=== PATIENT | male | born 1945 | race American Indian/Alaskan Native ===

== ENCOUNTER 2018-09-11 20:13 | Inpatient (IN) | payer MEDICARE ==
[2018-09-11 20:13] VITALS: BMI 22.8
--- NOTE | 2018-09-11 20:36 | C.PDOC ---
History Of Present Illness 73 year old male with PMHx TIA, HTN, CRI, seizure disorder presents to the ED for evaluation of SOB, weakness that started today. As per Family, patient appeared "winded" and could not walk without assistance. Patient denies history of asthma, CHF. Patient currently feels "back to normal" s/p nebulizer. Patient denies fever, chills, nausea, vomit, diarrhea, CP, palpitations, headache, dizziness, weakness, numbness, leg swelling. Patient currently taking diuretic. Patient's history limited due to clinical condition. LIMITED DUE TO CLIN COND SOB, WEAKNESS TODAY. PER FAMILY, PT APPEARED "WINDED" AND COULDNT WALK WO ASSISTANCE. PT DENIES HO ASTHMA, CHF. CURRENTLY FEELS "BACK TO NORMAL" S/P NEB. NO FEVER, CP, LEG SWELLING. ON DIURETIC. PMH TIA, HTN, CRI, SZ DO EXAM S/P DUONEB NARD APPEARS COMFORTABLE HEENT NEG LUNGS CTA B/L NO W/R/R NO RETRACTIONS, TACHYPNEA EXT NO EDEMA RRR REMAINDER NEG Time Seen by Provider: 09/11/18 20:25 Chief Complaint (Nursing): Shortness Of Breath History Per: Patient, Family History/Exam Limitations: clinical condition Onset/Duration Of Symptoms: Hrs Current Symptoms Are (Timing): Better Initiating Event: Upper Respiratory Illness Quality: "Pain" Current Respiratory Medications: See Home Med List Associated Symptoms: Other (feeling winded) Recent travel outside of the [place]: No Additional History Per: Patient Past Medical History Reviewed: Historical Data, Nursing Documentation, Vital Signs Vital Signs: Last Vital Signs Temp 97.3 F L 09/11/18 20:17 Pulse 101 H 09/11/18 20:17 Resp 40 H 09/11/18 20:17 BP 143/63 09/11/18 20:17 Pulse Ox 93 L 09/11/18 20:17 - Medical History PMH: Diabetes, HTN, Hypercholesterolemia, Hyperlipidemia, Seizures Denies: Chronic Kidney Disease Surgical History: No Surg Hx Family History: States: Unknown Family Hx - Social History Hx Tobacco Use: No Hx Alcohol Use: No Hx Substance Use: No - Immunization History Hx Tetanus Toxoid Vaccination: No Hx Influenza Vaccination: Yes Hx Pneumococcal Vaccination: Yes Review Of Systems Constitutional: Positive for: Weakness. Negative for: Fever, Chills Cardiovascular: Negative for: Chest Pain Respiratory: Positive for: Shortness of Breath. Negative for: Cough, Sputum, Wheezing Gastrointestinal: Negative for: Nausea, Vomiting, Abdominal Pain Genitourinary: Negative for: Dysuria, Hematuria Skin: Negative for: Rash Neurological: Negative for: Numbness, Headache, Dizziness Physical Exam - Physical Exam Appears: Non-toxic, Other (s/p duoneb appears comfortable) Skin: Normal Color, Warm, Dry Head: Atraumatic, Normacephalic Eye(s): bilateral: Normal Inspection Oral Mucosa: Moist Neck: Normal ROM, Supple Chest: Symmetrical Cardiovascular: Rhythm Regular Respiratory: Normal Breath Sounds, No Rales, No Rhonchi, No Wheezing, Other (no retractions, dyspnea, s/p nebulizer NARD) Gastrointestinal/Abdominal: Soft, No Tenderness, No Guarding, No Rebound Extremity: Normal ROM, No Tenderness, No Swelling Neurological/Psych: Oriented x3, Normal Speech, Normal Cognition Gait: Steady ED Course And Treatment - Laboratory Results Result Diagrams: 09/11/18 20:41 09/11/18 20:41 ECG: Interpreted By Ma ECG Rhythm: Sinus Rhythm ECG Interpretation: No Changes From Prior Rate From EC (BPM) O2 Sat by Pulse Oximetry: 93 Pulse Ox Interpretation: Abnormal Progress - Re-Evaluation Re-evaluation Note: 09/11/18 21:34 CODE SEPSIS ACTIVATED. NARD FEELS BETTER SINCE PRIOR EVAL. VSS. NEW RENAL INSUFF COMPARED TO PRIOR. ECHO 2016 REVIEWED, UNK CURRENT CARDIAC STATUS. WILL DEFER IVF SEPSIS PROTOCOL PENDING CARDIAC EVAL. 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 - Data Reviewed Data Reviewed: Lab, Diagnostic imaging, EKG, Old records Medical Decision Making Medical Decision Making: Plan: * VBG * EKG * Labs * CXR Disposition Counseled Patient/Family Regarding: Studies Performed, Diagnosis - Disposition Disposition: HOSPITALIZED Disposition Time: 22:10 Condition: STABLE - POA Present On Arrival: Poor Glycemic Control - Clinical Impression Clinical Impression: Acute on chronic renal insufficiency, Pneumonia - Scribe Statement The provider has reviewed the documentation as recorded by the Scribe Eduardo Godwin All medical record entries made by the Scribe were at my direction and personally dictated by me. I have reviewed the chart and agree that the record accurately reflects my personal performance of the history, physical exam, medical decision making, and the department course for this patient. I have also personally directed, reviewed, and agree with the discharge instructions and disposition.
[2018-09-11 20:45] LABS: BASO # 0.1 K/uL (0.0-0.2); BASO % 0.4 % (0.0-2.0); EOS % 0.1 % (0.0-4.0); HEMOGLOBIN 11.6 g/dL (12.0-18.0); LYMPH # 1.3 K/uL (1.0-4.3); LYMPH % 5.9 % (20.0-40.0); MEAN CELL VOLUME 85.4 fL (80.0-94.0); MEAN CORPUSCULAR HEMOGLOBIN 27.8 pg (27.0-31.0); MEAN CORPUSCULAR HGB CONC 32.5 g/dL (33.0-37.0); MEAN PLATELET VOLUME 8.1 fL (7.2-11.7); MONO # 1.6 K/uL (0.0-0.8); MONO % 7.2 % (0.0-10.0); NEUT # 18.8 K/uL (1.8-7.0); NEUT % 86.4 % (50.0-75.0); PLATELET COUNT 369 K/uL (130-400); RBC 4.17 Mil/uL (4.40-5.90); RED CELL DISTRIBUTION WIDTH 14.1 % (11.5-14.5)
[2018-09-11 20:47] LABS: VENOUS BLOOD GAS PCO2 38 mmHg (40-60); VENOUS BLOOD GAS PO2 43 mm/Hg (30-55); VENOUS BLOOD PH 7.32 (7.32-7.43)
[2018-09-11 20:48] LABS: WHITE BLOOD COUNT 21.7 K/uL (4.8-10.8)
[2018-09-11] MEDS ORDERED: Albuterol-Ipratrop 3 mg / 0.5 (3 ml) UD INH STA ×3 (20:54→20:56)
[2018-09-11] MEDS ORDERED: Cefepime IV 2 gm in Dextrose 2 GM/100 ML BAG IVPB STA (20:57)
[2018-09-11 21:08] LABS: ALB/GLOB RATIO 0.9 (1.0-2.1); ALBUMIN 4.1 g/dL (3.5-5.0); CALCIUM 9.4 mg/dl (8.6-10.4)
[2018-09-11 21:19] LABS: TROPONIN I 0.034 ng/mL (0.00-0.120)
[2018-09-11] MEDS ORDERED: Sodium Chloride 0.9% 250 ML IV ONE (21:36)
[2018-09-11 21:40] LABS: LYMPHOCYTE 3 % (20-40); MONOCYTE 6 % (0-10); NEUTROPHIL 91 % (50-75); PLATELET ESTIMATE NORMAL (NORMAL); TOTAL CELLS COUNTED 100
[2018-09-11 21:57] LABS: INR 1.2; PROTHROMBIN TIME 13.6 SECONDS (9.7-12.2)
[2018-09-11 22:50] LABS: URINE AMORPHOUS SEDIMENT FEW /ul (<OCC); URINE BACTERIA RARE (<OCC); URINE BILIRUBIN NEGATIVE (NEGATIVE); URINE BLOOD 2+ (NEGATIVE); URINE CLARITY Hazy (Clear); URINE GLUCOSE (UA) NORMAL (Normal); URINE LEUKOCYTE ESTERASE NEG Leu/uL (Negative); URINE PROTEIN 1+ mg/dL (NEGATIVE)
[2018-09-11 23:02] LABS: URINE COLOR YELLOW (YELLOW)
[2018-09-11] MEDS ORDERED: Azithromycin 500mg/250ML NS 500 MG/250 ML BAG IVPB STA (23:03)
[2018-09-11] MEDS ORDERED: Azithromycin 500mg/250ML NS 500 MG/250 ML BAG IVPB ONE (23:32)
[2018-09-12 00:24] LABS: VENOUS BLOOD GAS BASE EXCESS -5.7 mmol/L (0.0-2.0); VENOUS BLOOD GAS PCO2 31 mmHg (40-60); VENOUS BLOOD GAS PO2 52 mm/Hg (30-55); VENOUS BLOOD PH 7.38 (7.32-7.43)
[2018-09-12] MEDS: Dextrose 5%/0.9% NS 1,000 ML IV SCH ×2 (00:31→18:49)
[2018-09-12] MEDS: Albuterol-Ipratrop 3 mg / 0.5 (3 ml) UD INH SCH ×3 (03:24→19:12)
[2018-09-12 04:11] LABS: BASO # 0.3 K/uL (0.0-0.2); BASO % 1.2 % (0.0-2.0); EOS % 0.1 % (0.0-4.0); HEMOGLOBIN 10.5 g/dL (12.0-18.0); LYMPH % 4.6 % (20.0-40.0); MEAN CELL VOLUME 84.4 fL (80.0-94.0); MEAN CORPUSCULAR HEMOGLOBIN 27.7 pg (27.0-31.0); MEAN CORPUSCULAR HGB CONC 32.8 g/dL (33.0-37.0); MEAN PLATELET VOLUME 7.7 fL (7.2-11.7); MONO # 0.7 K/uL (0.0-0.8); MONO % 3.1 % (0.0-10.0); PLATELET COUNT 309 K/uL (130-400); RBC 3.79 Mil/uL (4.40-5.90); WHITE BLOOD COUNT 20.9 K/uL (4.8-10.8)
[2018-09-12 04:30] LABS: ALB/GLOB RATIO 0.9 (1.0-2.1); ALBUMIN 3.4 g/dL (3.5-5.0); CALCIUM 8.5 mg/dl (8.6-10.4)
[2018-09-12 05:11] LABS: BANDS 1 % (0-2); BASOPHIL 1 % (0-2); LYMPHOCYTE 3 % (20-40); MONOCYTE 4 % (0-10); NEUTROPHIL 91 % (50-75); PLATELET ESTIMATE NORMAL (NORMAL); TOTAL CELLS COUNTED 100
[2018-09-12] MEDS ORDERED: (Novolog) Insulin Aspart, Recombinant 100 u/ml 10 ml vial SC SCH (07:30)
[2018-09-12] MEDS: (Novolog) Insulin Aspart, Recombinant 100 u/ml 10 ml vial SC SCH ×4 (08:00→22:00)
--- NOTE | 2018-09-12 08:53 | RAD ---
Date of service: 09/11/2018 PROCEDURE: CHEST RADIOGRAPH, 1 VIEW HISTORY: SOB COMPARISON: 10/28/2015. FINDINGS: LUNGS: The right lung is hyperinflated. There is multifocal consolidation in the left lung, worse in the lower lobes. PLEURA: Small left pleural effusion. No pneumothorax. CARDIOVASCULAR: The heart is normal in size. No aortic atherosclerotic calcifications present. OSSEOUS STRUCTURES: Within normal limits for the patient's age. VISUALIZED UPPER ABDOMEN: Normal. OTHER FINDINGS: None. IMPRESSION: Multifocal pneumonia in the left lung, worse in the lower lobes. Small left pleural effusion.
--- NOTE | 2018-09-12 09:34 | CP.PCM.PN ---
Subjective - Date & Time of Evaluation Date of Evaluation: 09/12/18 Time of Evaluation: 09:34 - Subjective Subjective: H&P dictated #[id number] Objective - Vital Signs/Intake and Output Vital Signs (last 24 hours): Temp Pulse Resp BP Pulse Ox 98.2 F 99 H 24 152/65 H 97 09/12/18 08:30 09/12/18 08:30 09/12/18 08:30 09/12/18 08:30 09/12/18 08:30 Intake and Output: 09/12/18 09/12/18 06:59 18:59 Output Total 250 Balance -250 - Medications Medications: Current Medications Albuterol/Ipratropium (Duoneb 3 Mg/0.5 Mg (3 Ml) Ud) 3 ml INH RQ6 [facility] Last Admin: 09/12/18 03:24 Dose: Not Given Aspirin (Aspirin) 325 mg PO DAILY [facility] Carvedilol (Coreg) 12.5 mg PO Q12 [facility] Dextrose/Sodium Chloride (Dextrose 5%/0.9% Ns 1000 Ml) 1,000 mls @ 70 mls/hr IV .[id number] [facility] Last Admin: 09/12/18 00:31 Dose: 70 mls/hr Insulin Aspart (Novolog) 0 unit SC ACHS [facility]; Protocol Rosuvastatin Calcium (Crestor) 20 mg PO HS [facility] - Labs Labs: 09/12/18 04:08 09/12/18 04:08 PT 13.6 SECONDS (9.7-12.2) H 09/11/18 21:50 INR 1.2 09/11/18 21:50 APTT 33 SECONDS (21-34) 09/11/18 21:50
[2018-09-12] MEDS: Piperacill/Tazo 2.25gm in Dex 2.25 GM/50 ML BAG IVPB SCH ×3 (10:29→21:39)
[2018-09-12] MEDS ORDERED: (Novolog) Insulin Aspart, Recombinant 100 u/ml 10 ml vial ONE (12:10)
--- NOTE | 2018-09-12 13:24 | CT ---
Date of service: 09/11/2018 PROCEDURE: CT Chest without contrast HISTORY: r/o infiltrate COMPARISON: None available. TECHNIQUE: Contiguous axial images were obtained through the chest without intravenous contrast enhancement. Sagittal and coronal reconstructions were performed. Radiation dose (DLP): 325.83 mGy-cm. This CT exam was performed using one or more of the following dose reduction techniques: Automated exposure control, adjustment of the mA and/or kV according to patient size, and/or use of iterative reconstruction technique. FINDINGS: LUNGS: Extensive left lower lobe consolidation/opacity. Likely pneumonia. Patchy left apical infiltrate. Diffuse centrilobular pulmonary emphysema. No pulmonary mass. MEDIASTINUM: Unremarkable thoracic aorta. No aneurysm. Normal sized heart. Main pulmonary artery unremarkable. No vascular congestion. Solitary mildly enlarged precarinal lymph node, 10 mm in short axis. There is calcified atherosclerotic plaque in the thoracic aorta. Very small hiatal hernia. PLEURA: Trace left pleural effusion. No right pleural effusion. No pneumothorax. BONES: No fracture. No destructive lesion. UPPER ABDOMEN: Grossly unremarkable. OTHER FINDINGS: None. IMPRESSION: Left upper lobe and left lower lobe infiltrates. Trace left pleural effusion. Centrilobular pulmonary emphysema. Likely pneumonia. The preliminary findings for this examination were reported by [facility] at 12:35 a.m. on 09/12/2018. There is concurrence of this report with the preliminary findings.
--- NOTE | 2018-09-12 17:43 | CP.PCM.CON ---
History of Present Illness - History of Present Illness History of Present Illness: 73 year old male with PMH of TIA, HTN, CRI, and seizure disorder presents with 2 days of progressively worsening SOB, dyspnea on exertion, and generalized weakness. Patient was treated with nebulizer in ED to which he responded favorab ly. CT chest showed left sided infiltrate, patient initially started on azithromycin and cefepime. 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 There are no known recent sick contacts at home, although there are many children according to daughter. Denies fever, chills, chest pain. PMH: TIA, HTN, CRI, seizure disorder, TB exposure (March 2018, on isoniazid) PSH: denies All: denies FamH: noncontributary SocialH: lives with daughter; denies tobacco/alcohol/illicit drug use ROS: 10 point ROS negative except as mentioned in HPI Exam Lungs - diminished breath sounds bilaterally, no wheezes, rales, or rhonchi A&P 1. Pneumonia - 09/11/18 CXR: Multifocal pneumonia in left lung, worse in lower lobes, small left pleural effusion. - 09/11/[address]: L upper and L lower lobe infiltrates, trace left pleural effusion, centrilolobular pulmonary emphysema. - afebrile, WBC 20.9, continue to monitor - continue antibiotics, currently on Zosyn - continue Duoneb Past Patient History - Infectious Disease Hx of Infectious Diseases: None - Past Medical History & Family History Past Medical History?: Yes - Past Social History Smoking Status: Former Smoker - CARDIAC Hx Cardiac Disorders: Yes Hx Hypercholesterolemia: Yes Hx Hypertension: Yes - PULMONARY Hx Respiratory Disorders: No - NEUROLOGICAL Hx Seizures: Yes Hx Transient Ischemic Attacks (TIA): Yes ([address] [facility] [place] - HEENT Hx HEENT Problems: No - RENAL Hx Chronic Kidney Disease: No - ENDOCRINE/METABOLIC Hx Endocrine Disorders: Yes Hx Diabetes Mellitus Type 1: Yes - HEMATOLOGICAL/ONCOLOGICAL Hx Blood Disorders: No - INTEGUMENTARY Hx Dermatological Problems: No - MUSCULOSKELETAL/RHEUMATOLOGICAL Hx Musculoskeletal Disorders: Yes Hx Falls: Yes Hx Gout: Yes - GASTROINTESTINAL Hx Gastrointestinal Disorders: No - GENITOURINARY/GYNECOLOGICAL Hx Genitourinary Disorders: No - PSYCHIATRIC Hx Psychophysiologic Disorder: No Hx Substance Use: No - SURGICAL HISTORY Hx Surgeries: Yes Other/Comment: " vein surgery " for circulation - ANESTHESIA Hx Anesthesia: Yes Hx Anesthesia Reactions: No Has any member of the family had a problem w/ anesthesia?: No Meds Allergies/Adverse Reactions: Allergies Allergy/AdvReac Type Severity Reaction Status Date / Time lisinopril Allergy Verified 09/11/18 20:23 - Medications Medications: Current Medications Albuterol/Ipratropium (Duoneb 3 Mg/0.5 Mg (3 Ml) Ud) 3 ml INH RQ6 [facility] Last Admin: 09/12/18 10:23 Dose: 3 ml Aspirin (Aspirin) 325 mg PO DAILY [facility] Last Admin: 09/12/18 10:02 Dose: 325 mg Carvedilol (Coreg) 12.5 mg PO Q12 [facility] Last Admin: 09/12/18 10:02 Dose: 12.5 mg Heparin Sodium (Porcine) (Heparin) 5,000 units SC Q8 [facility] Dextrose/Sodium Chloride (Dextrose 5%/0.9% Ns 1000 Ml) 1,000 mls @ 70 mls/hr IV .[id number] [facility] Last Admin: 09/12/18 00:31 Dose: 70 mls/hr Piperacillin Sod/Tazobactam Sod (Zosyn 2.25 Gm Iv Premix) 2.25 gm in 50 mls @ 100 mls/hr IVPB Q6H [facility]; Protocol Last Admin: 09/12/18 10:29 Dose: 100 mls/hr Insulin Aspart (Novolog) 0 unit SC ACHS [facility]; Protocol Last Admin: 09/12/18 12:14 Dose: 1 unit Rosuvastatin Calcium (Crestor) 20 mg PO HS [facility] Results - Vital Signs Recent Vital Signs: Last Vital Signs Temp 98.0 F 09/12/18 15:01 Pulse 79 09/12/18 15:30 Resp 20 09/12/18 15:01 BP 147/77 09/12/18 15:01 Pulse Ox 97 09/12/18 15:01 - Labs Result Diagrams: 09/12/18 04:08 09/12/18 04:08 Labs: Laboratory Results - last 24 hr 09/11/18 09/11/18 09/11/18 20:21 20:30 20:41 WBC 21.7 H D RBC 4.17 L Hgb 11.6 L Hct 35.7 MCV 85.4 MCH 27.8 MCHC 32.5 L RDW 14.1 Plt Count 369 D MPV 8.1 Neut % (Auto) 86.4 H Lymph % (Auto) 5.9 L [place] % (Auto) 7.2 Eos % (Auto) 0.1 Baso % (Auto) 0.4 Neut # (Auto) 18.8 H Lymph # (Auto) 1.3 [place] # (Auto) 1.6 H Eos # (Auto) 0.0 Baso # (Auto) 0.1 Neutrophils % (Manual) 91 H Band Neutrophils % Lymphocytes % (Manual) 3 L Monocytes % (Manual) 6 Basophils % (Manual) Platelet Estimate Normal RBC Morphology Normal ESR PT INR APTT pO2 43 VBG pH 7.32 VBG pCO2 38 L VBG HCO3 19.6 VBG Total CO2 20.8 L VBG O2 Sat (Calc) 76.1 H VBG Base Excess -6.0 L VBG Potassium 5.5 H Sodium 133.0 Chloride 99.0 Glucose 149 H Lactate 2.2 H Potassium Carbon Dioxide Anion Gap BUN Creatinine Est GFR ( Amer) Est GFR (Non-Af Amer) POC Glucose (mg/dL) 135 H Random Glucose Hemoglobin A1c Calcium Phosphorus Magnesium Total Bilirubin AST ALT Alkaline Phosphatase Troponin I C-Reactive Protein NT-Pro-B Natriuret Pep Total Protein Albumin Globulin Albumin/Globulin Ratio Triglycerides Cholesterol LDL Cholesterol Direct HDL Cholesterol Procalcitonin TSH 3rd Generation Venous Blood Potassium 5.5 H Urine Color Urine Clarity Urine pH Ur Specific [place] Urine Protein Urine Glucose (UA) Urine Ketones Urine Blood Urine Nitrate Urine Bilirubin Urine Urobilinogen Ur Leukocyte Esterase Urine WBC (Auto) Urine RBC (Auto) Amorphous Sediment Urine Bacteria Urine Osmolality Ur Random Sodium Ur Random Potassium Influenza Typ A,B (EIA) Ur L.pneumophila Ag Mycoplasma pneumon IgM 09/11/18 09/11/18 09/11/18 20:41 20:41 21:50 WBC RBC Hgb Hct MCV MCH MCHC RDW Plt Count MPV Neut % (Auto) Lymph % (Auto) [place] % (Auto) Eos % (Auto) Baso % (Auto) Neut # (Auto) Lymph # (Auto) [place] # (Auto) Eos # (Auto) Baso # (Auto) Neutrophils % (Manual) Band Neutrophils % Lymphocytes % (Manual) Monocytes % (Manual) Basophils % (Manual) Platelet Estimate RBC Morphology ESR PT 13.6 H INR 1.2 APTT 33 pO2 VBG pH VBG pCO2 VBG HCO3 VBG Total CO2 VBG O2 Sat (Calc) VBG Base Excess VBG Potassium Sodium 133 Chloride 100 Glucose Lactate Potassium 4.3 Carbon Dioxide 18 L Anion Gap 20 BUN 72 H Creatinine 3.3 H Est GFR ( Amer) 22 Est GFR (Non-Af Amer) 18 POC Glucose (mg/dL) Random Glucose 152 H D Hemoglobin A1c Calcium 9.4 Phosphorus 5.6 H Magnesium 2.3 Total Bilirubin 1.4 H AST 134 H ALT 55 Alkaline Phosphatase 185 H Troponin I 0.0340 C-Reactive Protein NT-Pro-B Natriuret Pep 871 Total Protein 8.8 H Albumin 4.1 Globulin 4.7 H Albumin/Globulin Ratio 0.9 L Triglycerides Cholesterol LDL Cholesterol Direct HDL Cholesterol Procalcitonin TSH 3rd Generation Venous Blood Potassium Urine Color Urine Clarity Urine pH Ur Specific [place] Urine Protein Urine Glucose (UA) Urine Ketones Urine Blood Urine Nitrate Urine Bilirubin Urine Urobilinogen Ur Leukocyte Esterase Urine WBC (Auto) Urine RBC (Auto) Amorphous Sediment Urine Bacteria Urine Osmolality Ur Random Sodium Ur Random Potassium Influenza Typ A,B (EIA) Ur L.pneumophila Ag Mycoplasma pneumon IgM 09/11/18 09/11/18 09/12/18 22:31 22:42 00:20 WBC RBC Hgb Hct MCV MCH MCHC RDW Plt Count MPV Neut % (Auto) Lymph % (Auto) [place] % (Auto) Eos % (Auto) Baso % (Auto) Neut # (Auto) Lymph # (Auto) [place] # (Auto) Eos # (Auto) Baso # (Auto) Neutrophils % (Manual) Band Neutrophils % Lymphocytes % (Manual) Monocytes % (Manual) Basophils % (Manual) Platelet Estimate RBC Morphology ESR PT INR APTT pO2 52 VBG pH 7.38 VBG pCO2 31 L VBG HCO3 20.2 VBG Total CO2 19.3 L VBG O2 Sat (Calc) 90.9 H VBG Base Excess -5.7 L VBG Potassium 3.2 L Sodium 132.0 Chloride 103.0 Glucose 142 H Lactate 1.2 Potassium Carbon Dioxide Anion Gap BUN Creatinine Est GFR ( Amer) Est GFR (Non-Af Amer) POC Glucose (mg/dL) Random Glucose Hemoglobin A1c Calcium Phosphorus Magnesium Total Bilirubin AST ALT Alkaline Phosphatase Troponin I C-Reactive Protein NT-Pro-B Natriuret Pep Total Protein Albumin Globulin Albumin/Globulin Ratio Triglycerides Cholesterol LDL Cholesterol Direct HDL Cholesterol Procalcitonin TSH 3rd Generation Venous Blood Potassium 3.2 L Urine Color Yellow Urine Clarity Hazy Urine pH 5.0 Ur Specific [place] 1.012 Urine Protein 1+ H Urine Glucose (UA) Normal Urine Ketones Negative Urine Blood 2+ H Urine Nitrate Negative Urine Bilirubin Negative Urine Urobilinogen 4.0 Ur Leukocyte Esterase Neg Urine WBC (Auto) < 1 Urine RBC (Auto) 22 H Amorphous Sediment Few H Urine Bacteria Rare Urine Osmolality Ur Random Sodium Ur Random Potassium Influenza Typ A,B (EIA) Negative for flu a/b Ur L.pneumophila Ag Mycoplasma pneumon IgM 09/12/18 09/12/18 09/12/18 01:11 02:00 02:00 WBC RBC Hgb Hct MCV MCH MCHC RDW Plt Count MPV Neut % (Auto) Lymph % (Auto) [place] % (Auto) Eos % (Auto) Baso % (Auto) Neut # (Auto) Lymph # (Auto) [place] # (Auto) Eos # (Auto) Baso # (Auto) Neutrophils % (Manual) Band Neutrophils % Lymphocytes % (Manual) Monocytes % (Manual) Basophils % (Manual) Platelet Estimate RBC Morphology ESR 120 H PT INR APTT pO2 VBG pH VBG pCO2 VBG HCO3 VBG Total CO2 VBG O2 Sat (Calc) VBG Base Excess VBG Potassium Sodium Chloride Glucose Lactate Potassium Carbon Dioxide Anion Gap BUN Creatinine Est GFR ( Amer) Est GFR (Non-Af Amer) POC Glucose (mg/dL) Random Glucose Hemoglobin A1c Calcium Phosphorus Magnesium Total Bilirubin AST ALT Alkaline Phosphatase Troponin I C-Reactive Protein NT-Pro-B Natriuret Pep Total Protein Albumin Globulin Albumin/Globulin Ratio Triglycerides Cholesterol LDL Cholesterol Direct HDL Cholesterol Procalcitonin TSH 3rd Generation Venous Blood Potassium Urine Color Urine Clarity Urine pH Ur Specific [place] Urine Protein Urine Glucose (UA) Urine Ketones Urine Blood Urine Nitrate Urine Bilirubin Urine Urobilinogen Ur Leukocyte Esterase Urine WBC (Auto) Urine RBC (Auto) Amorphous Sediment Urine Bacteria Urine Osmolality Ur Random Sodium 19 Ur Random Potassium 42.3 Influenza Typ A,B (EIA) Ur L.pneumophila Ag Mycoplasma pneumon IgM Negative 09/12/18 09/12/18 09/12/18 02:00 02:00 02:00 WBC RBC Hgb Hct MCV MCH MCHC RDW Plt Count MPV Neut % (Auto) Lymph % (Auto) [place] % (Auto) Eos % (Auto) Baso % (Auto) Neut # (Auto) Lymph # (Auto) [place] # (Auto) Eos # (Auto) Baso # (Auto) Neutrophils % (Manual) Band Neutrophils % Lymphocytes % (Manual) Monocytes % (Manual) Basophils % (Manual) Platelet Estimate RBC Morphology ESR PT INR APTT pO2 VBG pH VBG pCO2 VBG HCO3 VBG Total CO2 VBG O2 Sat (Calc) VBG Base Excess VBG Potassium Sodium Chloride Glucose Lactate Potassium Carbon Dioxide Anion Gap BUN Creatinine Est GFR ( Amer) Est GFR (Non-Af Amer) POC Glucose (mg/dL) Random Glucose Hemoglobin A1c Calcium Phosphorus Magnesium Total Bilirubin AST ALT Alkaline Phosphatase Troponin I C-Reactive Protein 267.30 H NT-Pro-B Natriuret Pep Total Protein Albumin Globulin Albumin/Globulin Ratio Triglycerides Cholesterol LDL Cholesterol Direct HDL Cholesterol Procalcitonin 25.55 H TSH 3rd Generation Venous Blood Potassium Urine Color Urine Clarity Urine pH Ur Specific [place] Urine Protein Urine Glucose (UA) Urine Ketones Urine Blood Urine Nitrate Urine Bilirubin Urine Urobilinogen Ur Leukocyte Esterase Urine WBC (Auto) Urine RBC (Auto) Amorphous Sediment Urine Bacteria Urine Osmolality 383 Ur Random Sodium Ur Random Potassium Influenza Typ A,B (EIA) Ur L.pneumophila Ag Mycoplasma pneumon IgM 09/12/18 09/12/18 09/12/18 04:01 04:08 04:08 WBC 20.9 H RBC 3.79 L Hgb 10.5 L Hct 32.0 L MCV 84.4 MCH 27.7 MCHC 32.8 L RDW 14.0 Plt Count 309 MPV 7.7 Neut % (Auto) 91.0 H Lymph % (Auto) 4.6 L [place] % (Auto) 3.1 Eos % (Auto) 0.1 Baso % (Auto) 1.2 Neut # (Auto) 19.0 H Lymph # (Auto) 1.0 [place] # (Auto) 0.7 Eos # (Auto) 0.0 Baso # (Auto) 0.3 H Neutrophils % (Manual) 91 H Band Neutrophils % 1 Lymphocytes % (Manual) 3 L Monocytes % (Manual) 4 Basophils % (Manual) 1 Platelet Estimate Normal RBC Morphology ESR PT INR APTT pO2 VBG pH VBG pCO2 VBG HCO3 VBG Total CO2 VBG O2 Sat (Calc) VBG Base Excess VBG Potassium Sodium 131 L Chloride 100 Glucose Lactate Potassium 3.6 Carbon Dioxide 17 L Anion Gap 17 BUN 72 H Creatinine 2.8 H Est GFR ( Amer) 27 Est GFR (Non-Af Amer) 22 POC Glucose (mg/dL) Random Glucose 158 H Hemoglobin A1c Calcium 8.5 L Phosphorus Magnesium Total Bilirubin 1.4 H AST 118 H ALT 61 Alkaline Phosphatase 157 H Troponin I C-Reactive Protein NT-Pro-B Natriuret Pep Total Protein 7.2 Albumin 3.4 L Globulin 3.7 Albumin/Globulin Ratio 0.9 L Triglycerides 151 H D Cholesterol 105 LDL Cholesterol Direct 34 HDL Cholesterol 14 L Procalcitonin TSH 3rd Generation 1.09 Venous Blood Potassium Urine Color Urine Clarity Urine pH Ur Specific [place] Urine Protein Urine Glucose (UA) Urine Ketones Urine Blood Urine Nitrate Urine Bilirubin Urine Urobilinogen Ur Leukocyte Esterase Urine WBC (Auto) Urine RBC (Auto) Amorphous Sediment Urine Bacteria Urine Osmolality Ur Random Sodium Ur Random Potassium Influenza Typ A,B (EIA) Ur L.pneumophila Ag Negative Mycoplasma pneumon IgM 09/12/18 09/12/18 09/12/18 04:08 08:00 11:55 WBC RBC Hgb Hct MCV MCH MCHC RDW Plt Count MPV Neut % (Auto) Lymph % (Auto) [place] % (Auto) Eos % (Auto) Baso % (Auto) Neut # (Auto) Lymph # (Auto) [place] # (Auto) Eos # (Auto) Baso # (Auto) Neutrophils % (Manual) Band Neutrophils % Lymphocytes % (Manual) Monocytes % (Manual) Basophils % (Manual) Platelet Estimate RBC Morphology ESR PT INR APTT pO2 VBG pH VBG pCO2 VBG HCO3 VBG Total CO2 VBG O2 Sat (Calc) VBG Base Excess VBG Potassium Sodium Chloride Glucose Lactate Potassium Carbon Dioxide Anion Gap BUN Creatinine Est GFR ( Amer) Est GFR (Non-Af Amer) POC Glucose (mg/dL) 144 H 157 H Random Glucose Hemoglobin A1c 6.0 Calcium Phosphorus Magnesium Total Bilirubin AST ALT Alkaline Phosphatase Troponin I C-Reactive Protein NT-Pro-B Natriuret Pep Total Protein Albumin Globulin Albumin/Globulin Ratio Triglycerides Cholesterol LDL Cholesterol Direct HDL Cholesterol Procalcitonin TSH 3rd Generation Venous Blood Potassium Urine Color Urine Clarity Urine pH Ur Specific [place] Urine Protein Urine Glucose (UA) Urine Ketones Urine Blood Urine Nitrate Urine Bilirubin Urine Urobilinogen Ur Leukocyte Esterase Urine WBC (Auto) Urine RBC (Auto) Amorphous Sediment Urine Bacteria Urine Osmolality Ur Random Sodium Ur Random Potassium Influenza Typ A,B (EIA) Ur L.pneumophila Ag Mycoplasma pneumon IgM 09/12/18 16:36 WBC RBC Hgb Hct MCV MCH MCHC RDW Plt Count MPV Neut % (Auto) Lymph % (Auto) [place] % (Auto) Eos % (Auto) Baso % (Auto) Neut # (Auto) Lymph # (Auto) [place] # (Auto) Eos # (Auto) Baso # (Auto) Neutrophils % (Manual) Band Neutrophils % Lymphocytes % (Manual) Monocytes % (Manual) Basophils % (Manual) Platelet Estimate RBC Morphology ESR PT INR APTT pO2 VBG pH VBG pCO2 VBG HCO3 VBG Total CO2 VBG O2 Sat (Calc) VBG Base Excess VBG Potassium Sodium Chloride Glucose Lactate Potassium Carbon Dioxide Anion Gap BUN Creatinine Est GFR ( Amer) Est GFR (Non-Af Amer) POC Glucose (mg/dL) 166 H Random Glucose Hemoglobin A1c Calcium Phosphorus Magnesium Total Bilirubin AST ALT Alkaline Phosphatase Troponin I C-Reactive Protein NT-Pro-B Natriuret Pep Total Protein Albumin Globulin Albumin/Globulin Ratio Triglycerides Cholesterol LDL Cholesterol Direct HDL Cholesterol Procalcitonin TSH 3rd Generation Venous Blood Potassium Urine Color Urine Clarity Urine pH Ur Specific [place] Urine Protein Urine Glucose (UA) Urine Ketones Urine Blood Urine Nitrate Urine Bilirubin Urine Urobilinogen Ur Leukocyte Esterase Urine WBC (Auto) Urine RBC (Auto) Amorphous Sediment Urine Bacteria Urine Osmolality Ur Random Sodium Ur Random Potassium Influenza Typ A,B (EIA) Ur L.pneumophila Ag Mycoplasma pneumon IgM
--- NOTE | 2018-09-12 17:48 | CP.PCM.CON ---
History of Present Illness - History of Present Illness History of Present Illness: 73 year old male with PMHx TIA, HTN, CRI, seizure disorder presents with SOB and weakness As per patient's daughter, [facility] and has been on prophylactic isoniazid. PMH: TIA, HTN, CRI, seizure disorder, TB exposure (March 2018, on isoniazid) PSH: denies All: denies FamH: noncontributary SocialH: lives with daughter; denies tobacco/alcohol/illicit drug use - Medical History PMH: Diabetes, HTN, Hypercholesterolemia, Hyperlipidemia, Seizures Denies: Chronic Kidney Disease Review of Systems - Review of Systems Systems not reviewed;Unavailable: Altered Mental Status All systems: reviewed and no additional remarkable complaints except - Constitutional Constitutional: As Per HPI - EENT Eyes: absent: As Per HPI, Blind Spots, Blurred Vision, Change in Vision, Decreased Night Vision, Diplopia, Discharge, Dry Eye, Exophthalmos, Floaters, Irritation, Itchy Eyes, Loss of Peripheral Vision, Pain, Photophobia, Requires Corrective Lenses, Sees Flashes, Spots in Vision, Tunnel Vision, Other Visual Disturbances, Loss of Vision, Other Ears: absent: As Per HPI, Decreased Hearing, Ear Discharge, Ear Pain, Tinnitus, Abnormal Hearing, Disequilibrium, Dizziness, Other Nose/Mouth/Throat: absent: As Per HPI, Epistaxis, Nasal Congestion, Nasal Discharge, Nasal Obstruction, Nasal Trauma, Nose Pain, Post Nasal Drip, Sinus Pain, Sinus Pressure, Bleeding Gums, Change in Voice, Dental Pain, Dry Mouth, Dysphagia, Halitosis, Hoarsness, Lip Swelling, Mouth Lesions, Mouth Pain, Odynophagia, Sore Throat, Throat Swelling, Tongue Swelling, Facial Pain, Neck Pain, Neck Mass, Other - Cardiovascular Cardiovascular: As Per HPI - Respiratory Respiratory: As Per HPI - Gastrointestinal Gastrointestinal: absent: As Per HPI, Abdominal Pain, Belching, Bloating, Change in Bowel Habits, Change in Stool Character, Coffee Ground Emesis, Constipation, Cramping, Diarrhea, Dyspepsia, Dysphagia, Early Satiety, Excessive Flatus, Fecal Incontinence, Heartburn, Hematemesis, Hematochezia, Loose Stools, Melena, Nausea, Odynophagia, Temesmus, Vomiting, Other - Genitourinary Genitourinary: absent: As Per HPI, Change in Urinary Stream, Difficulty Urinating, Dysuria, Flank Pain, Hematuria, Pyuria, Nocturia, Urinary Incontinence, Urinary Frequency, Urinary Hesitance, Urinary Urgency, Voiding Freq/Small Amts, Freq UTI, Hx Renal/Bladder Calculi, Hx /Renal Surgery, Bladder Distension, Other - Musculoskeletal Musculoskeletal: absent: As Per HPI, Abnormal Gait, Arthralgias, Atrophy, Back Pain, Deformity, Joint Swelling, Limited Range of Motion, Loss of Height, Muscle Cramps, Muscle Weakness, Myalgias, Neck Pain, Numbness, Radiating Pain into Limb, Stiffness, Tingling, Other - Integumentary Integumentary: absent: As Per HPI, Acne, Alopecia, Bleeding Lesions, Change in Hair, Change in Nails, Change in Pigmentation, Changing Lesions, Dry Skin, Erythema, Furuncle, Hirsutism, Lesions, New Lesions, Non-Healing Lesions, Photo sensitivity, Pruritus, Rash, Skin Pain, Skin Ulcer, Sores, Striae, Swelling, Unusual Bruising, Wounds, Jaundice, Other - Neurological Neurological: As Per HPI - Psychiatric Psychiatric: absent: As Per HPI, Abnormal Sleep Pattern, Anhedonia, Anxiety, Auditory Hallucinations, Behavioral Changes, Change in Appetite, Change in Libido, Confusion, Depression, Difficulty Concentrating, Hallucinations, Homicidal Ideation, Hopelessness, Irritability, Memory Loss, Mood Swings, Panic Attacks, Paranoia, Suicidal Ideation, Visual Hallucinations, Tactile Hallucinations, Other - Endocrine Endocrine: absent: As Per HPI, Change in Body Appearance, Change in Libido, Cold Intolorance, Deepening of Voice, Excessive Sweating, Fatigue, Flushing, Heat Intolorance, Increase in Ring/Shoe/Hat Size, Palpitations, Polydipsia, Polyphagia, Polyuria, Other - Hematologic/Lymphatic Hematologic: absent: As Per HPI, Easy Bleeding, Easy Bruising, Lymphadenopathy, Other Past Patient History - Infectious Disease Hx of Infectious Diseases: None - Past Medical History & Family History Past Medical History?: Yes - Past Social History Smoking Status: Former Smoker - CARDIAC Hx Cardiac Disorders: Yes Hx Hypercholesterolemia: Yes Hx Hypertension: Yes - PULMONARY Hx Respiratory Disorders: No - NEUROLOGICAL Hx Seizures: Yes Hx Transient Ischemic Attacks (TIA): Yes (2018 dx at [facility] [place]) - HEENT Hx HEENT Problems: No - RENAL Hx Chronic Kidney Disease: No - ENDOCRINE/METABOLIC Hx Endocrine Disorders: Yes Hx Diabetes Mellitus Type 1: Yes - HEMATOLOGICAL/ONCOLOGICAL Hx Blood Disorders: No - INTEGUMENTARY Hx Dermatological Problems: No - MUSCULOSKELETAL/RHEUMATOLOGICAL Hx Musculoskeletal Disorders: Yes Hx Falls: Yes Hx Gout: Yes - GASTROINTESTINAL Hx Gastrointestinal Disorders: No - GENITOURINARY/GYNECOLOGICAL Hx Genitourinary Disorders: No - PSYCHIATRIC Hx Psychophysiologic Disorder: No Hx Substance Use: No - SURGICAL HISTORY Hx Surgeries: Yes Other/Comment: " vein surgery " for circulation - ANESTHESIA Hx Anesthesia: Yes Hx Anesthesia Reactions: No Has any member of the family had a problem w/ anesthesia?: No Meds Allergies/Adverse Reactions: Allergies Allergy/AdvReac Type Severity Reaction Status Date / Time lisinopril Allergy Verified 09/11/18 20:23 - Medications Medications: Current Medications Albuterol/Ipratropium (Duoneb 3 Mg/0.5 Mg (3 Ml) Ud) 3 ml INH RQ6 [facility] Last Admin: 09/12/18 10:23 Dose: 3 ml Aspirin (Aspirin) 325 mg PO DAILY [facility] Last Admin: 09/12/18 10:02 Dose: 325 mg Carvedilol (Coreg) 12.5 mg PO Q12 [facility] Last Admin: 09/12/18 10:02 Dose: 12.5 mg Heparin Sodium (Porcine) (Heparin) 5,000 units SC Q8 [facility] Dextrose/Sodium Chloride (Dextrose 5%/0.9% Ns 1000 Ml) 1,000 mls @ 70 mls/hr IV .[id number] [facility] Last Admin: 09/12/18 00:31 Dose: 70 mls/hr Piperacillin Sod/Tazobactam Sod (Zosyn 2.25 Gm Iv Premix) 2.25 gm in 50 mls @ 100 mls/hr IVPB Q6H [facility]; Protocol Last Admin: 09/12/18 10:29 Dose: 100 mls/hr Insulin Aspart (Novolog) 0 unit SC ACHS [facility]; Protocol Last Admin: 09/12/18 12:14 Dose: 1 unit Rosuvastatin Calcium (Crestor) 20 mg PO HS [facility] Physical Exam - Constitutional Appears: Non-toxic, Confused, Cachectic, Chronically Ill - Head Exam Head Exam: ATRAUMATIC, NORMAL INSPECTION, NORMOCEPHALIC - Eye Exam Eye Exam: PERRL. absent: Scleral icterus - ENT Exam ENT Exam: Mucous Membranes Dry - Neck Exam Neck exam: Negative for: Lymphadenopathy - Respiratory Exam Respiratory Exam: Decreased Breath Sounds, Prolonged Expiratory Phase, Rhonchi - Cardiovascular Exam Cardiovascular Exam: REGULAR RHYTHM, +S1, +S2 - GI/Abdominal Exam GI & Abdominal Exam: Diminished Bowel Sounds, Distended, Soft. absent: Tenderness - Rectal Exam Rectal Exam: Deferred - Exam Exam: NORMAL INSPECTION - Extremities Exam Extremities exam: Positive for: pedal pulses present. Negative for: calf tenderness, pedal edema, tenderness - Back Exam Back exam: absent: CVA tenderness (L), CVA tenderness (R), paraspinal tenderness - Neurological Exam Neurological exam: Alert, Altered, CN II-XII Intact - Psychiatric Exam Psychiatric exam: Depressed - Skin Skin Exam: Dry Results - Vital Signs Recent Vital Signs: Last Vital Signs Temp 98.0 F 09/12/18 15:01 Pulse 79 09/12/18 15:30 Resp 20 09/12/18 15:01 BP 147/77 09/12/18 15:01 Pulse Ox 97 09/12/18 15:01 - Labs Result Diagrams: 09/14/18 07:17 09/14/18 07:17 Labs: Laboratory Results - last 24 hr 09/11/18 09/11/18 09/11/18 20:21 20:30 20:41 WBC 21.7 H D RBC 4.17 L Hgb 11.6 L Hct 35.7 MCV 85.4 MCH 27.8 MCHC 32.5 L RDW 14.1 Plt Count 369 D MPV 8.1 Neut % (Auto) 86.4 H Lymph % (Auto) 5.9 L Smyth % (Auto) 7.2 Eos % (Auto) 0.1 Baso % (Auto) 0.4 Neut # (Auto) 18.8 H Lymph # (Auto) 1.3 Smyth # (Auto) 1.6 H Eos # (Auto) 0.0 Baso # (Auto) 0.1 Neutrophils % (Manual) 91 H Band Neutrophils % Lymphocytes % (Manual) 3 L Monocytes % (Manual) 6 Basophils % (Manual) Platelet Estimate Normal RBC Morphology Normal ESR PT INR APTT pO2 43 VBG pH 7.32 VBG pCO2 38 L VBG HCO3 19.6 VBG Total CO2 20.8 L VBG O2 Sat (Calc) 76.1 H VBG Base Excess -6.0 L VBG Potassium 5.5 H Sodium 133.0 Chloride 99.0 Glucose 149 H Lactate 2.2 H Potassium Carbon Dioxide Anion Gap BUN Creatinine Est GFR ( Amer) Est GFR (Non-Af Amer) POC Glucose (mg/dL) 135 H Random Glucose Hemoglobin A1c Calcium Phosphorus Magnesium Total Bilirubin AST ALT Alkaline Phosphatase Troponin I C-Reactive Protein NT-Pro-B Natriuret Pep Total Protein Albumin Globulin Albumin/Globulin Ratio Triglycerides Cholesterol LDL Cholesterol Direct HDL Cholesterol Procalcitonin TSH 3rd Generation Venous Blood Potassium 5.5 H Urine Color Urine Clarity Urine pH Ur Specific Kendall Urine Protein Urine Glucose (UA) Urine Ketones Urine Blood Urine Nitrate Urine Bilirubin Urine Urobilinogen Ur Leukocyte Esterase Urine WBC (Auto) Urine RBC (Auto) Amorphous Sediment Urine Bacteria Urine Osmolality Ur Random Sodium Ur Random Potassium Influenza Typ A,B (EIA) Ur L.pneumophila Ag Mycoplasma pneumon IgM 09/11/18 09/11/18 09/11/18 20:41 20:41 21:50 WBC RBC Hgb Hct MCV MCH MCHC RDW Plt Count MPV Neut % (Auto) Lymph % (Auto) Smyth % (Auto) Eos % (Auto) Baso % (Auto) Neut # (Auto) Lymph # (Auto) Smyth # (Auto) Eos # (Auto) Baso # (Auto) Neutrophils % (Manual) Band Neutrophils % Lymphocytes % (Manual) Monocytes % (Manual) Basophils % (Manual) Platelet Estimate RBC Morphology ESR PT 13.6 H INR 1.2 APTT 33 pO2 VBG pH VBG pCO2 VBG HCO3 VBG Total CO2 VBG O2 Sat (Calc) VBG Base Excess VBG Potassium Sodium 133 Chloride 100 Glucose Lactate Potassium 4.3 Carbon Dioxide 18 L Anion Gap 20 BUN 72 H Creatinine 3.3 H Est GFR ( Amer) 22 Est GFR (Non-Af Amer) 18 POC Glucose (mg/dL) Random Glucose 152 H D Hemoglobin A1c Calcium 9.4 Phosphorus 5.6 H Magnesium 2.3 Total Bilirubin 1.4 H AST 134 H ALT 55 Alkaline Phosphatase 185 H Troponin I 0.0340 C-Reactive Protein NT-Pro-B Natriuret Pep 871 Total Protein 8.8 H Albumin 4.1 Globulin 4.7 H Albumin/Globulin Ratio 0.9 L Triglycerides Cholesterol LDL Cholesterol Direct HDL Cholesterol Procalcitonin TSH 3rd Generation Venous Blood Potassium Urine Color Urine Clarity Urine pH Ur Specific Kendall Urine Protein Urine Glucose (UA) Urine Ketones Urine Blood Urine Nitrate Urine Bilirubin Urine Urobilinogen Ur Leukocyte Esterase Urine WBC (Auto) Urine RBC (Auto) Amorphous Sediment Urine Bacteria Urine Osmolality Ur Random Sodium Ur Random Potassium Influenza Typ A,B (EIA) Ur L.pneumophila Ag Mycoplasma pneumon IgM 09/11/18 09/11/18 09/12/18 22:31 22:42 00:20 WBC RBC Hgb Hct MCV MCH MCHC RDW Plt Count MPV Neut % (Auto) Lymph % (Auto) Smyth % (Auto) Eos % (Auto) Baso % (Auto) Neut # (Auto) Lymph # (Auto) Smyth # (Auto) Eos # (Auto) Baso # (Auto) Neutrophils % (Manual) Band Neutrophils % Lymphocytes % (Manual) Monocytes % (Manual) Basophils % (Manual) Platelet Estimate RBC Morphology ESR PT INR APTT pO2 52 VBG pH 7.38 VBG pCO2 31 L VBG HCO3 20.2 VBG Total CO2 19.3 L VBG O2 Sat (Calc) 90.9 H VBG Base Excess -5.7 L VBG Potassium 3.2 L Sodium 132.0 Chloride 103.0 Glucose 142 H Lactate 1.2 Potassium Carbon Dioxide Anion Gap BUN Creatinine Est GFR ( Amer) Est GFR (Non-Af Amer) POC Glucose (mg/dL) Random Glucose Hemoglobin A1c Calcium Phosphorus Magnesium Total Bilirubin AST ALT Alkaline Phosphatase Troponin I C-Reactive Protein NT-Pro-B Natriuret Pep Total Protein Albumin Globulin Albumin/Globulin Ratio Triglycerides Cholesterol LDL Cholesterol Direct HDL Cholesterol Procalcitonin TSH 3rd Generation Venous Blood Potassium 3.2 L Urine Color Yellow Urine Clarity Hazy Urine pH 5.0 Ur Specific Kendall 1.012 Urine Protein 1+ H Urine Glucose (UA) Normal Urine Ketones Negative Urine Blood 2+ H Urine Nitrate Negative Urine Bilirubin Negative Urine Urobilinogen 4.0 Ur Leukocyte Esterase Neg Urine WBC (Auto) < 1 Urine RBC (Auto) 22 H Amorphous Sediment Few H Urine Bacteria Rare Urine Osmolality Ur Random Sodium Ur Random Potassium Influenza Typ A,B (EIA) Negative for flu a/b Ur L.pneumophila Ag Mycoplasma pneumon IgM 09/12/18 09/12/18 09/12/18 01:11 02:00 02:00 WBC RBC Hgb Hct MCV MCH MCHC RDW Plt Count MPV Neut % (Auto) Lymph % (Auto) Smyth % (Auto) Eos % (Auto) Baso % (Auto) Neut # (Auto) Lymph # (Auto) Smyth # (Auto) Eos # (Auto) Baso # (Auto) Neutrophils % (Manual) Band Neutrophils % Lymphocytes % (Manual) Monocytes % (Manual) Basophils % (Manual) Platelet Estimate RBC Morphology ESR 120 H PT INR APTT pO2 VBG pH VBG pCO2 VBG HCO3 VBG Total CO2 VBG O2 Sat (Calc) VBG Base Excess VBG Potassium Sodium Chloride Glucose Lactate Potassium Carbon Dioxide Anion Gap BUN Creatinine Est GFR ( Amer) Est GFR (Non-Af Amer) POC Glucose (mg/dL) Random Glucose Hemoglobin A1c Calcium Phosphorus Magnesium Total Bilirubin AST ALT Alkaline Phosphatase Troponin I C-Reactive Protein NT-Pro-B Natriuret Pep Total Protein Albumin Globulin Albumin/Globulin Ratio Triglycerides Cholesterol LDL Cholesterol Direct HDL Cholesterol Procalcitonin TSH 3rd Generation Venous Blood Potassium Urine Color Urine Clarity Urine pH Ur Specific Kendall Urine Protein Urine Glucose (UA) Urine Ketones Urine Blood Urine Nitrate Urine Bilirubin Urine Urobilinogen Ur Leukocyte Esterase Urine WBC (Auto) Urine RBC (Auto) Amorphous Sediment Urine Bacteria Urine Osmolality Ur Random Sodium 19 Ur Random Potassium 42.3 Influenza Typ A,B (EIA) Ur L.pneumophila Ag Mycoplasma pneumon IgM Negative 09/12/18 09/12/18 09/12/18 02:00 02:00 02:00 WBC RBC Hgb Hct MCV MCH MCHC RDW Plt Count MPV Neut % (Auto) Lymph % (Auto) Smyth % (Auto) Eos % (Auto) Baso % (Auto) Neut # (Auto) Lymph # (Auto) Smyth # (Auto) Eos # (Auto) Baso # (Auto) Neutrophils % (Manual) Band Neutrophils % Lymphocytes % (Manual) Monocytes % (Manual) Basophils % (Manual) Platelet Estimate RBC Morphology ESR PT INR APTT pO2 VBG pH VBG pCO2 VBG HCO3 VBG Total CO2 VBG O2 Sat (Calc) VBG Base Excess VBG Potassium Sodium Chloride Glucose Lactate Potassium Carbon Dioxide Anion Gap BUN Creatinine Est GFR ( Amer) Est GFR (Non-Af Amer) POC Glucose (mg/dL) Random Glucose Hemoglobin A1c Calcium Phosphorus Magnesium Total Bilirubin AST ALT Alkaline Phosphatase Troponin I C-Reactive Protein 267.30 H NT-Pro-B Natriuret Pep Total Protein Albumin Globulin Albumin/Globulin Ratio Triglycerides Cholesterol LDL Cholesterol Direct HDL Cholesterol Procalcitonin 25.55 H TSH 3rd Generation Venous Blood Potassium Urine Color Urine Clarity Urine pH Ur Specific Kendall Urine Protein Urine Glucose (UA) Urine Ketones Urine Blood Urine Nitrate Urine Bilirubin Urine Urobilinogen Ur Leukocyte Esterase Urine WBC (Auto) Urine RBC (Auto) Amorphous Sediment Urine Bacteria Urine Osmolality 383 Ur Random Sodium Ur Random Potassium Influenza Typ A,B (EIA) Ur L.pneumophila Ag Mycoplasma pneumon IgM 09/12/18 09/12/18 09/12/18 04:01 04:08 04:08 WBC 20.9 H RBC 3.79 L Hgb 10.5 L Hct 32.0 L MCV 84.4 MCH 27.7 MCHC 32.8 L RDW 14.0 Plt Count 309 MPV 7.7 Neut % (Auto) 91.0 H Lymph % (Auto) 4.6 L Smyth % (Auto) 3.1 Eos % (Auto) 0.1 Baso % (Auto) 1.2 Neut # (Auto) 19.0 H Lymph # (Auto) 1.0 Smyth # (Auto) 0.7 Eos # (Auto) 0.0 Baso # (Auto) 0.3 H Neutrophils % (Manual) 91 H Band Neutrophils % 1 Lymphocytes % (Manual) 3 L Monocytes % (Manual) 4 Basophils % (Manual) 1 Platelet Estimate Normal RBC Morphology ESR PT INR APTT pO2 VBG pH VBG pCO2 VBG HCO3 VBG Total CO2 VBG O2 Sat (Calc) VBG Base Excess VBG Potassium Sodium 131 L Chloride 100 Glucose Lactate Potassium 3.6 Carbon Dioxide 17 L Anion Gap 17 BUN 72 H Creatinine 2.8 H Est GFR ( Amer) 27 Est GFR (Non-Af Amer) 22 POC Glucose (mg/dL) Random Glucose 158 H Hemoglobin A1c Calcium 8.5 L Phosphorus Magnesium Total Bilirubin 1.4 H AST 118 H ALT 61 Alkaline Phosphatase 157 H Troponin I C-Reactive Protein NT-Pro-B Natriuret Pep Total Protein 7.2 Albumin 3.4 L Globulin 3.7 Albumin/Globulin Ratio 0.9 L Triglycerides 151 H D Cholesterol 105 LDL Cholesterol Direct 34 HDL Cholesterol 14 L Procalcitonin TSH 3rd Generation 1.09 Venous Blood Potassium Urine Color Urine Clarity Urine pH Ur Specific Kendall Urine Protein Urine Glucose (UA) Urine Ketones Urine Blood Urine Nitrate Urine Bilirubin Urine Urobilinogen Ur Leukocyte Esterase Urine WBC (Auto) Urine RBC (Auto) Amorphous Sediment Urine Bacteria Urine Osmolality Ur Random Sodium Ur Random Potassium Influenza Typ A,B (EIA) Ur L.pneumophila Ag Negative Mycoplasma pneumon IgM 09/12/18 09/12/18 09/12/18 04:08 08:00 11:55 WBC RBC Hgb Hct MCV MCH MCHC RDW Plt Count MPV Neut % (Auto) Lymph % (Auto) Smyth % (Auto) Eos % (Auto) Baso % (Auto) Neut # (Auto) Lymph # (Auto) Smyth # (Auto) Eos # (Auto) Baso # (Auto) Neutrophils % (Manual) Band Neutrophils % Lymphocytes % (Manual) Monocytes % (Manual) Basophils % (Manual) Platelet Estimate RBC Morphology ESR PT INR APTT pO2 VBG pH VBG pCO2 VBG HCO3 VBG Total CO2 VBG O2 Sat (Calc) VBG Base Excess VBG Potassium Sodium Chloride Glucose Lactate Potassium Carbon Dioxide Anion Gap BUN Creatinine Est GFR ( Amer) Est GFR (Non-Af Amer) POC Glucose (mg/dL) 144 H 157 H Random Glucose Hemoglobin A1c 6.0 Calcium Phosphorus Magnesium Total Bilirubin AST ALT Alkaline Phosphatase Troponin I C-Reactive Protein NT-Pro-B Natriuret Pep Total Protein Albumin Globulin Albumin/Globulin Ratio Triglycerides Cholesterol LDL Cholesterol Direct HDL Cholesterol Procalcitonin TSH 3rd Generation Venous Blood Potassium Urine Color Urine Clarity Urine pH Ur Specific Kendall Urine Protein Urine Glucose (UA) Urine Ketones Urine Blood Urine Nitrate Urine Bilirubin Urine Urobilinogen Ur Leukocyte Esterase Urine WBC (Auto) Urine RBC (Auto) Amorphous Sediment Urine Bacteria Urine Osmolality Ur Random Sodium Ur Random Potassium Influenza Typ A,B (EIA) Ur L.pneumophila Ag Mycoplasma pneumon IgM 09/12/18 16:36 WBC RBC Hgb Hct MCV MCH MCHC RDW Plt Count MPV Neut % (Auto) Lymph % (Auto) Smyth % (Auto) Eos % (Auto) Baso % (Auto) Neut # (Auto) Lymph # (Auto) Smyth # (Auto) Eos # (Auto) Baso # (Auto) Neutrophils % (Manual) Band Neutrophils % Lymphocytes % (Manual) Monocytes % (Manual) Basophils % (Manual) Platelet Estimate RBC Morphology ESR PT INR APTT pO2 VBG pH VBG pCO2 VBG HCO3 VBG Total CO2 VBG O2 Sat (Calc) VBG Base Excess VBG Potassium Sodium Chloride Glucose Lactate Potassium Carbon Dioxide Anion Gap BUN Creatinine Est GFR ( Amer) Est GFR (Non-Af Amer) POC Glucose (mg/dL) 166 H Random Glucose Hemoglobin A1c Calcium Phosphorus Magnesium Total Bilirubin AST ALT Alkaline Phosphatase Troponin I C-Reactive Protein NT-Pro-B Natriuret Pep Total Protein Albumin Globulin Albumin/Globulin Ratio Triglycerides Cholesterol LDL Cholesterol Direct HDL Cholesterol Procalcitonin TSH 3rd Generation Venous Blood Potassium Urine Color Urine Clarity Urine pH Ur Specific Kendall Urine Protein Urine Glucose (UA) Urine Ketones Urine Blood Urine Nitrate Urine Bilirubin Urine Urobilinogen Ur Leukocyte Esterase Urine WBC (Auto) Urine RBC (Auto) Amorphous Sediment Urine Bacteria Urine Osmolality Ur Random Sodium Ur Random Potassium Influenza Typ A,B (EIA) Ur L.pneumophila Ag Mycoplasma pneumon IgM - Impressions Impression: CXR: Multifocal pneumonia in left lung, worse in lower lobes, small left pleural effusion. CT chest - L upper and L lower lobe infiltrates, trace left pleural effusion, centrilolobular pulmonary emphysema. Assessment & Plan (1) Acute on chronic renal insufficiency Status: Acute (2) Pneumonia Status: Acute (3) CKD (chronic kidney disease) stage 4, GFR 15-29 ml/min Status: Chronic (4) Diabetes mellitus Status: Chronic (5) Hyperlipidemia Status: Chronic (6) Hypertension Status: Chronic - Assessment and Plan (Free Text) Assessment: 73 yo male with complex hx is admitted with severe pneumonia, sepsis, ORALIA r/o aspiration pneumonia hx of TB exposure on INH as per Hx await cultures pulm eval IV antibiotics
[2018-09-12] MEDS ORDERED: Vancomycin 1 gm/NS 200 ml 1 GM/200 ML BAG IVPB STA (17:58)
[2018-09-12] MEDS: Azithromycin 500mg/250ML NS 500 MG/250 ML BAG IVPB SCH (18:43)
--- NOTE | 2018-09-12 19:08 | CP.PCM.CON ---
History of Present Illness - History of Present Illness History of Present Illness: pt is seen and examined, full consult is dictated # [id number] 1. Ekaterina on ckd , most likley sec to atn sec to sepsis/pneumonia, can't r/o dehydration 2. left lung pneumonia 3. Emphysema 4. seizers 5. htn 6. TIA c/w iv abx, c/w iv f, check urine lytes, osm, renal function is improving slowly Past Patient History - Infectious Disease Hx of Infectious Diseases: None - Past Medical History & Family History Past Medical History?: Yes - Past Social History Smoking Status: Former Smoker - CARDIAC Hx Cardiac Disorders: Yes Hx Hypercholesterolemia: Yes Hx Hypertension: Yes - PULMONARY Hx Respiratory Disorders: No - NEUROLOGICAL Hx Seizures: Yes Hx Transient Ischemic Attacks (TIA): Yes [place] [facility] [place] - HEENT Hx HEENT Problems: No - RENAL Hx Chronic Kidney Disease: No - ENDOCRINE/METABOLIC Hx Endocrine Disorders: Yes Hx Diabetes Mellitus Type 1: Yes - HEMATOLOGICAL/ONCOLOGICAL Hx Blood Disorders: No - INTEGUMENTARY Hx Dermatological Problems: No - MUSCULOSKELETAL/RHEUMATOLOGICAL Hx Musculoskeletal Disorders: Yes Hx Falls: Yes Hx Gout: Yes - GASTROINTESTINAL Hx Gastrointestinal Disorders: No - GENITOURINARY/GYNECOLOGICAL Hx Genitourinary Disorders: No - PSYCHIATRIC Hx Psychophysiologic Disorder: No Hx Substance Use: No - SURGICAL HISTORY Hx Surgeries: Yes Other/Comment: " vein surgery " for circulation - ANESTHESIA Hx Anesthesia: Yes Hx Anesthesia Reactions: No Has any member of the family had a problem w/ anesthesia?: No Meds Allergies/Adverse Reactions: Allergies Allergy/AdvReac Type Severity Reaction Status Date / Time lisinopril Allergy Verified 09/11/18 20:23 - Medications Medications: Current Medications Albuterol/Ipratropium (Duoneb 3 Mg/0.5 Mg (3 Ml) Ud) 3 ml INH RQ6 COUNTS INCLUDE 234 BEDS AT THE [facility] Last Admin: 09/12/18 10:23 Dose: 3 ml Aspirin (Aspirin) 325 mg PO DAILY COUNTS INCLUDE 234 BEDS AT THE [facility] Last Admin: 09/12/18 10:02 Dose: 325 mg Carvedilol (Coreg) 12.5 mg PO Q12 COUNTS INCLUDE 234 BEDS AT THE [facility] Last Admin: 09/12/18 10:02 Dose: 12.5 mg Heparin Sodium (Porcine) (Heparin) 5,000 units SC Q8 COUNTS INCLUDE 234 BEDS AT THE [facility] Dextrose/Sodium Chloride (Dextrose 5%/0.9% Ns 1000 Ml) 1,000 mls @ 70 mls/hr IV .[id number] AMMY Last Admin: 09/12/18 18:49 Dose: Not Given Piperacillin Sod/Tazobactam Sod (Zosyn 2.25 Gm Iv Premix) 2.25 gm in 50 mls @ 100 mls/hr IVPB Q6H AMMY; Protocol Last Admin: 09/12/18 17:40 Dose: 100 mls/hr Azithromycin (Zithromax 500mg In Ns Addvantage) 500 mg in 250 mls @ 167 mls/hr IVPB Q24H AMMY; Protocol Last Admin: 09/12/18 18:43 Dose: 167 mls/hr Vancomycin/Sodium Chloride (Vancomycin 1 Gm/Ns 200 Ml) 1 gm in 200 mls @ 133 mls/hr IVPB STAT STA; Protocol Stop: 09/12/18 19:28 Last Admin: 09/12/18 18:39 Dose: 133 mls/hr Insulin Aspart (Novolog) 0 unit SC ACHS AMMY; Protocol Last Admin: 09/12/18 17:30 Dose: Not Given Rosuvastatin Calcium (Crestor) 20 mg PO HS AMMY Results - Vital Signs Recent Vital Signs: Last Vital Signs Temp 98.1 F 09/12/18 16:00 Pulse 67 09/12/18 16:00 Resp 20 09/12/18 16:00 BP 144/71 09/12/18 16:00 Pulse Ox 96 09/12/18 16:00 - Labs Result Diagrams: 09/12/18 04:08 09/12/18 04:08 Labs: Laboratory Results - last 24 hr 09/11/18 09/11/18 09/11/18 20:21 20:30 20:41 WBC 21.7 H D RBC 4.17 L Hgb 11.6 L Hct 35.7 MCV 85.4 MCH 27.8 MCHC 32.5 L RDW 14.1 Plt Count 369 D MPV 8.1 Neut % (Auto) 86.4 H Lymph % (Auto) 5.9 L [place] % (Auto) 7.2 Eos % (Auto) 0.1 Baso % (Auto) 0.4 Neut # (Auto) 18.8 H Lymph # (Auto) 1.3 [place] # (Auto) 1.6 H Eos # (Auto) 0.0 Baso # (Auto) 0.1 Neutrophils % (Manual) 91 H Band Neutrophils % Lymphocytes % (Manual) 3 L Monocytes % (Manual) 6 Basophils % (Manual) Platelet Estimate Normal RBC Morphology Normal ESR PT INR APTT pO2 43 VBG pH 7.32 VBG pCO2 38 L VBG HCO3 19.6 VBG Total CO2 20.8 L VBG O2 Sat (Calc) 76.1 H VBG Base Excess -6.0 L VBG Potassium 5.5 H Sodium 133.0 Chloride 99.0 Glucose 149 H Lactate 2.2 H Potassium Carbon Dioxide Anion Gap BUN Creatinine Est GFR ( Amer) Est GFR (Non-Af Amer) POC Glucose (mg/dL) 135 H Random Glucose Hemoglobin A1c Calcium Phosphorus Magnesium Total Bilirubin AST ALT Alkaline Phosphatase Troponin I C-Reactive Protein NT-Pro-B Natriuret Pep Total Protein Albumin Globulin Albumin/Globulin Ratio Triglycerides Cholesterol LDL Cholesterol Direct HDL Cholesterol Procalcitonin TSH 3rd Generation Venous Blood Potassium 5.5 H Urine Color Urine Clarity Urine pH Ur Specific [place] Urine Protein Urine Glucose (UA) Urine Ketones Urine Blood Urine Nitrate Urine Bilirubin Urine Urobilinogen Ur Leukocyte Esterase Urine WBC (Auto) Urine RBC (Auto) Amorphous Sediment Urine Bacteria Urine Osmolality Ur Random Sodium Ur Random Potassium Influenza Typ A,B (EIA) Ur L.pneumophila Ag Mycoplasma pneumon IgM 09/11/18 09/11/18 09/11/18 20:41 20:41 21:50 WBC RBC Hgb Hct MCV MCH MCHC RDW Plt Count MPV Neut % (Auto) Lymph % (Auto) [place] % (Auto) Eos % (Auto) Baso % (Auto) Neut # (Auto) Lymph # (Auto) [place] # (Auto) Eos # (Auto) Baso # (Auto) Neutrophils % (Manual) Band Neutrophils % Lymphocytes % (Manual) Monocytes % (Manual) Basophils % (Manual) Platelet Estimate RBC Morphology ESR PT 13.6 H INR 1.2 APTT 33 pO2 VBG pH VBG pCO2 VBG HCO3 VBG Total CO2 VBG O2 Sat (Calc) VBG Base Excess VBG Potassium Sodium 133 Chloride 100 Glucose Lactate Potassium 4.3 Carbon Dioxide 18 L Anion Gap 20 BUN 72 H Creatinine 3.3 H Est GFR ( Amer) 22 Est GFR (Non-Af Amer) 18 POC Glucose (mg/dL) Random Glucose 152 H D Hemoglobin A1c Calcium 9.4 Phosphorus 5.6 H Magnesium 2.3 Total Bilirubin 1.4 H AST 134 H ALT 55 Alkaline Phosphatase 185 H Troponin I 0.0340 C-Reactive Protein NT-Pro-B Natriuret Pep 871 Total Protein 8.8 H Albumin 4.1 Globulin 4.7 H Albumin/Globulin Ratio 0.9 L Triglycerides Cholesterol LDL Cholesterol Direct HDL Cholesterol Procalcitonin TSH 3rd Generation Venous Blood Potassium Urine Color Urine Clarity Urine pH Ur Specific [place] Urine Protein Urine Glucose (UA) Urine Ketones Urine Blood Urine Nitrate Urine Bilirubin Urine Urobilinogen Ur Leukocyte Esterase Urine WBC (Auto) Urine RBC (Auto) Amorphous Sediment Urine Bacteria Urine Osmolality Ur Random Sodium Ur Random Potassium Influenza Typ A,B (EIA) Ur L.pneumophila Ag Mycoplasma pneumon IgM 09/11/18 09/11/18 09/12/18 22:31 22:42 00:20 WBC RBC Hgb Hct MCV MCH MCHC RDW Plt Count MPV Neut % (Auto) Lymph % (Auto) [place] % (Auto) Eos % (Auto) Baso % (Auto) Neut # (Auto) Lymph # (Auto) [place] # (Auto) Eos # (Auto) Baso # (Auto) Neutrophils % (Manual) Band Neutrophils % Lymphocytes % (Manual) Monocytes % (Manual) Basophils % (Manual) Platelet Estimate RBC Morphology ESR PT INR APTT pO2 52 VBG pH 7.38 VBG pCO2 31 L VBG HCO3 20.2 VBG Total CO2 19.3 L VBG O2 Sat (Calc) 90.9 H VBG Base Excess -5.7 L VBG Potassium 3.2 L Sodium 132.0 Chloride 103.0 Glucose 142 H Lactate 1.2 Potassium Carbon Dioxide Anion Gap BUN Creatinine Est GFR ( Amer) Est GFR (Non-Af Amer) POC Glucose (mg/dL) Random Glucose Hemoglobin A1c Calcium Phosphorus Magnesium Total Bilirubin AST ALT Alkaline Phosphatase Troponin I C-Reactive Protein NT-Pro-B Natriuret Pep Total Protein Albumin Globulin Albumin/Globulin Ratio Triglycerides Cholesterol LDL Cholesterol Direct HDL Cholesterol Procalcitonin TSH 3rd Generation Venous Blood Potassium 3.2 L Urine Color Yellow Urine Clarity Hazy Urine pH 5.0 Ur Specific [place] 1.012 Urine Protein 1+ H Urine Glucose (UA) Normal Urine Ketones Negative Urine Blood 2+ H Urine Nitrate Negative Urine Bilirubin Negative Urine Urobilinogen 4.0 Ur Leukocyte Esterase Neg Urine WBC (Auto) < 1 Urine RBC (Auto) 22 H Amorphous Sediment Few H Urine Bacteria Rare Urine Osmolality Ur Random Sodium Ur Random Potassium Influenza Typ A,B (EIA) Negative for flu a/b Ur L.pneumophila Ag Mycoplasma pneumon IgM 09/12/18 09/12/18 09/12/18 01:11 02:00 02:00 WBC RBC Hgb Hct MCV MCH MCHC RDW Plt Count MPV Neut % (Auto) Lymph % (Auto) [place] % (Auto) Eos % (Auto) Baso % (Auto) Neut # (Auto) Lymph # (Auto) [place] # (Auto) Eos # (Auto) Baso # (Auto) Neutrophils % (Manual) Band Neutrophils % Lymphocytes % (Manual) Monocytes % (Manual) Basophils % (Manual) Platelet Estimate RBC Morphology ESR 120 H PT INR APTT pO2 VBG pH VBG pCO2 VBG HCO3 VBG Total CO2 VBG O2 Sat (Calc) VBG Base Excess VBG Potassium Sodium Chloride Glucose Lactate Potassium Carbon Dioxide Anion Gap BUN Creatinine Est GFR ( Amer) Est GFR (Non-Af Amer) POC Glucose (mg/dL) Random Glucose Hemoglobin A1c Calcium Phosphorus Magnesium Total Bilirubin AST ALT Alkaline Phosphatase Troponin I C-Reactive Protein NT-Pro-B Natriuret Pep Total Protein Albumin Globulin Albumin/Globulin Ratio Triglycerides Cholesterol LDL Cholesterol Direct HDL Cholesterol Procalcitonin TSH 3rd Generation Venous Blood Potassium Urine Color Urine Clarity Urine pH Ur Specific [place] Urine Protein Urine Glucose (UA) Urine Ketones Urine Blood Urine Nitrate Urine Bilirubin Urine Urobilinogen Ur Leukocyte Esterase Urine WBC (Auto) Urine RBC (Auto) Amorphous Sediment Urine Bacteria Urine Osmolality Ur Random Sodium 19 Ur Random Potassium 42.3 Influenza Typ A,B (EIA) Ur L.pneumophila Ag Mycoplasma pneumon IgM Negative 09/12/18 09/12/18 09/12/18 02:00 02:00 02:00 WBC RBC Hgb Hct MCV MCH MCHC RDW Plt Count MPV Neut % (Auto) Lymph % (Auto) [place] % (Auto) Eos % (Auto) Baso % (Auto) Neut # (Auto) Lymph # (Auto) [place] # (Auto) Eos # (Auto) Baso # (Auto) Neutrophils % (Manual) Band Neutrophils % Lymphocytes % (Manual) Monocytes % (Manual) Basophils % (Manual) Platelet Estimate RBC Morphology ESR PT INR APTT pO2 VBG pH VBG pCO2 VBG HCO3 VBG Total CO2 VBG O2 Sat (Calc) VBG Base Excess VBG Potassium Sodium Chloride Glucose Lactate Potassium Carbon Dioxide Anion Gap BUN Creatinine Est GFR ( Amer) Est GFR (Non-Af Amer) POC Glucose (mg/dL) Random Glucose Hemoglobin A1c Calcium Phosphorus Magnesium Total Bilirubin AST ALT Alkaline Phosphatase Troponin I C-Reactive Protein 267.30 H NT-Pro-B Natriuret Pep Total Protein Albumin Globulin Albumin/Globulin Ratio Triglycerides Cholesterol LDL Cholesterol Direct HDL Cholesterol Procalcitonin 25.55 H TSH 3rd Generation Venous Blood Potassium Urine Color Urine Clarity Urine pH Ur Specific [place] Urine Protein Urine Glucose (UA) Urine Ketones Urine Blood Urine Nitrate Urine Bilirubin Urine Urobilinogen Ur Leukocyte Esterase Urine WBC (Auto) Urine RBC (Auto) Amorphous Sediment Urine Bacteria Urine Osmolality 383 Ur Random Sodium Ur Random Potassium Influenza Typ A,B (EIA) Ur L.pneumophila Ag Mycoplasma pneumon IgM 09/12/18 09/12/18 09/12/18 04:01 04:08 04:08 WBC 20.9 H RBC 3.79 L Hgb 10.5 L Hct 32.0 L MCV 84.4 MCH 27.7 MCHC 32.8 L RDW 14.0 Plt Count 309 MPV 7.7 Neut % (Auto) 91.0 H Lymph % (Auto) 4.6 L [place] % (Auto) 3.1 Eos % (Auto) 0.1 Baso % (Auto) 1.2 Neut # (Auto) 19.0 H Lymph # (Auto) 1.0 [place] # (Auto) 0.7 Eos # (Auto) 0.0 Baso # (Auto) 0.3 H Neutrophils % (Manual) 91 H Band Neutrophils % 1 Lymphocytes % (Manual) 3 L Monocytes % (Manual) 4 Basophils % (Manual) 1 Platelet Estimate Normal RBC Morphology ESR PT INR APTT pO2 VBG pH VBG pCO2 VBG HCO3 VBG Total CO2 VBG O2 Sat (Calc) VBG Base Excess VBG Potassium Sodium 131 L Chloride 100 Glucose Lactate Potassium 3.6 Carbon Dioxide 17 L Anion Gap 17 BUN 72 H Creatinine 2.8 H Est GFR ( Amer) 27 Est GFR (Non-Af Amer) 22 POC Glucose (mg/dL) Random Glucose 158 H Hemoglobin A1c Calcium 8.5 L Phosphorus Magnesium Total Bilirubin 1.4 H AST 118 H ALT 61 Alkaline Phosphatase 157 H Troponin I C-Reactive Protein NT-Pro-B Natriuret Pep Total Protein 7.2 Albumin 3.4 L Globulin 3.7 Albumin/Globulin Ratio 0.9 L Triglycerides 151 H D Cholesterol 105 LDL Cholesterol Direct 34 HDL Cholesterol 14 L Procalcitonin TSH 3rd Generation 1.09 Venous Blood Potassium Urine Color Urine Clarity Urine pH Ur Specific [place] Urine Protein Urine Glucose (UA) Urine Ketones Urine Blood Urine Nitrate Urine Bilirubin Urine Urobilinogen Ur Leukocyte Esterase Urine WBC (Auto) Urine RBC (Auto) Amorphous Sediment Urine Bacteria Urine Osmolality Ur Random Sodium Ur Random Potassium Influenza Typ A,B (EIA) Ur L.pneumophila Ag Negative Mycoplasma pneumon IgM 09/12/18 09/12/18 09/12/18 04:08 08:00 11:55 WBC RBC Hgb Hct MCV MCH MCHC RDW Plt Count MPV Neut % (Auto) Lymph % (Auto) [place] % (Auto) Eos % (Auto) Baso % (Auto) Neut # (Auto) Lymph # (Auto) [place] # (Auto) Eos # (Auto) Baso # (Auto) Neutrophils % (Manual) Band Neutrophils % Lymphocytes % (Manual) Monocytes % (Manual) Basophils % (Manual) Platelet Estimate RBC Morphology ESR PT INR APTT pO2 VBG pH VBG pCO2 VBG HCO3 VBG Total CO2 VBG O2 Sat (Calc) VBG Base Excess VBG Potassium Sodium Chloride Glucose Lactate Potassium Carbon Dioxide Anion Gap BUN Creatinine Est GFR ( Amer) Est GFR (Non-Af Amer) POC Glucose (mg/dL) 144 H 157 H Random Glucose Hemoglobin A1c 6.0 Calcium Phosphorus Magnesium Total Bilirubin AST ALT Alkaline Phosphatase Troponin I C-Reactive Protein NT-Pro-B Natriuret Pep Total Protein Albumin Globulin Albumin/Globulin Ratio Triglycerides Cholesterol LDL Cholesterol Direct HDL Cholesterol Procalcitonin TSH 3rd Generation Venous Blood Potassium Urine Color Urine Clarity Urine pH Ur Specific [place] Urine Protein Urine Glucose (UA) Urine Ketones Urine Blood Urine Nitrate Urine Bilirubin Urine Urobilinogen Ur Leukocyte Esterase Urine WBC (Auto) Urine RBC (Auto) Amorphous Sediment Urine Bacteria Urine Osmolality Ur Random Sodium Ur Random Potassium Influenza Typ A,B (EIA) Ur L.pneumophila Ag Mycoplasma pneumon IgM 09/12/18 16:36 WBC RBC Hgb Hct MCV MCH MCHC RDW Plt Count MPV Neut % (Auto) Lymph % (Auto) [place] % (Auto) Eos % (Auto) Baso % (Auto) Neut # (Auto) Lymph # (Auto) [place] # (Auto) Eos # (Auto) Baso # (Auto) Neutrophils % (Manual) Band Neutrophils % Lymphocytes % (Manual) Monocytes % (Manual) Basophils % (Manual) Platelet Estimate RBC Morphology ESR PT INR APTT pO2 VBG pH VBG pCO2 VBG HCO3 VBG Total CO2 VBG O2 Sat (Calc) VBG Base Excess VBG Potassium Sodium Chloride Glucose Lactate Potassium Carbon Dioxide Anion Gap BUN Creatinine Est GFR ( Amer) Est GFR (Non-Af Amer) POC Glucose (mg/dL) 166 H Random Glucose Hemoglobin A1c Calcium Phosphorus Magnesium Total Bilirubin AST ALT Alkaline Phosphatase Troponin I C-Reactive Protein NT-Pro-B Natriuret Pep Total Protein Albumin Globulin Albumin/Globulin Ratio Triglycerides Cholesterol LDL Cholesterol Direct HDL Cholesterol Procalcitonin TSH 3rd Generation Venous Blood Potassium Urine Color Urine Clarity Urine pH Ur Specific [place] Urine Protein Urine Glucose (UA) Urine Ketones Urine Blood Urine Nitrate Urine Bilirubin Urine Urobilinogen Ur Leukocyte Esterase Urine WBC (Auto) Urine RBC (Auto) Amorphous Sediment Urine Bacteria Urine Osmolality Ur Random Sodium Ur Random Potassium Influenza Typ A,B (EIA) Ur L.pneumophila Ag Mycoplasma pneumon IgM
[2018-09-13] MEDS: Albuterol-Ipratrop 3 mg / 0.5 (3 ml) UD INH SCH ×4 (02:15→19:10)
[2018-09-13] MEDS: Piperacill/Tazo 2.25gm in Dex 2.25 GM/50 ML BAG IVPB SCH ×4 (03:27→21:52)
[2018-09-13] MEDS: Dextrose 5%/0.9% NS 1,000 ML IV SCH ×2 (05:24→17:30)
[2018-09-13 06:36] LABS: BASO % 0.1 % (0.0-2.0); EOS # 0.1 K/uL (0.0-0.7); EOS % 0.9 % (0.0-4.0); HEMOGLOBIN 9.5 g/dL (12.0-18.0); LYMPH # 1.3 K/uL (1.0-4.3); LYMPH % 8.7 % (20.0-40.0); MEAN CELL VOLUME 85.5 fL (80.0-94.0); MEAN CORPUSCULAR HEMOGLOBIN 27.6 pg (27.0-31.0); MEAN CORPUSCULAR HGB CONC 32.3 g/dL (33.0-37.0); MEAN PLATELET VOLUME 8.1 fL (7.2-11.7); MONO # 1.3 K/uL (0.0-0.8); NEUT # 11.8 K/uL (1.8-7.0); NEUT % 81.3 % (50.0-75.0); PLATELET COUNT 357 K/uL (130-400); RBC 3.44 Mil/uL (4.40-5.90); RED CELL DISTRIBUTION WIDTH 14.4 % (11.5-14.5); WHITE BLOOD COUNT 14.6 K/uL (4.8-10.8)
--- NOTE | 2018-09-13 06:48 | CON ---
DATE: 09/12/2018 LOCATION: The patient is located in room 651, bed A. REQUESTED BY: Judie Ramirez MD REASON FOR CONSULTATION: Acute renal failure, chronic kidney disease, for further evaluation. HISTORY OF PRESENT ILLNESS: Mr. Wells is a 73-year-old elderly -Burkin[place] male with a past medical history significant for hypertension, chronic kidney disease, TIA, seizures, hyperlipidemia, status post surgery to the right leg, who was admitted with chief complaints of shortness of breath, weakness and breathing heavy as per the patient's family, and the patient was brought to the hospital for further evaluation. The patient is a poor historian. Chart reviewed and history obtained from the review of the chart. The patient also denies any fever, chills, nausea, vomiting, diarrhea, chest pain, palpitation, headache, dizziness, any dysuria or frequency, any swelling of the legs. PAST MEDICAL HISTORY: Significant for hypertension, hyperlipidemia, chronic kidney disease, seizures, and TIA. PAST SURGICAL HISTORY: Status post right leg surgery, questionable bypass. ALLERGIES: ALLERGIC TO LISINOPRIL. SOCIAL HISTORY: The patient is ex-smoker, quit long time ago. Social alcohol use. No drug abuse. PERSONAL HISTORY: He is and , and he has four children. Both parents . FAMILY HISTORY: Not significant. CURRENT MEDICATIONS: Include aspirin 325 mg p.o. daily, Coreg 12.5 mg every 12 hours, Crestor 20 mg at bedtime, IV fluids D5 normal saline at 70 mL/hour, DuoNeb inhaler, subcu heparin 5000 every 8 hours, NovoLog insulin, Zithromax 500 mg daily, and Zosyn 2.25 g IV every 6 hours. His home medications include hydralazine, rivastigmine, phenytoin, Crestor, nifedipine, clonidine, vitamin D3, atorvastatin, aspirin, allopurinol, isoniazid, chlorthalidone, clonidine, B-complex tablet, and Coreg. PHYSICAL EXAMINATION: VITAL SIGNS: As follows: Blood pressure 144/71, pulse 67, respirations 20, temperature 98.1, saturation 96%. Height 5 feet 10 inches, weight is 180 pounds. GENERAL: Mr. Wells is a 73-year-old elderly male, moderately built, moderately nourished, not in distress. HEENT: Pupils normal, reactive to light and accommodation. Conjunctiva pink. Sclerae anicteric. Tongue is moist. Trachea is midline. LUNGS: Symmetric on both sides. Bilateral breath sounds present. No crackles. CARDIOVASCULAR SYSTEM: [place] at the fifth intercostal space, midclavicular line. S1 and S2 audible. No murmur or gallop. ABDOMEN: Normal in appearance. Soft, tympanitic. No guarding. No rigidity. No hepatosplenomegaly. CENTRAL NERVOUS SYSTEM: The patient is alert, awake, oriented x2. Cranial nerves II-XII grossly intact. Sensory and motor system is within normal limits. EXTREMITIES: No cyanosis, no clubbing, no edema. The patient has a scar from the groin up to the middle of the leg. LABORATORY DATA: Include as follows: CT scan of the chest, left upper lobe and left lower lobe infiltrates, trace left pleural effusion, centrilobular pulmonary emphysema, likely pneumonia. The preliminary findings of this examination were reported by [facility] at 12:35 a.m. Chest x-ray as of 09/11/2018, multifocal pneumonia in the left lung worse in the lower lobes, small left pleural effusion. Other reports as of 09/12/2018, WBC 20.9, hemoglobin 10.5, hematocrit is 32, platelets 309. ABG: pH of 7.38, pO2 of 52, and pCO2 of 31, bicarb 20, and saturation 90.9. Sodium 131, potassium 3.6, chloride 100, CO2 of 17, BUN 72, creatinine 2.8, glucose 158, hemoglobin A1c 6, calcium 8.5. Total bilirubin 1.4, AST 118, ALT 61, alkaline phosphatase 157. C-reactive protein 267, total protein 7.2, albumin 3.4, cholesterol 105, triglycerides 151, LDL is 34, HDL is 14, procalcitonin is 25.5, and TSH is 1.09. Urine for Legionella antigen is negative. Mycoplasma antibody is negative. As of 09/11/2018, BMP: Sodium 133, potassium 4.3, chloride 100, CO2 of 18, BUN 72, creatinine 3.3, glucose 152, calcium 9.4, phosphorus 5.6. WBC 21.7, hemoglobin 11.6, hematocrit 35.7, platelets 369, ESR is 120. ASSESSMENT: In summary, Mr. Wells is a 73-year-old elderly -[place]kin[place] male with a history of hypertension, transient ischemic attack, chronic kidney disease, seizures, ex-smoker, emphysema, who was admitted with shortness of breath, weakness and found to have extensive pneumonia in the left lung with WBC elevated and increased BUN and creatinine. 1. Acute renal failure on chronic kidney disease most likely secondary to acute tubular necrosis secondary to sepsis and pneumonia, cannot rule out intravascular depletion secondary to decreased p.o. intake. 2. Pneumonia. 3. Seizures. PLAN: Continue antibiotics. Urinalysis consistent with 1+ protein, 2+ blood, wbc less than 1, rbc 22. We will also check hepatitis B and C serology if not done recently and [place], C3, C4, PTH intact level, and ultrasound of the kidneys if not done. We will follow with you. Thank you for allowing me to participate in your patient's care. Wai Ramirez MD [facility]
[2018-09-13 06:57] LABS: COMPLEMENT C4 23.8 mg/dL (14.0-44.0)
[2018-09-13 07:21] LABS: HEPATITIS B SURFACE AG Negative (NEGATIVE)
[2018-09-13 07:26] LABS: HEPATITIS A IGM NEGATIVE (NEGATIVE); HEPATITIS B CORE AB NEGATIVE (NEGATIVE)
[2018-09-13 07:38] LABS: HEPATITIS C ANTIBODY NEGATIVE (NEGATIVE)
[2018-09-13 07:44] LABS: ALB/GLOB RATIO 0.9 (1.0-2.1); ALBUMIN 3.1 g/dL (3.5-5.0); CALCIUM 8.5 mg/dl (8.6-10.4)
[2018-09-13] MEDS: (Novolog) Insulin Aspart, Recombinant 100 u/ml 10 ml vial SC SCH ×4 (08:41→22:22)
[2018-09-13 08:49] LABS: ANISOCYTOSIS SLIGHT; BANDS 1 % (0-2); BURR CELLS SLIGHT; LYMPHOCYTE 7 % (20-40); MONOCYTE 8 % (0-10); NEUTROPHIL 83 % (50-75); PLATELET CLUMPS PRESENT; PLATELET ESTIMATE NORMAL (NORMAL); POIKILOCYTOSIS SLIGHT; REACTIVE LYMPHOCYTES 1 % (0-0); TOTAL CELLS COUNTED 100
[2018-09-13 08:50] LABS: HYPOCHROMIC SLIGHT; LARGE PLATELETS PRESENT; POLYCHROMIC SLIGHT; TOXIC GRANULATION PRESENT
--- NOTE | 2018-09-13 11:04 | CP.PCM.PN ---
Subjective - Date & Time of Evaluation Date of Evaluation: 09/13/18 Time of Evaluation: 11:04 - Subjective Subjective: Progress note dictated #[id number] Objective - Vital Signs/Intake and Output Vital Signs (last 24 hours): Temp Pulse Resp BP Pulse Ox 97.7 F 76 18 154/74 H 98 09/13/18 07:00 09/13/18 07:00 09/13/18 07:00 09/13/18 07:00 09/13/18 07:00 Intake and Output: 09/13/18 09/13/18 06:59 18:59 Intake Total 710 Output Total 400 Balance 310 - Medications Medications: Current Medications Albuterol/Ipratropium (Duoneb 3 Mg/0.5 Mg (3 Ml) Ud) 3 ml INH RQ6 AMMY Last Admin: 09/13/18 07:45 Dose: 3 ml Aspirin (Aspirin) 325 mg PO DAILY AMMY Last Admin: 09/12/18 10:02 Dose: 325 mg Carvedilol (Coreg) 12.5 mg PO Q12 AMMY Last Admin: 09/12/18 21:19 Dose: 12.5 mg Heparin Sodium (Porcine) (Heparin) 5,000 units SC Q8 AMMY Last Admin: 09/13/18 05:24 Dose: 5,000 units Dextrose/Sodium Chloride (Dextrose 5%/0.9% Ns 1000 Ml) 1,000 mls @ 70 mls/hr IV .[id number] AMMY Last Admin: 09/13/18 05:24 Dose: 70 mls/hr Piperacillin Sod/Tazobactam Sod (Zosyn 2.25 Gm Iv Premix) 2.25 gm in 50 mls @ 100 mls/hr IVPB Q6H AMMY; Protocol Last Admin: 09/13/18 03:27 Dose: 100 mls/hr Azithromycin (Zithromax 500mg In Ns Addvantage) 500 mg in 250 mls @ 167 mls/hr IVPB Q24H AMMY; Protocol Last Admin: 09/12/18 18:43 Dose: 167 mls/hr Insulin Aspart (Novolog) 0 unit SC ACHS AMMY; Protocol Last Admin: 09/13/18 08:41 Dose: Not Given Rosuvastatin Calcium (Crestor) 20 mg PO HS AMMY Last Admin: 09/12/18 21:19 Dose: 20 mg - Labs Labs: 09/13/18 06:29 09/13/18 06:29 PT 13.6 SECONDS (9.7-12.2) H 09/11/18 21:50 INR 1.2 09/11/18 21:50 APTT 33 SECONDS (21-34) 09/11/18 21:50
[2018-09-13] MEDS: Potassium Chloride 20 mEq ER Tab PO SCH ×2 (11:29→16:00)
--- NOTE | 2018-09-13 13:27 | US ---
Date of service: 09/13/2018 PROCEDURE: Ultrasound of the Kidneys HISTORY: ckd, for kidney size COMPARISON: None available. TECHNIQUE: Sonogram of the kidneys. FINDINGS: RIGHT KIDNEY: Measures: 10.2 x 4.2 x 5.2 cm. Trace perinephric fluid. Echogenic renal parenchyma. Prominent central echogenicity may reflect prominent sinus fat. Mid to upper pole renal cyst measures 1.6 x 1.5 x 1.3 cm. Mid to lower pole cyst measures 1.1 x 0.8 x 0.8 cm. No obstructing calculus or hydronephrosis identified. LEFT KIDNEY: Measures: 10.3 x 4.8 x 4.5 cm. Echogenic renal parenchyma. Prominent central echogenicity may reflect prominent sinus fat. No obstructing calculus or hydronephrosis identified. OTHER FINDINGS: None. IMPRESSION: Right renal cysts. Trace right perinephric fluid. Echogenic renal parenchyma may be seen in setting of medical renal disease. Prominent central echogenicity within both kidneys possibly related to prominent sinus fat. Correlate clinically. Follow-up may be considered.
--- NOTE | 2018-09-13 14:01 | CP.PCM.PN ---
Subjective - Date & Time of Evaluation Date of Evaluation: 09/13/18 Time of Evaluation: 14:01 - Subjective Subjective: pt is seen and examined, follow up consult is dictated #[id number] add vit b6 Objective - Vital Signs/Intake and Output Vital Signs (last 24 hours): Temp Pulse Resp BP Pulse Ox 97.7 F 76 18 165/72 H 98 09/13/18 07:00 09/13/18 07:00 09/13/18 07:00 09/13/18 11:25 09/13/18 07:00 Intake and Output: 09/13/18 09/13/18 06:59 18:59 Intake Total 710 Output Total 400 Balance 310 - Medications Medications: Current Medications Albuterol/Ipratropium (Duoneb 3 Mg/0.5 Mg (3 Ml) Ud) 3 ml INH RQ6 [facility] Last Admin: 09/13/18 13:50 Dose: 3 ml Aspirin (Aspirin) 325 mg PO DAILY [facility] Last Admin: 09/13/18 11:24 Dose: 325 mg Carvedilol (Coreg) 12.5 mg PO Q12 [facility] Last Admin: 09/13/18 11:25 Dose: 12.5 mg Heparin Sodium (Porcine) (Heparin) 5,000 units SC Q8 [facility] Last Admin: 09/13/18 05:24 Dose: 5,000 units Dextrose/Sodium Chloride (Dextrose 5%/0.9% Ns 1000 Ml) 1,000 mls @ 70 mls/hr IV .[id number] [facility] Last Admin: 09/13/18 05:24 Dose: 70 mls/hr Piperacillin Sod/Tazobactam Sod (Zosyn 2.25 Gm Iv Premix) 2.25 gm in 50 mls @ 100 mls/hr IVPB Q6H [facility]; Protocol Last Admin: 09/13/18 11:25 Dose: 100 mls/hr Azithromycin (Zithromax 500mg In Ns Addvantage) 500 mg in 250 mls @ 167 mls/hr IVPB Q24H [facility]; Protocol Last Admin: 09/12/18 18:43 Dose: 167 mls/hr Insulin Aspart (Novolog) 0 unit SC ACHS [facility]; Protocol Last Admin: 09/13/18 13:24 Dose: Not Given Potassium Chloride (K-Dur 20 Meq Er Tab) 40 meq PO Q4H [facility] Stop: 09/13/18 15:16 Last Admin: 09/13/18 11:29 Dose: 40 meq Rosuvastatin Calcium (Crestor) 20 mg PO HS [facility] Last Admin: 09/12/18 21:19 Dose: 20 mg - Labs Labs: 09/13/18 06:29 09/13/18 06:29 PT 13.6 SECONDS (9.7-12.2) H 09/11/18 21:50 INR 1.2 09/11/18 21:50 APTT 33 SECONDS (21-34) 09/11/18 21:50
--- NOTE | 2018-09-13 15:22 | CARD ---
APPROVED REPORT Date of service: 09/12/2018 EXAM: Two-dimensional and M-mode echocardiogram with Doppler and color Doppler. Other Information Quality : GoodRhythm : INDICATION LV Function: 2D DIMENSIONS IVSd1.1 (0.7-1.1cm)LVDd4.6 (3.9-5.9cm) PWd1.1 (0.7-1.1cm)LA Nyqngz35 (18-58mL) LVDs3.1 (2.5-4.0cm)FS (%) 33.2 % LVEF (%)61.9 (>50%)LVEF (Allison's)55.47 % M-Mode DIMENSIONS Left Atrium (MM)3.20 (2.5-4.0cm)IVSd0.75 (0.7-1.1cm) Aortic Root3.10 (2.2-3.7cm)LVDd4.99 (4.0-5.6cm) Aortic Cusp Exc.2.09 (1.5-2.0cm)PWd0.84 (0.7-1.1cm) FS (%) 26 %LVDs3.71 (2.0-3.8cm) LVEF (%)50 (>50%) Mitral Valve MV E Gwehvpzr36.8cm/sMV A Ypfjsjxq60.7cm/sE/A ratio0.9 TDI Lateral E' Peak V8.22cm/sMedial E' Peak V6.61cm/sE/Lateral E'8.1 E/Medial E'10.1 LEFT VENTRICLE The left ventricle is normal size. There is normal left ventricular wall thickness. The left ventricular function is normal. The left ventricular ejection fraction is within the normal range. No regional wall motion abnormalities noted. The left ventricular diastolic function is normal. No left ventricle thrombus noted on this study. There is no ventricular septal defect visualized. There is no left ventricular aneurysm. There is no mass noted in the left ventricle. RIGHT VENTRICLE The right ventricle is normal size. There is normal right ventricular wall thickness. The right ventricular systolic function is normal. ATRIA The left atrium size is normal. The right atrium size is normal. The interatrial septum is intact with no evidence for an atrial septal defect. AORTIC VALVE The aortic valve is normal in structure and function. No aortic regurgitation is present. There is no aortic valvular stenosis. There is no aortic valvular vegetation. MITRAL VALVE The mitral valve is normal in structure and function. There is no evidence of mitral valve prolapse. There is no mitral valve stenosis. Mitral regurgitation is mild. TRICUSPID VALVE The tricuspid valve is normal in structure and function. There is no tricuspid valve regurgitation noted. There is no tricuspid valve prolapse or vegetation. There is no tricuspid valve stenosis. PULMONIC VALVE The pulmonary valve is normal in structure and function. There is no pulmonic valvular regurgitation. There is no pulmonic valvular stenosis. GREAT VESSELS The aortic root is normal in size. The ascending aorta is normal in size. The pulmonary artery is normal. The IVC is normal in size and collapses >50% with inspiration. PERICARDIAL EFFUSION The pericardium appears normal. There is no pleural effusion. <Conclusion> The left ventricular function is normal. The left ventricular ejection fraction is within the normal range. No regional wall motion abnormalities noted. Mitral regurgitation is mild.
--- NOTE | 2018-09-13 16:46 | CP.PCM.PN ---
Subjective - Date & Time of Evaluation Date of Evaluation: 09/13/18 Time of Evaluation: 15:20 - Subjective Subjective: Patient seen and examined Less cough and shortness of breath Patient is afebrile Being treated for pneumonia Follow-up chest x-ray Spoke with family at length Objective - Vital Signs/Intake and Output Vital Signs (last 24 hours): Temp Pulse Resp BP Pulse Ox 97.7 F 76 18 165/72 H 98 09/13/18 07:00 09/13/18 07:00 09/13/18 07:00 09/13/18 11:25 09/13/18 07:00 Intake and Output: 09/13/18 09/13/18 06:59 18:59 Intake Total 710 Output Total 400 Balance 310 - Medications Medications: Current Medications Albuterol/Ipratropium (Duoneb 3 Mg/0.5 Mg (3 Ml) Ud) 3 ml INH RQ6 [facility] Last Admin: 09/13/18 13:50 Dose: 3 ml Aspirin (Aspirin) 325 mg PO DAILY [facility] Last Admin: 09/13/18 11:24 Dose: 325 mg Carvedilol (Coreg) 12.5 mg PO Q12 [facility] Last Admin: 09/13/18 11:25 Dose: 12.5 mg Heparin Sodium (Porcine) (Heparin) 5,000 units SC Q8 [facility] Last Admin: 09/13/18 05:24 Dose: 5,000 units Dextrose/Sodium Chloride (Dextrose 5%/0.9% Ns 1000 Ml) 1,000 mls @ 70 mls/hr IV .[id number] [facility] Last Admin: 09/13/18 05:24 Dose: 70 mls/hr Piperacillin Sod/Tazobactam Sod (Zosyn 2.25 Gm Iv Premix) 2.25 gm in 50 mls @ 100 mls/hr IVPB Q6H [facility]; Protocol Last Admin: 09/13/18 11:25 Dose: 100 mls/hr Azithromycin (Zithromax 500mg In Ns Addvantage) 500 mg in 250 mls @ 167 mls/hr IVPB Q24H [facility]; Protocol Last Admin: 09/12/18 18:43 Dose: 167 mls/hr Insulin Aspart (Novolog) 0 unit SC ACHS [facility]; Protocol Last Admin: 09/13/18 13:24 Dose: Not Given Rosuvastatin Calcium (Crestor) 20 mg PO HS [facility] Last Admin: 09/12/18 21:19 Dose: 20 mg - Labs Labs: 09/13/18 06:29 09/13/18 06:29 PT 13.6 SECONDS (9.7-12.2) H 09/11/18 21:50 INR 1.2 09/11/18 21:50 APTT 33 SECONDS (21-34) 09/11/18 21:50 - Head Exam Head Exam: ATRAUMATIC, NORMOCEPHALIC - Eye Exam Eye Exam: Normal appearance - ENT Exam ENT Exam: Mucous Membranes Moist - Neck Exam Neck Exam: Normal Inspection - Respiratory Exam Respiratory Exam: Rales - Cardiovascular Exam Cardiovascular Exam: REGULAR RHYTHM - GI/Abdominal Exam GI & Abdominal Exam: Soft, Normal Bowel Sounds Assessment and Plan (1) Pneumonia Assessment & Plan: Continue antibiotics Culture negative so far Follow-up chest x-ray Renal workup Status: Acute (2) Acute on chronic renal insufficiency Status: Acute
[2018-09-13] MEDS ORDERED: Potassium Chloride 20 mEq ER Tab PO ONE (18:23)
[2018-09-13] MEDS: Azithromycin 500mg/250ML NS 500 MG/250 ML BAG IVPB SCH (18:39)
--- NOTE | 2018-09-13 20:59 | CP.PCM.CON ---
History of Present Illness - History of Present Illness History of Present Illness: Reason For Cosnultation: HTN 73 year old male with PMHx TIA, HTN, CRI, seizure disorder presents to the ED for evaluation of SOB, weakness that started today. As per Family, patient appeared "winded" and could not walk without assistance. Patient denies history of asthma, CHF. Patient currently feels "back to normal" s/p nebulizer. Patient denies fever, chills, nausea, vomit, diarrhea, CP, palpitations, headache, dizziness, weakness, numbness, leg swelling. Patient currently taking diuretic. Patient's history limited due to clinical condition. LIMITED DUE TO CLIN COND SOB, WEAKNESS TODAY. PER FAMILY, PT APPEARED "WINDED" AND COULDNT WALK WO ASSISTANCE. PT DENIES HO ASTHMA, CHF. CURRENTLY FEELS "BACK TO NORMAL" S/P NEB. NO FEVER, CP, LEG SWELLING. ON DIURETIC. PMH TIA, HTN, CRI, SZ DO EXAM S/P DUONEB NARD APPEARS COMFORTABLE HEENT NEG LUNGS CTA B/L NO W/R/R NO RETRACTIONS, TACHYPNEA EXT NO EDEMA RRR REMAINDER NEG Chief Complaint (Nursing): Shortness Of Breath History Per: Patient, Family History/Exam Limitations: clinical condition Onset/Duration Of Symptoms: Hrs Current Symptoms Are (Timing): Better Initiating Event: Upper Respiratory Illness Quality: "Pain" Current Respiratory Medications: See Home Med List Associated Symptoms: Other (feeling winded) Recent travel outside of the [place]: No Additional History Per: Patient Past Medical History Reviewed: Historical Data, Nursing Documentation, Vital Signs Vital Signs: Last Vital Signs Temp 97.3 F L 09/11/18 20:17 Pulse 101 H 09/11/18 20:17 Resp 40 H 09/11/18 20:17 BP 143/63 09/11/18 20:17 Pulse Ox 93 L 09/11/18 20:17 - Medical History PMH: Diabetes, HTN, Hypercholesterolemia, Hyperlipidemia, Seizures Denies: Chronic Kidney Disease Surgical History: No Surg Hx Family History: States: Unknown Family Hx - Social History Hx Tobacco Use: No Hx Alcohol Use: No Hx Substance Use: No - Immunization History Hx Tetanus Toxoid Vaccination: No Hx Influenza Vaccination: Yes Hx Pneumococcal Vaccination: Yes Review Of Systems Constitutional: Positive for: Weakness. Negative for: Fever, Chills Cardiovascular: Negative for: Chest Pain Respiratory: Positive for: Shortness of Breath. Negative for: Cough, Sputum, Wheezing Gastrointestinal: Negative for: Nausea, Vomiting, Abdominal Pain Genitourinary: Negative for: Dysuria, Hematuria Skin: Negative for: Rash Neurological: Negative for: Numbness, Headache, Dizziness Physical Exam - Physical Exam Appears: Non-toxic, Other (s/p duoneb appears comfortable) Skin: Normal Color, Warm, Dry Head: Atraumatic, Normacephalic Eye(s): bilateral: Normal Inspection Oral Mucosa: Moist Neck: Normal ROM, Supple Chest: Symmetrical Cardiovascular: Rhythm Regular Respiratory: Normal Breath Sounds, No Rales, No Rhonchi, No Wheezing, Other (no retractions, dyspnea, s/p nebulizer NARD) Gastrointestinal/Abdominal: Soft, No Tenderness, No Guarding, No Rebound Extremity: Normal ROM, No Tenderness, No Swelling Neurological/Psych: Oriented x3, Normal Speech, Normal Cognition Gait: Steady Past Patient History - Infectious Disease Hx of Infectious Diseases: None - Past Medical History & Family History Past Medical History?: Yes - Past Social History Smoking Status: Former Smoker - CARDIAC Hx Cardiac Disorders: Yes Hx Hypercholesterolemia: Yes Hx Hypertension: Yes - PULMONARY Hx Respiratory Disorders: No - NEUROLOGICAL Hx Seizures: Yes Hx Transient Ischemic Attacks (TIA): Yes (2018 dx at [facility] [place]) - HEENT Hx HEENT Problems: No - RENAL Hx Chronic Kidney Disease: No - ENDOCRINE/METABOLIC Hx Endocrine Disorders: Yes Hx Diabetes Mellitus Type 1: Yes - HEMATOLOGICAL/ONCOLOGICAL Hx Blood Disorders: No - INTEGUMENTARY Hx Dermatological Problems: No - MUSCULOSKELETAL/RHEUMATOLOGICAL Hx Musculoskeletal Disorders: Yes Hx Falls: Yes Hx Gout: Yes - GASTROINTESTINAL Hx Gastrointestinal Disorders: No - GENITOURINARY/GYNECOLOGICAL Hx Genitourinary Disorders: No - PSYCHIATRIC Hx Psychophysiologic Disorder: No Hx Substance Use: No - SURGICAL HISTORY Hx Surgeries: Yes Other/Comment: " vein surgery " for circulation - ANESTHESIA Hx Anesthesia: Yes Hx Anesthesia Reactions: No Has any member of the family had a problem w/ anesthesia?: No Meds Allergies/Adverse Reactions: Allergies Allergy/AdvReac Type Severity Reaction Status Date / Time lisinopril Allergy Verified 09/11/18 20:23 - Medications Medications: Current Medications Albuterol/Ipratropium (Duoneb 3 Mg/0.5 Mg (3 Ml) Ud) 3 ml INH RQ6 [facility] Last Admin: 09/13/18 19:10 Dose: 3 ml Allopurinol (Zyloprim) 100 mg PO DAILY [facility] Aspirin (Aspirin) 325 mg PO DAILY [facility] Last Admin: 09/13/18 11:24 Dose: 325 mg Carvedilol (Coreg) 12.5 mg PO Q12 [facility] Last Admin: 09/13/18 11:25 Dose: 12.5 mg Heparin Sodium (Porcine) (Heparin) 5,000 units SC Q8 [facility] Last Admin: 09/13/18 05:24 Dose: 5,000 units Dextrose/Sodium Chloride (Dextrose 5%/0.9% Ns 1000 Ml) 1,000 mls @ 70 mls/hr IV .[id number] [facility] Last Admin: 09/13/18 05:24 Dose: 70 mls/hr Piperacillin Sod/Tazobactam Sod (Zosyn 2.25 Gm Iv Premix) 2.25 gm in 50 mls @ 100 mls/hr IVPB Q6H [facility]; Protocol Last Admin: 09/13/18 17:00 Dose: 100 mls/hr Azithromycin (Zithromax 500mg In Ns Addvantage) 500 mg in 250 mls @ 167 mls/hr IVPB Q24H [facility]; Protocol Last Admin: 09/13/18 18:39 Dose: 167 mls/hr Insulin Aspart (Novolog) 0 unit SC ACHS [facility]; Protocol Last Admin: 09/13/18 17:45 Dose: Not Given Isoniazid (Niazid) 300 mg PO DAILY [facility]; Protocol Phenytoin Sodium (Dilantin) 100 mg PO TID [facility] Rosuvastatin Calcium (Crestor) 20 mg PO HS [facility] Last Admin: 09/12/18 21:19 Dose: 20 mg Results - Vital Signs Recent Vital Signs: Last Vital Signs Temp 97.8 F 09/13/18 15:00 Pulse 68 09/13/18 18:00 Resp 18 09/13/18 15:00 BP 130/80 09/13/18 15:00 Pulse Ox 96 09/13/18 15:00 - Labs Result Diagrams: 09/13/18 06:29 09/13/18 06:29 Labs: Laboratory Results - last 24 hr 09/12/18 09/13/18 09/13/18 22:17 06:07 06:29 WBC RBC Hgb Hct MCV MCH MCHC RDW Plt Count MPV Neut % (Auto) Lymph % (Auto) [place] % (Auto) Eos % (Auto) Baso % (Auto) Neut # (Auto) Lymph # (Auto) [place] # (Auto) Eos # (Auto) Baso # (Auto) Neutrophils % (Manual) Band Neutrophils % Lymphocytes % (Manual) Reactive Lymphs % Monocytes % (Manual) Toxic Granulation Platelet Estimate Plt Clumps, EDTA Large Platelets Polychromasia Hypochromasia (manual) Poikilocytosis (manual Anisocytosis (manual) [place] Cells Sodium Potassium Chloride Carbon Dioxide Anion Gap BUN Creatinine Est GFR ( Amer) Est GFR (Non-Af Amer) POC Glucose (mg/dL) 134 H 123 H Random Glucose Calcium Phosphorus Total Bilirubin AST ALT Alkaline Phosphatase Total Protein Albumin Globulin Albumin/Globulin Ratio Complement C3 Complement C4 Hepatitis A IgM Ab Negative Hep Bs Antigen Negative Hep B Core IgM Ab Negative Hepatitis C Antibody Negative HIV 1&2 Antibody Screen 09/13/18 09/13/18 09/13/18 06:29 06:29 06:29 WBC 14.6 H RBC 3.44 L Hgb 9.5 L Hct 29.4 L MCV 85.5 MCH 27.6 MCHC 32.3 L RDW 14.4 Plt Count 357 MPV 8.1 Neut % (Auto) 81.3 H Lymph % (Auto) 8.7 L [place] % (Auto) 9.0 Eos % (Auto) 0.9 Baso % (Auto) 0.1 Neut # (Auto) 11.8 H Lymph # (Auto) 1.3 [place] # (Auto) 1.3 H Eos # (Auto) 0.1 Baso # (Auto) 0.0 Neutrophils % (Manual) 83 H Band Neutrophils % 1 Lymphocytes % (Manual) 7 L Reactive Lymphs % 1 H Monocytes % (Manual) 8 Toxic Granulation Present Platelet Estimate Normal Plt Clumps, EDTA Present Large Platelets Present Polychromasia Slight Hypochromasia (manual) Slight Poikilocytosis (manual Slight Anisocytosis (manual) Slight [place] Cells Slight Sodium 136 Potassium 3.3 L Chloride 104 Carbon Dioxide 22 Anion Gap 13 BUN 67 H Creatinine 3.1 H Est GFR ( Amer) 24 Est GFR (Non-Af Amer) 20 POC Glucose (mg/dL) Random Glucose 126 H D Calcium 8.5 L Phosphorus 3.8 Total Bilirubin 1.0 AST 125 H ALT 69 Alkaline Phosphatase 190 H D Total Protein 6.6 Albumin 3.1 L Globulin 3.5 Albumin/Globulin Ratio 0.9 L Complement C3 Complement C4 Hepatitis A IgM Ab Hep Bs Antigen Hep B Core IgM Ab Hepatitis C Antibody HIV 1&2 Antibody Screen Negative 09/13/18 09/13/18 09/13/18 06:29 12:55 17:33 WBC RBC Hgb Hct MCV MCH MCHC RDW Plt Count MPV Neut % (Auto) Lymph % (Auto) [place] % (Auto) Eos % (Auto) Baso % (Auto) Neut # (Auto) Lymph # (Auto) [place] # (Auto) Eos # (Auto) Baso # (Auto) Neutrophils % (Manual) Band Neutrophils % Lymphocytes % (Manual) Reactive Lymphs % Monocytes % (Manual) Toxic Granulation Platelet Estimate Plt Clumps, EDTA Large Platelets Polychromasia Hypochromasia (manual) Poikilocytosis (manual Anisocytosis (manual) [place] Cells Sodium Potassium Chloride Carbon Dioxide Anion Gap BUN Creatinine Est GFR ( Amer) Est GFR (Non-Af Amer) POC Glucose (mg/dL) 198 H 147 H Random Glucose Calcium Phosphorus Total Bilirubin AST ALT Alkaline Phosphatase Total Protein Albumin Globulin Albumin/Globulin Ratio Complement C3 114.0 Complement C4 23.8 Hepatitis A IgM Ab Hep Bs Antigen Hep B Core IgM Ab Hepatitis C Antibody HIV 1&2 Antibody Screen Assessment & Plan - Assessment and Plan (Free Text) Assessment: HTN Controlled Acute on Chronic CKD Altered mental status
--- NOTE | 2018-09-14 00:18 | PN ---
DATE: 09/13/2018 SUBJECTIVE: The patient was seen and examined at bedside. The patient offers no new complaints. PHYSICAL EXAMINATION: GENERAL: Elderly male, lying in bed, in no acute distress. VITAL SIGNS: Blood pressure 130/80, pulse 77, respirations 18, temperature 97.8 degrees Fahrenheit, O2 sat is 96% on 2 L nasal cannula. HEENT: Pupils equal, round, and reacting to light and accommodation. Extraocular muscles intact. No icterus. No pallor. No oral thrush. No pharyngeal congestion. NECK: Supple. No JVD. LUNGS: Bilateral vesicular breath sounds. Bilateral basal rhonchi heard. CARDIOVASCULAR SYSTEM: S1 and S2 present, regular. ABDOMEN: Soft and nontender. Bowel sounds present. No guarding. No rigidity. No rebound tenderness noted. CENTRAL NERVOUS SYSTEM: Alert, awake, and oriented x3. No focal deficits noted. EXTREMITIES: No edema. MEDICATIONS: Include DuoNeb 3 mL every 6 hours, aspirin 325 mg daily, azithromycin 500 mg daily, Coreg 12.5 mg every 12 hours, D5 normal saline 70 mL an hour, subcu heparin 5000 units every 8 hours, Zosyn 2.25 g IV every 6 hours, Crestor 20 mg p.o. at bedtime. LABORATORY DATA: Labs drawn this morning: WBC 14.6, hemoglobin 9.5, hematocrit 29.4, platelets 357. Sodium 136, potassium 3.3, chloride 104, bicarb 22, BUN 67, creatinine 3.1, glucose 123, calcium 8.5. Alkaline phosphatase 190, AST 125, ALT 69, total protein 6.6, albumin 3.1. C3 and C4 within normal limits. HIV negative. Hepatitis serology negative. Urine culture negative. Blood culture so far negative. Renal ultrasound, right renal cyst, trace right perinephric fluid. ASSESSMENT AND PLAN: Elderly male with history of hypertension, hyperlipidemia, seizure disorder, chronic kidney disease, history of transient ischemic attack, history of tuberculosis exposure in 03/2018, on isoniazid prophylaxis. Admitted for pneumonia, emphysema, elevated white blood cell count with possible sepsis, acute on chronic kidney disease. His white count is improving. Renal function remains the same. We will continue with gentle hydration. We will continue with his home medications. We will continue with current antibiotics. Infectious Disease, Renal and Pulmonary consults appreciated. Judie Ramirez MD [facility] # [id number]
[2018-09-14] MEDS: Albuterol-Ipratrop 3 mg / 0.5 (3 ml) UD INH SCH ×3 (01:19→13:20)
--- NOTE | 2018-09-14 03:29 | PN ---
DATE: 09/13/2018 FOLLOWUP RENAL CONSULTATION LOCATION: The patient is located in room 651, bed A. REQUESTED BY: Judie Ramirez MD SUBJECTIVE: Mr. Wells is a 73-year-old elderly male with a past medical history significant for diabetes, hypertension, hypercholesteremia, seizures, smoker, emphysema who was admitted with chief complaints of feeling weak, tired and cough and with labored breathing. The patient's family brought to the hospital for further evaluation. The patient was found to have pneumonia and also worsening renal function and increased WBC count. The patient was admitted for left lung pneumonia. The patient is feeling slightly better today, not in acute distress. No chest pain. No palpitation. No fever. No cough. PHYSICAL EXAMINATION: VITAL SIGNS: As follows: Blood pressure 130/80, pulse 77, respirations about 18, temperature 97.8, saturation 96%. Height 5 feet 10 inches. Weight is 180 pounds. GENERAL: Mr. Wells is a 73-year-old elderly male, moderately built, moderately nourished, not in acute distress. HEENT: Pupils are normal and reactive to light and accommodation. Conjunctivae pink. Sclerae anicteric. Tongue is moist. Trachea is midline. LUNGS: Decreased breath sounds on the left base. Right side has normal breath sounds. CARDIOVASCULAR SYSTEM: S1 and S2 audible. No murmur or gallop. ABDOMEN: Normal in appearance, soft, tympanitic. No guarding. No rigidity. No hepatosplenomegaly. CENTRAL NERVOUS SYSTEM: The patient is alert, awake, oriented x2. Sensory and motor system is within normal limits. EXTREMITIES: No cyanosis, no clubbing, no edema. MEDICATIONS: His current medications include as follows: Aspirin 325 mg p.o. daily, Coreg 12.5 mg every 12 hours, Crestor 20 mg p.o. at bedtime, D5 normal saline at 70 mL per hour, Dilantin 100 mg p.o. t.i.d., DuoNeb inhaler, subcu heparin 5000 units every 8 hours, INH 300 mg p.o. daily, NovoLog insulin, also Zithromax 500 mg p.o. every 24 hours, Zosyn 2.25 g every 8 hours, and allopurinol 100 mg p.o. daily. LABORATORY DATA: Include as follows as of 09/13/2018: WBC 14.6, hemoglobin 9.5, hematocrit is 29.4, platelets 357, neutrophils 83, bands 1, lymphs 7, reactive lymph is 1, and mono is 8. Sodium 136, potassium 3.3, chloride 104, CO2 of 22, BUN 67, creatinine 3.1, glucose 126, calcium 8.5, phosphorus 3.8, magnesium is not available. Total bili 1, AST 125, ALT 69, alkaline phosphatase 190, total protein 6.6, albumin is 3.1. C3 is 114 and C4 is 23.8. Hepatitis A antibody IgM is negative. Hepatitis B surface antigen is negative. Hepatitis B core antibody is negative. Hepatitis C antibody is negative. HIV-1 and 2 antibody screening is negative. Blood culture reports as of 09/11/2018, no growth after day-two x2. Urine culture is also negative. ASSESSMENT: In summary, Mr. Wells is a 73-year-old elderly male with a history of hypertension, hyperlipidemia, seizures, diabetes, ex-smoker, emphysema. He was admitted with cough, shortness of breath, weakness, increased blood urea nitrogen and creatinine, and increased white blood cell count. 1. Acute renal failure on chronic kidney disease stage 3, most likely secondary to intravascular depletion, cannot rule out acute tubular necrosis secondary to pneumonia and sepsis. 2. Hypertension. 3. Pneumonia, left lung. 4. Seizure disorder. PLAN: Continue IV antibiotics as per Dr. Rene Ramirez and continue to monitor BMP. Continue IV fluids. Ultrasound of the kidneys report is reviewed. Right kidney 10.2 cm and left kidney 10.3 cm. Right renal cysts, trace right perinephric fluid. Echogenic renal parenchyma may be seen in the setting of medical renal disease. Supplement potassium as needed and also may check magnesium level in a.m. Also, we will add pyridoxine 50 mg p.o. daily with INH. We will follow with you. Thank you for allowing me to participate in your patient's care. Wai Ramirez MD
[2018-09-14] MEDS: Piperacill/Tazo 2.25gm in Dex 2.25 GM/50 ML BAG IVPB SCH ×4 (04:52→22:24)
[2018-09-14 07:25] LABS: BASO % 0.3 % (0.0-2.0); EOS # 0.2 K/uL (0.0-0.7); EOS % 1.7 % (0.0-4.0); HEMOGLOBIN 9.4 g/dL (12.0-18.0); LYMPH # 1.5 K/uL (1.0-4.3); LYMPH % 10.9 % (20.0-40.0); MEAN CELL VOLUME 85.2 fL (80.0-94.0); MEAN CORPUSCULAR HEMOGLOBIN 27.4 pg (27.0-31.0); MEAN CORPUSCULAR HGB CONC 32.2 g/dL (33.0-37.0); MEAN PLATELET VOLUME 7.7 fL (7.2-11.7); MONO # 1.1 K/uL (0.0-0.8); MONO % 7.9 % (0.0-10.0); NEUT # 11.3 K/uL (1.8-7.0); NEUT % 79.2 % (50.0-75.0); RBC 3.43 Mil/uL (4.40-5.90); RED CELL DISTRIBUTION WIDTH 14.6 % (11.5-14.5); WHITE BLOOD COUNT 14.2 K/uL (4.8-10.8)
[2018-09-14 07:34] LABS: ALB/GLOB RATIO 0.8 (1.0-2.1); ALBUMIN 2.9 g/dL (3.5-5.0); CALCIUM 8.2 mg/dl (8.6-10.4)
[2018-09-14] MEDS: (Novolog) Insulin Aspart, Recombinant 100 u/ml 10 ml vial SC SCH ×4 (08:43→22:52)
[2018-09-14] MEDS: Dextrose 5%/0.9% NS 1,000 ML IV SCH ×2 (08:44→22:22)
[2018-09-14] MEDS ORDERED: Potassium Chloride 20 mEq ER Tab PO SCH (10:00)
--- NOTE | 2018-09-14 11:44 | CP.PCM.PN ---
Subjective - Date & Time of Evaluation Date of Evaluation: 09/14/18 Time of Evaluation: 11:44 - Subjective Subjective: Progress note dictated #[id number] Objective - Vital Signs/Intake and Output Vital Signs (last 24 hours): Temp Pulse Resp BP Pulse Ox 98.0 F 70 18 175/75 H 97 09/14/18 07:00 09/14/18 10:00 09/14/18 07:00 09/14/18 09:44 09/14/18 07:00 Intake and Output: 09/14/18 09/14/18 06:59 18:59 Intake Total 610 Output Total 50 Balance 560 - Medications Medications: Current Medications Albuterol/Ipratropium (Duoneb 3 Mg/0.5 Mg (3 Ml) Ud) 3 ml INH RQ6 [facility] Last Admin: 09/14/18 07:35 Dose: 3 ml Allopurinol (Zyloprim) 100 mg PO DAILY [facility] Last Admin: 09/14/18 09:44 Dose: 100 mg Aspirin (Aspirin) 325 mg PO DAILY [facility] Last Admin: 09/14/18 09:44 Dose: 325 mg Carvedilol (Coreg) 12.5 mg PO Q12 [facility] Last Admin: 09/14/18 09:44 Dose: 12.5 mg Heparin Sodium (Porcine) (Heparin) 5,000 units SC Q8 [facility] Last Admin: 09/14/18 05:48 Dose: 5,000 units Dextrose/Sodium Chloride (Dextrose 5%/0.9% Ns 1000 Ml) 1,000 mls @ 70 mls/hr IV .[id number] [facility] Last Admin: 09/14/18 08:44 Dose: Not Given Piperacillin Sod/Tazobactam Sod (Zosyn 2.25 Gm Iv Premix) 2.25 gm in 50 mls @ 100 mls/hr IVPB Q6H [facility]; Protocol Last Admin: 09/14/18 09:43 Dose: 100 mls/hr Azithromycin (Zithromax 500mg In Ns Addvantage) 500 mg in 250 mls @ 167 mls/hr IVPB Q24H [facility]; Protocol Last Admin: 09/13/18 18:39 Dose: 167 mls/hr Insulin Aspart (Novolog) 0 unit SC ACHS [facility]; Protocol Last Admin: 09/14/18 08:43 Dose: Not Given Isoniazid (Niazid) 300 mg PO DAILY [facility]; Protocol Last Admin: 09/14/18 09:44 Dose: 300 mg Phenytoin Sodium (Dilantin) 100 mg PO TID [facility] Last Admin: 09/14/18 09:44 Dose: 100 mg Rosuvastatin Calcium (Crestor) 20 mg PO HS [facility] Last Admin: 09/13/18 21:50 Dose: 20 mg - Labs Labs: 09/14/18 07:17 09/14/18 07:17 PT 13.6 SECONDS (9.7-12.2) H 09/11/18 21:50 INR 1.2 09/11/18 21:50 APTT 33 SECONDS (21-34) 09/11/18 21:50
--- NOTE | 2018-09-14 13:05 | CARD ---
APPROVED REPORT Date of service: 09/11/2018 EKG Measurement Heart [id number] <Conclusion> Normal sinus rhythm Possible Left atrial enlargement Prolonged QT Abnormal ECG
--- NOTE | 2018-09-14 15:09 | CP.PCM.PN ---
Subjective - Date & Time of Evaluation Date of Evaluation: 09/14/18 Time of Evaluation: 09:00 - Subjective Subjective: less cough less SOB cardio and pulm on board all cultures negative WBC less Objective - Vital Signs/Intake and Output Vital Signs (last 24 hours): Temp Pulse Resp BP Pulse Ox 98.0 F 70 18 175/75 H 97 09/14/18 07:00 09/14/18 10:00 09/14/18 07:00 09/14/18 09:44 09/14/18 07:00 Intake and Output: 09/14/18 09/14/18 06:59 18:59 Intake Total 610 1060 Output Total 50 Balance 560 1060 - Medications Medications: Current Medications Albuterol/Ipratropium (Duoneb 3 Mg/0.5 Mg (3 Ml) Ud) 3 ml INH RQ6 [facility] Last Admin: 09/14/18 13:20 Dose: 3 ml Allopurinol (Zyloprim) 100 mg PO DAILY [facility] Last Admin: 09/14/18 09:44 Dose: 100 mg Aspirin (Aspirin) 325 mg PO DAILY [facility] Last Admin: 09/14/18 09:44 Dose: 325 mg Carvedilol (Coreg) 12.5 mg PO Q12 [facility] Last Admin: 09/14/18 09:44 Dose: 12.5 mg Heparin Sodium (Porcine) (Heparin) 5,000 units SC Q8 [facility] Last Admin: 09/14/18 13:26 Dose: 5,000 units Dextrose/Sodium Chloride (Dextrose 5%/0.9% Ns 1000 Ml) 1,000 mls @ 70 mls/hr IV .[id number] [facility] Last Admin: 09/14/18 08:44 Dose: Not Given Piperacillin Sod/Tazobactam Sod (Zosyn 2.25 Gm Iv Premix) 2.25 gm in 50 mls @ 100 mls/hr IVPB Q6H [facility]; Protocol Last Admin: 09/14/18 09:43 Dose: 100 mls/hr Azithromycin (Zithromax 500mg In Ns Addvantage) 500 mg in 250 mls @ 167 mls/hr IVPB Q24H [facility]; Protocol Last Admin: 09/13/18 18:39 Dose: 167 mls/hr Insulin Aspart (Novolog) 0 unit SC ACHS [facility]; Protocol Last Admin: 09/14/18 12:16 Dose: Not Given Isoniazid (Niazid) 300 mg PO DAILY [facility]; Protocol Last Admin: 09/14/18 09:44 Dose: 300 mg Phenytoin Sodium (Dilantin) 100 mg PO TID [facility] Last Admin: 09/14/18 13:26 Dose: 100 mg Rosuvastatin Calcium (Crestor) 20 mg PO HS [facility] Last Admin: 09/13/18 21:50 Dose: 20 mg - Labs Labs: 09/14/18 07:17 09/14/18 07:17 PT 13.6 SECONDS (9.7-12.2) H 09/11/18 21:50 INR 1.2 09/11/18 21:50 APTT 33 SECONDS (21-34) 09/11/18 21:50 - Constitutional Appears: Non-toxic, Chronically Ill - Head Exam Head Exam: NORMOCEPHALIC - Eye Exam Eye Exam: absent: Scleral icterus - ENT Exam ENT Exam: Mucous Membranes Dry, Normal External Ear Exam - Neck Exam Neck Exam: absent: Lymphadenopathy - Respiratory Exam Respiratory Exam: Decreased Breath Sounds, Rales, Rhonchi - Cardiovascular Exam Cardiovascular Exam: REGULAR RHYTHM - GI/Abdominal Exam GI & Abdominal Exam: Distended, Soft - Rectal Exam Rectal Exam: Deferred - Exam Exam: NORMAL INSPECTION - Extremities Exam Extremities Exam: Pedal Edema - Back Exam Back Exam: absent: CVA tenderness (L), CVA tenderness (R) - Neurological Exam Neurological Exam: Alert, Awake, CN II-XII Intact, Oriented x3 - Psychiatric Exam Psychiatric exam: Depressed - Skin Skin Exam: Dry Assessment and Plan (1) Acute on chronic renal insufficiency Status: Acute (2) Pneumonia Status: Acute (3) CKD (chronic kidney disease) stage 4, GFR 15-29 ml/min Status: Chronic (4) Diabetes mellitus Status: Chronic (5) Hyperlipidemia Status: Chronic (6) Hypertension Status: Chronic - Assessment and Plan (Free Text) Assessment: cont rx pneumonia/ sepsis await cultures and serologies PT/OT cardio and pulm follow up
--- NOTE | 2018-09-14 15:53 | CP.PCM.PN ---
Subjective - Date & Time of Evaluation Date of Evaluation: 09/14/18 - Subjective Subjective: Patient seen and examined Wants to go home Denies cough, denies fever chills, denies chest pain Patient is awake and responsive No chest pain Repeat chest x-ray in a.m. Continue antibiotics Clinically improving Nephrology workup Objective - Vital Signs/Intake and Output Vital Signs (last 24 hours): Temp Pulse Resp BP Pulse Ox 98.0 F 70 18 175/75 H 97 09/14/18 07:00 09/14/18 10:00 09/14/18 07:00 09/14/18 09:44 09/14/18 07:00 Intake and Output: 09/14/18 09/14/18 06:59 18:59 Intake Total 610 1060 Output Total 50 Balance 560 1060 - Medications Medications: Current Medications Albuterol/Ipratropium (Duoneb 3 Mg/0.5 Mg (3 Ml) Ud) 3 ml INH RQ6 [facility] Last Admin: 09/14/18 13:20 Dose: 3 ml Allopurinol (Zyloprim) 100 mg PO DAILY [facility] Last Admin: 09/14/18 09:44 Dose: 100 mg Aspirin (Aspirin) 325 mg PO DAILY [facility] Last Admin: 09/14/18 09:44 Dose: 325 mg Carvedilol (Coreg) 12.5 mg PO Q12 [facility] Last Admin: 09/14/18 09:44 Dose: 12.5 mg Heparin Sodium (Porcine) (Heparin) 5,000 units SC Q8 [facility] Last Admin: 09/14/18 13:26 Dose: 5,000 units Dextrose/Sodium Chloride (Dextrose 5%/0.9% Ns 1000 Ml) 1,000 mls @ 70 mls/hr IV .[id number] [facility] Last Admin: 09/14/18 08:44 Dose: Not Given Piperacillin Sod/Tazobactam Sod (Zosyn 2.25 Gm Iv Premix) 2.25 gm in 50 mls @ 100 mls/hr IVPB Q6H [facility]; Protocol Last Admin: 09/14/18 09:43 Dose: 100 mls/hr Azithromycin (Zithromax 500mg In Ns Addvantage) 500 mg in 250 mls @ 167 mls/hr IVPB Q24H [facility]; Protocol Last Admin: 09/13/18 18:39 Dose: 167 mls/hr Insulin Aspart (Novolog) 0 unit SC ACHS [facility]; Protocol Last Admin: 09/14/18 12:16 Dose: Not Given Isoniazid (Niazid) 300 mg PO DAILY [facility]; Protocol Last Admin: 09/14/18 09:44 Dose: 300 mg Phenytoin Sodium (Dilantin) 100 mg PO TID [facility] Last Admin: 09/14/18 13:26 Dose: 100 mg Rosuvastatin Calcium (Crestor) 20 mg PO HS [facility] Last Admin: 09/13/18 21:50 Dose: 20 mg - Labs Labs: 09/14/18 07:17 09/14/18 07:17 PT 13.6 SECONDS (9.7-12.2) H 09/11/18 21:50 INR 1.2 09/11/18 21:50 APTT 33 SECONDS (21-34) 09/11/18 21:50 Assessment and Plan (1) Pneumonia Status: Acute (2) Acute on chronic renal insufficiency Status: Acute
--- NOTE | 2018-09-14 16:27 | CP.PCM.PN ---
Subjective - Date & Time of Evaluation Date of Evaluation: 09/14/18 Time of Evaluation: 16:27 - Subjective Subjective: pt is seen and examined, follow up consult is dictated#[id number] Objective - Vital Signs/Intake and Output Vital Signs (last 24 hours): Temp Pulse Resp BP Pulse Ox 98.0 F 70 18 175/75 H 97 09/14/18 07:00 09/14/18 10:00 09/14/18 07:00 09/14/18 09:44 09/14/18 07:00 Intake and Output: 09/14/18 09/14/18 06:59 18:59 Intake Total 610 1060 Output Total 50 Balance 560 1060 - Medications Medications: Current Medications Albuterol/Ipratropium (Duoneb 3 Mg/0.5 Mg (3 Ml) Ud) 3 ml INH RQ6 [facility] Last Admin: 09/14/18 13:20 Dose: 3 ml Allopurinol (Zyloprim) 100 mg PO DAILY [facility] Last Admin: 09/14/18 09:44 Dose: 100 mg Aspirin (Aspirin) 325 mg PO DAILY [facility] Last Admin: 09/14/18 09:44 Dose: 325 mg Carvedilol (Coreg) 12.5 mg PO Q12 [facility] Last Admin: 09/14/18 09:44 Dose: 12.5 mg Heparin Sodium (Porcine) (Heparin) 5,000 units SC Q8 [facility] Last Admin: 09/14/18 13:26 Dose: 5,000 units Dextrose/Sodium Chloride (Dextrose 5%/0.9% Ns 1000 Ml) 1,000 mls @ 70 mls/hr IV .[id number] [facility] Last Admin: 09/14/18 08:44 Dose: Not Given Piperacillin Sod/Tazobactam Sod (Zosyn 2.25 Gm Iv Premix) 2.25 gm in 50 mls @ 100 mls/hr IVPB Q6H [facility]; Protocol Last Admin: 09/14/18 09:43 Dose: 100 mls/hr Azithromycin (Zithromax 500mg In Ns Addvantage) 500 mg in 250 mls @ 167 mls/hr IVPB Q24H [facility]; Protocol Last Admin: 09/13/18 18:39 Dose: 167 mls/hr Insulin Aspart (Novolog) 0 unit SC ACHS [facility]; Protocol Last Admin: 09/14/18 12:16 Dose: Not Given Isoniazid (Niazid) 300 mg PO DAILY [facility]; Protocol Last Admin: 09/14/18 09:44 Dose: 300 mg Phenytoin Sodium (Dilantin) 100 mg PO TID [facility] Last Admin: 09/14/18 13:26 Dose: 100 mg Rosuvastatin Calcium (Crestor) 20 mg PO HS [facility] Last Admin: 09/13/18 21:50 Dose: 20 mg - Labs Labs: 09/14/18 07:17 09/14/18 07:17 PT 13.6 SECONDS (9.7-12.2) H 09/11/18 21:50 INR 1.2 09/11/18 21:50 APTT 33 SECONDS (21-34) 09/11/18 21:50
[2018-09-14] MEDS: Azithromycin 500mg/250ML NS 500 MG/250 ML BAG IVPB SCH (18:00)
--- NOTE | 2018-09-14 19:55 | CP.PCM.PN ---
Subjective - Date & Time of Evaluation Date of Evaluation: 09/14/18 Time of Evaluation: 19:53 - Subjective Subjective: Patient seen and evaluated Denies chest pain and dyspnea BP elevated Review Of Systems Constitutional: Positive for: Weakness. Negative for: Fever, Chills Cardiovascular: Negative for: Chest Pain Respiratory: Positive for: Shortness of Breath. Negative for: Cough, Sputum, Wheezing Gastrointestinal: Negative for: Nausea, Vomiting, Abdominal Pain Genitourinary: Negative for: Dysuria, Hematuria Skin: Negative for: Rash Neurological: Negative for: Numbness, Headache, Dizziness Physical Exam - Physical Exam Appears: Non-toxic, Other (s/p duoneb appears comfortable) Skin: Normal Color, Warm, Dry Head: Atraumatic, Normacephalic Eye(s): bilateral: Normal Inspection Oral Mucosa: Moist Neck: Normal ROM, Supple Chest: Symmetrical Cardiovascular: Rhythm Regular Respiratory: Normal Breath Sounds, No Rales, No Rhonchi, No Wheezing, Other (no retractions, dyspnea, s/p nebulizer NARD) Gastrointestinal/Abdominal: Soft, No Tenderness, No Guarding, No Rebound Extremity: Normal ROM, No Tenderness, No Swelling Neurological/Psych: Oriented x3, Normal Speech, Normal Cognition Gait: Steady Assessment & Plan - Assessment and Plan (Free Text) Assessment: HTN Un Controlled will add Norvasc 5mg po daily Acute on Chronic CKD Altered mental status Objective - Vital Signs/Intake and Output Vital Signs (last 24 hours): Temp Pulse Resp BP Pulse Ox 98.1 F 78 20 184/69 H 96 09/14/18 15:00 09/14/18 16:30 09/14/18 15:00 09/14/18 15:00 09/14/18 15:00 Intake and Output: 09/14/18 09/15/18 18:59 06:59 Intake Total 1060 Balance 1060 - Medications Medications: Current Medications Albuterol/Ipratropium (Duoneb 3 Mg/0.5 Mg (3 Ml) Ud) 3 ml INH RQ6 [facility] Last Admin: 09/14/18 13:20 Dose: 3 ml Allopurinol (Zyloprim) 100 mg PO DAILY [facility] Last Admin: 09/14/18 09:44 Dose: 100 mg Aspirin (Aspirin) 325 mg PO DAILY [facility] Last Admin: 09/14/18 09:44 Dose: 325 mg Carvedilol (Coreg) 12.5 mg PO Q12 [facility] Last Admin: 09/14/18 09:44 Dose: 12.5 mg Clonidine HCl (Catapres) 0.2 mg PO Q8H [facility] Heparin Sodium (Porcine) (Heparin) 5,000 units SC Q8 [facility] Last Admin: 09/14/18 13:26 Dose: 5,000 units Dextrose/Sodium Chloride (Dextrose 5%/0.9% Ns 1000 Ml) 1,000 mls @ 70 mls/hr IV .[id number] [facility] Last Admin: 09/14/18 08:44 Dose: Not Given Piperacillin Sod/Tazobactam Sod (Zosyn 2.25 Gm Iv Premix) 2.25 gm in 50 mls @ 100 mls/hr IVPB Q6H [facility]; Protocol Last Admin: 09/14/18 18:00 Dose: 100 mls/hr Azithromycin (Zithromax 500mg In Ns Addvantage) 500 mg in 250 mls @ 167 mls/hr IVPB Q24H [facility]; Protocol Last Admin: 09/14/18 18:00 Dose: 167 mls/hr Insulin Aspart (Novolog) 0 unit SC ACHS [facility]; Protocol Last Admin: 09/14/18 16:50 Dose: Not Given Isoniazid (Niazid) 300 mg PO DAILY [facility]; Protocol Last Admin: 09/14/18 09:44 Dose: 300 mg Phenytoin Sodium (Dilantin) 100 mg PO TID [facility] Last Admin: 09/14/18 18:00 Dose: 100 mg Rosuvastatin Calcium (Crestor) 20 mg PO HS [facility] Last Admin: 09/13/18 21:50 Dose: 20 mg - Labs Labs: 09/14/18 07:17 09/14/18 07:17 PT 13.6 SECONDS (9.7-12.2) H 09/11/18 21:50 INR 1.2 09/11/18 21:50 APTT 33 SECONDS (21-34) 09/11/18 21:50
--- NOTE | 2018-09-14 21:12 | PN ---
DATE: 09/14/2018 SUBJECTIVE: The patient was seen and examined at bedside. The patient offers no new complaints. Wants to be discharged. Denies any headache, dizziness. Denies any chest pain or shortness of breath. PHYSICAL EXAMINATION: GENERAL: Elderly male, lying in bed, in no acute distress. VITAL SIGNS: Blood pressure 184/69, pulse 76, respirations 20, temperature 98.1 degrees Fahrenheit, O2 saturations 96% on room air. HEENT: Pupils are equal, round, and reacting to light and accommodation. Extraocular muscles intact. No icterus. No pallor. No oral thrush. No pharyngeal congestion. NECK: Supple. No JVD. LUNGS: Bilateral vesicular breath sounds. No wheezing. No rhonchi. CVS: S1 and S2 present, regular. ABDOMEN: Soft, nontender. Bowel sounds present. No guarding. No rigidity. No rebound tenderness noted. RISK OFFICER: Alert, awake, oriented x2 to 3. No focal deficits noted. EXTREMITIES: No edema. Palpable peripheral pulses. MEDICATIONS: Include: DuoNeb, allopurinol 100 mg daily, Norvasc 10 mg daily, aspirin 325 mg daily, azithromycin 500 mg IV daily, Coreg 12.5 mg p.o. every 12 hours, D5 normal saline at 70 mL an hour, subcu heparin, INH 300 mg p.o. daily, Dilantin 100 mg p.o. t.i.d., Zosyn 2.25 g daily every 6 hours, Crestor 20 mg p.o. at bedtime. LABORATORY DATA: Labs from today: WBC 14.2, hemoglobin 9.4, hematocrit 29.2, platelets 423. Sodium 140, potassium 3.6, chloride 111, bicarb 20, BUN 55, creatinine 3.1, glucose 142, calcium 8.2. AST 98, AST 65, alkaline phosphatase 206, total protein 6.5, albumin 2.9. Blood cultures and urine cultures so far negative. ASSESSMENT AND PLAN: Elderly male with history of hypertension, hyperlipidemia, history of latent tuberculosis, seizure disorder, chronic kidney disease, transient ischemic attack, admitted for pneumonia, possible sepsis, and acute kidney injury on chronic kidney disease. I will continue with current antibiotics and the nebulizer treatment. The patient's blood pressure is slightly high. We will restart his clonidine. We will monitor his blood pressure closely. We will adjust his medication as needed. The patient is on multiple blood pressure medications. We will adjust the medication as needed. We will continue with gentle hydration. We will add further recommendations. Repeat labs in a.m. Follow up with chest x-ray. Judie Ramirez MD
--- NOTE | 2018-09-15 01:04 | PN ---
DATE: 09/14/2018 LOCATION: Room 651, bed A. REQUESTING PHYSICIAN: Judie Ramirez MD REASON FOR FOLLOWUP: Acute renal failure, chronic kidney disease and pneumonia. SUBJECTIVE: Mr. Wells is a 73-year-old elderly male with a past medical history significant for hypertension, chronic kidney disease, seizure disorder, TIA, questionable diabetes, and emphysema, smoker who was admitted with chief complaints of feeling weak, tired, cough, labored breathing and found to have a large left lung pneumonia, on IV antibiotic. The patient is resting comfortably without oxygen. The patient is eager to go home, not in distress. OBJECTIVE: VITAL SIGNS: As follows, blood pressure 184/69, pulse 76, respiration 20, temperature 98.1, saturation 96%. Height 5 feet 10 inches, weight is 182 pounds. GENERAL: Mr. Wells is 73-year-old elderly male, moderately built, moderate nourished, not in distress. HEENT: Pupils normal, reactive to light and accommodation. Conjunctivae pink. Sclerae anicteric. Tongue is moist and trachea is midline. LUNGS: Symmetric on both sides. Decreased breath sounds on the left side. Normal breath sounds on the right side. CVS: S1 and S2 audible. No murmur or gallop. ABDOMEN: Normal in appearance, soft, tympanitic. No guarding or rigidity. No hepatosplenomegaly. SKIP OPERATOR: The patient is alert, awake and oriented x2. Sensory and motor system is within normal limits. Cranial nerves II-XII grossly intact. EXTREMITIES: No cyanosis, no clubbing, no edema. CURRENT MEDICATIONS: Include as follows, aspirin 325 mg p.o. daily and Catapres 0.2 mg p.o. every 8 hours, Coreg 12.5 mg p.o. every 12 hours, Crestor 20 mg p.o. at bedtime, Dilantin 100 mg p.o. t.i.d., DuoNeb inhaler, Zithromax 500 mg IV piggyback every 24 hours, Zosyn 2.25 g every 6 hours, and allopurinol 100 mg p.o. daily. LABORATORY DATA: Include as follows as of 09/14/2018, WBC 14.2, hemoglobin 9.4, hematocrit is 29.2, platelets 423. Sodium 140, potassium 3.6, chloride 111, CO2 of 20, BUN 55, creatinine 3.1, glucose 135, calcium 8.2, phosphorus is not done and total bili 0.5. AST 98, ALT 65, alkaline phosphatase 206, total protein 6.5, albumin is 2.9. Blood culture x2 negative day 2 as of 09/11/2018 and urine culture is negative from 09/11/2018. ASSESSMENT AND PLAN: In summary, Mr. Wells is a 73-year-old elderly male with hypertension, hyperlipidemia, seizure disorder, transient ischemic attack, smoker and emphysema was admitted with cough, weakness and labored breathing and found to have pneumonia on the left side, on intravenous antibiotics. 1. Renal failure, acute on chronic kidney disease versus chronic kidney disease. Continue gentle intravenous hydration. 2. Hypertension. I agree to restart his medication clonidine 0.2 mg p.o. every 8 hours and may need to continue Norvasc or Procardia XL. Continue Coreg 12.5 mg p.o. every 12 hours. 3. Pneumonia. Continue antibiotics and Zosyn and azithromycin. Repeat BMP in a.m. We will follow with you. Thank you for allowing me to participate in your patient's care. Wai Ramirez MD
[2018-09-15] MEDS: Albuterol-Ipratrop 3 mg / 0.5 (3 ml) UD INH SCH ×4 (03:06→20:59)
[2018-09-15] MEDS: Piperacill/Tazo 2.25gm in Dex 2.25 GM/50 ML BAG IVPB SCH ×4 (04:53→21:53)
[2018-09-15 06:34] LABS: BASO % 0.3 % (0.0-2.0); EOS # 0.3 K/uL (0.0-0.7); HEMOGLOBIN 9.4 g/dL (12.0-18.0); LYMPH % 14.1 % (20.0-40.0); MEAN CELL VOLUME 85.6 fL (80.0-94.0); MEAN CORPUSCULAR HEMOGLOBIN 27.7 pg (27.0-31.0); MEAN CORPUSCULAR HGB CONC 32.3 g/dL (33.0-37.0); MEAN PLATELET VOLUME 7.9 fL (7.2-11.7); MONO # 1.3 K/uL (0.0-0.8); NEUT # 10.5 K/uL (1.8-7.0); NEUT % 74.6 % (50.0-75.0); RBC 3.4 Mil/uL (4.40-5.90); RED CELL DISTRIBUTION WIDTH 14.6 % (11.5-14.5); WHITE BLOOD COUNT 14.1 K/uL (4.8-10.8)
[2018-09-15 06:53] LABS: ALB/GLOB RATIO 0.8 (1.0-2.1); CALCIUM 8.4 mg/dl (8.6-10.4)
[2018-09-15] MEDS: (Novolog) Insulin Aspart, Recombinant 100 u/ml 10 ml vial SC SCH ×4 (08:12→21:29)
--- NOTE | 2018-09-15 10:52 | CP.PCM.PN ---
Subjective - Date & Time of Evaluation Date of Evaluation: 09/15/18 Time of Evaluation: 10:52 - Subjective Subjective: pt is seen and examined, follow up consult is dictated #[id number] Objective - Vital Signs/Intake and Output Vital Signs (last 24 hours): Temp Pulse Resp BP Pulse Ox 97.9 F 78 20 184/80 H 98 09/15/18 07:00 09/15/18 09:15 09/15/18 07:00 09/15/18 07:00 09/15/18 07:00 Intake and Output: 09/15/18 09/15/18 06:59 18:59 Intake Total 610 Output Total 1999 Balance -1390 - Medications Medications: Current Medications Albuterol/Ipratropium (Duoneb 3 Mg/0.5 Mg (3 Ml) Ud) 3 ml INH RQ6 [facility] Last Admin: 09/15/18 07:05 Dose: 3 ml Allopurinol (Zyloprim) 100 mg PO DAILY [facility] Last Admin: 09/15/18 10:10 Dose: 100 mg Aspirin (Aspirin) 325 mg PO DAILY [facility] Last Admin: 09/15/18 10:10 Dose: 325 mg Carvedilol (Coreg) 12.5 mg PO Q12 [facility] Last Admin: 09/15/18 10:08 Dose: Not Given Clonidine HCl (Catapres) 0.2 mg PO Q8H [facility] Last Admin: 09/15/18 10:08 Dose: Not Given Heparin Sodium (Porcine) (Heparin) 5,000 units SC Q8 [facility] Last Admin: 09/15/18 05:00 Dose: 5,000 units Piperacillin Sod/Tazobactam Sod (Zosyn 2.25 Gm Iv Premix) 2.25 gm in 50 mls @ 100 mls/hr IVPB Q6H [facility]; Protocol Last Admin: 09/15/18 10:09 Dose: 100 mls/hr Azithromycin (Zithromax 500mg In Ns Addvantage) 500 mg in 250 mls @ 167 mls/hr IVPB Q24H [facility]; Protocol Last Admin: 09/14/18 18:00 Dose: 167 mls/hr Insulin Aspart (Novolog) 0 unit SC ACHS [facility]; Protocol Last Admin: 09/15/18 08:12 Dose: Not Given Phenytoin Sodium (Dilantin) 100 mg PO TID [facility] Last Admin: 09/15/18 10:10 Dose: 100 mg Rosuvastatin Calcium (Crestor) 20 mg PO HS [facility] Last Admin: 09/14/18 22:24 Dose: 20 mg - Labs Labs: 09/15/18 06:23 09/15/18 06:23 PT 13.6 SECONDS (9.7-12.2) H 09/11/18 21:50 INR 1.2 09/11/18 21:50 APTT 33 SECONDS (21-34) 09/11/18 21:50
--- NOTE | 2018-09-15 11:22 | CP.PCM.PN ---
Subjective - Date & Time of Evaluation Date of Evaluation: 09/15/18 Time of Evaluation: 11:22 - Subjective Subjective: Progress note dictated #[id number] Objective - Vital Signs/Intake and Output Vital Signs (last 24 hours): Temp Pulse Resp BP Pulse Ox 97.9 F 78 20 186/74 H 98 09/15/18 07:00 09/15/18 09:15 09/15/18 07:00 09/15/18 11:00 09/15/18 07:00 Intake and Output: 09/15/18 09/15/18 06:59 18:59 Intake Total 610 Output Total 1999 Balance -1390 - Medications Medications: Current Medications Albuterol/Ipratropium (Duoneb 3 Mg/0.5 Mg (3 Ml) Ud) 3 ml INH RQ6 [facility] Last Admin: 09/15/18 07:05 Dose: 3 ml Allopurinol (Zyloprim) 100 mg PO DAILY [facility] Last Admin: 09/15/18 10:10 Dose: 100 mg Aspirin (Aspirin) 325 mg PO DAILY [facility] Last Admin: 09/15/18 10:10 Dose: 325 mg Carvedilol (Coreg) 12.5 mg PO Q12 [facility] Last Admin: 09/15/18 11:00 Dose: 12.5 mg Clonidine HCl (Catapres) 0.2 mg PO Q8H [facility] Last Admin: 09/15/18 11:01 Dose: 0.2 mg Heparin Sodium (Porcine) (Heparin) 5,000 units SC Q8 [facility] Last Admin: 09/15/18 05:00 Dose: 5,000 units Piperacillin Sod/Tazobactam Sod (Zosyn 2.25 Gm Iv Premix) 2.25 gm in 50 mls @ 100 mls/hr IVPB Q6H [facility]; Protocol Last Admin: 09/15/18 10:09 Dose: 100 mls/hr Azithromycin (Zithromax 500mg In Ns Addvantage) 500 mg in 250 mls @ 167 mls/hr IVPB Q24H [facility]; Protocol Last Admin: 09/14/18 18:00 Dose: 167 mls/hr Insulin Aspart (Novolog) 0 unit SC ACHS [facility]; Protocol Last Admin: 09/15/18 08:12 Dose: Not Given Phenytoin Sodium (Dilantin) 100 mg PO TID [facility] Last Admin: 09/15/18 10:10 Dose: 100 mg Rosuvastatin Calcium (Crestor) 20 mg PO HS [facility] Last Admin: 09/14/18 22:24 Dose: 20 mg - Labs Labs: 09/15/18 06:23 09/15/18 06:23 PT 13.6 SECONDS (9.7-12.2) H 09/11/18 21:50 INR 1.2 09/11/18 21:50 APTT 33 SECONDS (21-34) 09/11/18 21:50
--- NOTE | 2018-09-15 11:30 | HP ---
CHIEF COMPLAINT: Progressive worsening of cough with sputum and shortness of breath over the past two to three days. HISTORY OF PRESENT ILLNESS: Mr. Wells is a 73-year-old male with past medical history of hypertension, hyperlipidemia, seizure disorder, history of brain aneurysm, prior CVA, CKD, diabetes mellitus, peripheral arterial disease, status post right leg stenting, gout, who has been following up with doctors from [facility], came into the emergency room, brought by the patient's family for a 2-day history of progressive worsening of shortness of breath associated with cough and sputum production. He was not even able to walk at home yesterday without getting short of breath. Denied any headache or dizziness. Denied any chest pain. Denied any nausea or vomiting. Denied any abdominal pain, diarrhea, or constipation. Denied any urinary complaints. Denied any leg pains or leg cramps. The patient underwent right leg bypass surgery in 2010, during which time, he received hemodialysis, and the patient was again admitted to the hospital in 2018, and he claims that he may have received four to five dialysis treatments, and after that, he was never on dialysis since then. PAST MEDICAL HISTORY: Hypertension, diabetes mellitus, CAD, peripheral arterial disease with right leg bypass surgery, hyperlipidemia, gout, seizure, and chronic kidney disease. PAST SURGICAL HISTORY: Underwent bypass surgery to the right leg. FAMILY HISTORY: Diabetes mellitus, hypertension, and coronary artery disease in both parents and his brothers. PERSONAL HISTORY: He lives with daughter, having four children. He is a . SOCIAL HISTORY: He quit smoking about eight years ago, smoked one pack per day. Denies any alcohol or any other drug abuse. ALLERGIES: HE IS ALLERGIC TO LISINOPRIL. HOME MEDICATIONS: Include hydralazine 60 mg p.o. twice a day, Exelon patch, phenytoin 100 mg p.o. t.i.d., Crestor 20 mg p.o. at bedtime, nifedipine ER 60 mg p.o. twice a day, clonidine 0.2 mg p.o. every 8 hours, vitamin D3, atorvastatin 40 mg p.o. at bedtime, aspirin 325 mg daily, allopurinol 100 mg daily, INH 300 mg p.o. daily, Hygroton 25 mg p.o. daily, clonidine 0.1 mg p.o. every 7 days, multivitamin, and Coreg 12.5 mg p.o. every 12 hours. REVIEW OF SYSTEMS: As described in history of present illness. All other systems were reviewed and were found to be negative. PHYSICAL EXAMINATION: GENERAL: An elderly male, lying in bed, in no acute distress. VITAL SIGNS: Blood pressure 147/77, pulse 80, respirations 20, temperature 98 degrees Fahrenheit, and O2 sat is 97% on 2 L nasal cannula. HEENT: Pupils are equal, round, reacting to light and accommodation. Extraocular muscles intact. No icterus. No pallor. No oral thrush. No pharyngeal congestion. NECK: Supple. No JVD. LUNGS: Bilateral vesicular breath sounds. Bilateral basal rhonchi heard. Occasional wheezing heard. CARDIOVASCULAR SYSTEM: S1, S2 present and regular. ABDOMEN: Soft, nontender. Bowel sounds present. No guarding, no rigidity, and no rebound tenderness noted. GUEST EXPERIENCE MANAGER: Alert, awake, and oriented x3. No focal deficits noted. EXTREMITIES: No edema. Palpable peripheral pulses. LABORATORY DATA: Labs done from the ED: WBC 21.7, hemoglobin 11.6, hematocrit 35.7, platelets 369, PT 13.6, INR 1.2, PTT 33. Sodium 133, potassium 4.3, chloride 100, bicarb 18, BUN 72, creatinine 3.3, glucose 135, hemoglobin A1C is 6, calcium 9, phosphorus 5.6, magnesium 23, total bilirubin 1.4, AST 134, ALT 55, alkaline phosphatase 185, C-reactive protein 267, proBNP at 71, protein 8.8, albumin 4.1, triglycerides 151, cholesterol 105, LDL 34, HDL 14, procalcitonin 25.5. UA: Specific gravity 1.02, pH 5, protein 1+, blood 2+, rbc 22. Influenza negative. Legionella negative. Mycoplasma negative. IMAGING DATA: Chest x-ray done from ED consistent with multifocal pneumonia in the left lung, worse in the lower lobes, small left pleural effusion. EKG consistent with normal sinus rhythm at 98 beats per minute. Chest CT shows left upper lobe and left lower lobe infiltrates, trace left pleural effusion, centrilobular pulmonary emphysema, likely pneumonia. ASSESSMENT: An elderly male with history of hypertension, coronary artery disease, peripheral arterial disease with right leg bypass, gout, hyperlipidemia, and seizure disorder, who has been following up with doctors from [facility], admitted for progressive worsening of cough with sputum production and progressive worsening of shortness of breath. In the emergency department, the patient was found to be having abnormal chest x-ray with elevated laboratory data, and the patient is being admitted for further evaluation and management. 1. Right lobe pneumonia. 2. Possible sepsis from pneumonia with elevated white blood cell count and lactate and procalcitonin and C-reactive protein levels. 3. Acute kidney injury on chronic kidney disease. His baseline from this hospital in 2016 was 2.2 to 1.8. Abnormal liver function tests, questionable etiology. 4. History of peripheral arterial disease. 5. History of hypertension. 6. History of hyperlipidemia. 7. History of seizure disorder. 8. History of gout. PLAN: The patient is being admitted to telemetry. We will start the patient on Zosyn. The patient received cefepime in the ED and Zithromax in the ED. We will give nebulizer treatments. We will obtain pulmonary evaluation and ID evaluation. His renal function is slightly better this morning after hydration. We will continue with gentle hydration. We will obtain Renal consult. For uncontrolled hypertension, we will restart his home medications. The patient is on multiple medications. We will restart Dilantin. Unclear why the patient is on INH. The patient was unable to explain. We will try to contact [facility] for further information. We will give DVT and GI prophylaxes. We will add further recommendation as his clinical course progresses. Judie Ramirez MD
--- NOTE | 2018-09-15 11:46 | RAD ---
Date of service: 09/15/2018 HISTORY: pneumonia COMPARISON: Comparison chest 09/11/2018 FINDINGS: LUNGS: Patchy opacities seen throughout the left mid to lower lung field consistent with patient's history of pneumonia. Questionable small assess sided effusion. Mild right basilar atelectasis. PLEURA: As above. No pneumothorax apparent. CARDIOVASCULAR: No aortic atherosclerotic calcification present. Heart size borderline/mildly enlarged.. No pulmonary vascular congestion. OSSEOUS STRUCTURES: No significant abnormalities. VISUALIZED UPPER ABDOMEN: Normal. OTHER FINDINGS: None. IMPRESSION: Patchy opacities seen throughout the left mid to lower lung field consistent with patient's history of pneumonia. Questionable small assess sided effusion. Mild right basilar atelectasis.
--- NOTE | 2018-09-15 13:03 | CP.PCM.PN ---
Subjective - Date & Time of Evaluation Date of Evaluation: 09/15/18 Time of Evaluation: 09:00 - Subjective Subjective: more comfortable afebrile Objective - Vital Signs/Intake and Output Vital Signs (last 24 hours): Temp Pulse Resp BP Pulse Ox 97.9 F 78 20 186/74 H 98 09/15/18 07:00 09/15/18 09:15 09/15/18 07:00 09/15/18 11:00 09/15/18 07:00 Intake and Output: 09/15/18 09/15/18 06:59 18:59 Intake Total 610 Output Total 1999 Balance -1390 - Medications Medications: Current Medications Albuterol/Ipratropium (Duoneb 3 Mg/0.5 Mg (3 Ml) Ud) 3 ml INH RQ6 [facility] Last Admin: 09/15/18 07:05 Dose: 3 ml Allopurinol (Zyloprim) 100 mg PO DAILY [facility] Last Admin: 09/15/18 10:10 Dose: 100 mg Aspirin (Aspirin) 325 mg PO DAILY [facility] Last Admin: 09/15/18 10:10 Dose: 325 mg Carvedilol (Coreg) 12.5 mg PO Q12 [facility] Last Admin: 09/15/18 11:00 Dose: 12.5 mg Clonidine HCl (Catapres) 0.2 mg PO Q8H [facility] Last Admin: 09/15/18 11:01 Dose: 0.2 mg Clonidine HCl (Catapres Tts1 0.1 Mg/24 Hr) 1 patch TD Q7D@1000 [facility] Heparin Sodium (Porcine) (Heparin) 5,000 units SC Q8 [facility] Last Admin: 09/15/18 05:00 Dose: 5,000 units Hydralazine HCl (Apresoline) 50 mg PO BID [facility] Piperacillin Sod/Tazobactam Sod (Zosyn 2.25 Gm Iv Premix) 2.25 gm in 50 mls @ 100 mls/hr IVPB Q6H [facility]; Protocol Last Admin: 09/15/18 10:09 Dose: 100 mls/hr Azithromycin (Zithromax 500mg In Ns Addvantage) 500 mg in 250 mls @ 167 mls/hr IVPB Q24H [facility]; Protocol Last Admin: 09/14/18 18:00 Dose: 167 mls/hr Insulin Aspart (Novolog) 0 unit SC ACHS [facility]; Protocol Last Admin: 09/15/18 08:12 Dose: Not Given Phenytoin Sodium (Dilantin) 100 mg PO TID [facility] Last Admin: 09/15/18 10:10 Dose: 100 mg Rosuvastatin Calcium (Crestor) 10 mg PO HS [facility] - Labs Labs: 09/15/18 06:23 09/15/18 06:23 PT 13.6 SECONDS (9.7-12.2) H 09/11/18 21:50 INR 1.2 09/11/18 21:50 APTT 33 SECONDS (21-34) 09/11/18 21:50 - Constitutional Appears: Non-toxic, Cachectic, Chronically Ill - Head Exam Head Exam: NORMOCEPHALIC - Eye Exam Eye Exam: absent: Scleral icterus - ENT Exam ENT Exam: Mucous Membranes Dry, Normal External Ear Exam - Neck Exam Neck Exam: absent: Thyromegaly - Respiratory Exam Respiratory Exam: Decreased Breath Sounds, Prolonged Expiratory Phase, Rhonchi - Cardiovascular Exam Cardiovascular Exam: REGULAR RHYTHM, +S1, +S2 - GI/Abdominal Exam GI & Abdominal Exam: Distended, Soft. absent: Tenderness - Rectal Exam Rectal Exam: Deferred - Exam Exam: NORMAL INSPECTION - Extremities Exam Extremities Exam: Pedal Edema - Back Exam Back Exam: absent: CVA tenderness (L), CVA tenderness (R) - Neurological Exam Neurological Exam: Awake - Psychiatric Exam Psychiatric exam: Depressed - Skin Skin Exam: Dry Assessment and Plan (1) Acute on chronic renal insufficiency Status: Acute (2) Pneumonia Status: Acute (3) CKD (chronic kidney disease) stage 4, GFR 15-29 ml/min Status: Chronic (4) Diabetes mellitus Status: Chronic (5) Hyperlipidemia Status: Chronic (6) Hypertension Status: Chronic - Assessment and Plan (Free Text) Assessment: resolving sepsis / pneumonia improving slowly cultures negative thus far
--- NOTE | 2018-09-15 15:37 | CP.PCM.PN ---
<Brian Mendosa - Last Filed: 09/15/18 15:32> Subjective - Date & Time of Evaluation Date of Evaluation: 09/15/18 Time of Evaluation: 11:45 - Subjective Subjective: Pulmonology note for Dr. Almazan Patient seen and examined this morning at bedside. No acute events overnight. Afebrile. Patient is breathing much better and is hopeful to go home soon. Saturating at 98% on room air. Denies fevers, chills, chest pain or shortness of breath. Exam General: no acute distress Cardio: regular rate and rhythm, normal S1/S2 Respiratory: CTA b/l, no wheezing/rales/rhonchi Extremities: no edema b/l Psych: AAOx3, normal speech Objective - Vital Signs/Intake and Output Vital Signs (last 24 hours): Temp Pulse Resp BP Pulse Ox 97.9 F 78 20 186/74 H 98 09/15/18 07:00 09/15/18 09:15 09/15/18 07:00 09/15/18 11:00 09/15/18 07:00 Intake and Output: 09/15/18 09/15/18 06:59 18:59 Intake Total 610 Output Total 2000 Balance -1390 - Medications Medications: Current Medications Albuterol/Ipratropium (Duoneb 3 Mg/0.5 Mg (3 Ml) Ud) 3 ml INH RQ6 [facility] Last Admin: 09/15/18 13:59 Dose: Not Given Allopurinol (Zyloprim) 100 mg PO DAILY [facility] Last Admin: 09/15/18 10:10 Dose: 100 mg Aspirin (Aspirin) 325 mg PO DAILY [facility] Last Admin: 09/15/18 10:10 Dose: 325 mg Carvedilol (Coreg) 12.5 mg PO Q12 [facility] Last Admin: 09/15/18 11:00 Dose: 12.5 mg Clonidine HCl (Catapres) 0.2 mg PO Q8H [facility] Last Admin: 09/15/18 11:01 Dose: 0.2 mg Clonidine HCl (Catapres Tts1 0.1 Mg/24 Hr) 1 patch TD Q7D@1000 [facility] Last Admin: 09/15/18 15:05 Dose: 1 patch Heparin Sodium (Porcine) (Heparin) 5,000 units SC Q8 [facility] Last Admin: 09/15/18 13:27 Dose: Not Given Hydralazine HCl (Apresoline) 50 mg PO BID [facility] Last Admin: 09/15/18 13:39 Dose: 50 mg Piperacillin Sod/Tazobactam Sod (Zosyn 2.25 Gm Iv Premix) 2.25 gm in 50 mls @ 100 mls/hr IVPB Q6H [facility]; Protocol Last Admin: 09/15/18 10:09 Dose: 100 mls/hr Azithromycin (Zithromax 500mg In Ns Addvantage) 500 mg in 250 mls @ 167 mls/hr IVPB Q24H [facility]; Protocol Last Admin: 09/14/18 18:00 Dose: 167 mls/hr Insulin Aspart (Novolog) 0 unit SC ACHS [facility]; Protocol Last Admin: 09/15/18 11:40 Dose: Not Given Phenytoin Sodium (Dilantin) 100 mg PO TID [facility] Last Admin: 09/15/18 13:39 Dose: 100 mg Rosuvastatin Calcium (Crestor) 10 mg PO HS [facility] - Labs Labs: 09/15/18 06:23 09/15/18 06:23 PT 13.6 SECONDS (9.7-12.2) H 09/11/18 21:50 INR 1.2 09/11/18 21:50 APTT 33 SECONDS (21-34) 09/11/18 21:50 Assessment and Plan (1) Pneumonia Assessment & Plan: Repeat CXR shows improvement of infiltrate Stable for discharge home Discharge home on PO Augmentin Status: Acute (2) Acute on chronic renal insufficiency Status: Acute <John Almazan - Last Filed: 09/15/18 18:14> Objective - Vital Signs/Intake and Output Vital Signs (last 24 hours): Temp Pulse Resp BP Pulse Ox 97.8 F 60 20 184/80 H 96 09/15/18 15:10 09/15/18 15:10 09/15/18 15:10 09/15/18 15:10 09/15/18 15:10 Intake and Output: 09/15/18 09/15/18 06:59 18:59 Intake Total 610 Output Total 1999 Balance -1390 - Medications Medications: Current Medications Albuterol/Ipratropium (Duoneb 3 Mg/0.5 Mg (3 Ml) Ud) 3 ml INH RQ6 [facility] Last Admin: 09/15/18 13:59 Dose: Not Given Allopurinol (Zyloprim) 100 mg PO DAILY [facility] Last Admin: 09/15/18 10:10 Dose: 100 mg Aspirin (Aspirin) 325 mg PO DAILY [facility] Last Admin: 09/15/18 10:10 Dose: 325 mg Carvedilol (Coreg) 12.5 mg PO Q12 [facility] Last Admin: 09/15/18 11:00 Dose: 12.5 mg Clonidine HCl (Catapres) 0.2 mg PO Q8H [facility] Last Admin: 09/15/18 18:03 Dose: 0.2 mg Clonidine HCl (Catapres Tts1 0.1 Mg/24 Hr) 1 patch TD Q7D@1000 [facility] Last Admin: 09/15/18 15:05 Dose: 1 patch Heparin Sodium (Porcine) (Heparin) 5,000 units SC Q8 [facility] Last Admin: 09/15/18 13:27 Dose: Not Given Hydralazine HCl (Apresoline) 50 mg PO BID [facility] Last Admin: 09/15/18 18:03 Dose: 50 mg Piperacillin Sod/Tazobactam Sod (Zosyn 2.25 Gm Iv Premix) 2.25 gm in 50 mls @ 100 mls/hr IVPB Q6H [facility]; Protocol Last Admin: 09/15/18 17:00 Dose: 100 mls/hr Azithromycin (Zithromax 500mg In Ns Addvantage) 500 mg in 250 mls @ 167 mls/hr IVPB Q24H [facility]; Protocol Last Admin: 09/15/18 18:07 Dose: 167 mls/hr Insulin Aspart (Novolog) 0 unit SC ACHS [facility]; Protocol Last Admin: 09/15/18 17:13 Dose: Not Given Phenytoin Sodium (Dilantin) 100 mg PO TID [facility] Last Admin: 09/15/18 18:03 Dose: 100 mg Rosuvastatin Calcium (Crestor) 10 mg PO HS [facility] - Labs Labs: 09/15/18 06:23 09/15/18 06:23 PT 13.6 SECONDS (9.7-12.2) H 09/11/18 21:50 INR 1.2 09/11/18 21:50 APTT 33 SECONDS (21-34) 09/11/18 21:50 Assessment and Plan (1) Pneumonia Status: Acute (2) Acute on chronic renal insufficiency Status: Acute Attending/Attestation - Attestation I have personally seen and examined this patient.: Yes I have fully participated in the care of the patient.: Yes I have reviewed all pertinent clinical information, including history, physical exam and plan: Yes Notes (Text): 09/15/18 18:14 Patient seen and examined Denies cough, denies fever chills Clinically much improved Chest x-ray reviewed
[2018-09-15] MEDS: Azithromycin 500mg/250ML NS 500 MG/250 ML BAG IVPB SCH (18:07)
[2018-09-15] MEDS: NIFEdipine 60 mg ER Tab PO SCH (21:46)
--- NOTE | 2018-09-15 23:48 | CP.PCM.PN ---
Subjective - Date & Time of Evaluation Date of Evaluation: 09/15/18 Time of Evaluation: 19:25 - Subjective Subjective: Patient seen and evaluated BP with better control Denies chest pain and dyspnea Objective - Vital Signs/Intake and Output Vital Signs (last 24 hours): Temp Pulse Resp BP Pulse Ox 98 F 75 20 186/76 H 96 09/15/18 21:00 09/15/18 21:00 09/15/18 21:00 09/15/18 21:45 09/15/18 21:00 - Medications Medications: Current Medications Albuterol/Ipratropium (Duoneb 3 Mg/0.5 Mg (3 Ml) Ud) 3 ml INH RQ6 [facility] Last Admin: 09/15/18 20:59 Dose: 3 ml Allopurinol (Zyloprim) 100 mg PO DAILY [facility] Last Admin: 09/15/18 10:10 Dose: 100 mg Aspirin (Aspirin) 325 mg PO DAILY [facility] Last Admin: 09/15/18 10:10 Dose: 325 mg Carvedilol (Coreg) 12.5 mg PO Q12 [facility] Last Admin: 09/15/18 21:45 Dose: 12.5 mg Clonidine HCl (Catapres) 0.2 mg PO Q8H [facility] Last Admin: 09/15/18 18:03 Dose: 0.2 mg Clonidine HCl (Catapres Tts1 0.1 Mg/24 Hr) 1 patch TD Q7D@1000 [facility] Last Admin: 09/15/18 15:05 Dose: 1 patch Heparin Sodium (Porcine) (Heparin) 5,000 units SC Q8 [facility] Last Admin: 09/15/18 22:59 Dose: Not Given Hydralazine HCl (Apresoline) 50 mg PO BID [facility] Last Admin: 09/15/18 18:03 Dose: 50 mg Piperacillin Sod/Tazobactam Sod (Zosyn 2.25 Gm Iv Premix) 2.25 gm in 50 mls @ 100 mls/hr IVPB Q6H [facility]; Protocol Last Admin: 09/15/18 21:53 Dose: 100 mls/hr Azithromycin (Zithromax 500mg In Ns Addvantage) 500 mg in 250 mls @ 167 mls/hr IVPB Q24H [facility]; Protocol Last Admin: 09/15/18 18:07 Dose: 167 mls/hr Insulin Aspart (Novolog) 0 unit SC ACHS [facility]; Protocol Last Admin: 09/15/18 21:29 Dose: Not Given Nifedipine (Procardia Xl) 60 mg PO Q12H [facility] Last Admin: 09/15/18 21:46 Dose: 60 mg Phenytoin Sodium (Dilantin) 100 mg PO TID [facility] Last Admin: 09/15/18 18:03 Dose: 100 mg Rosuvastatin Calcium (Crestor) 10 mg PO HS [facility] Last Admin: 09/15/18 21:45 Dose: 10 mg - Labs Labs: 09/15/18 06:23 09/15/18 06:23 PT 13.6 SECONDS (9.7-12.2) H 09/11/18 21:50 INR 1.2 09/11/18 21:50 APTT 33 SECONDS (21-34) 09/11/18 21:50
--- NOTE | 2018-09-15 23:51 | PN ---
DATE: 09/15/2018 SUBJECTIVE: The patient was seen and examined at bedside. The patient is very anxious to be discharged. This afternoon, the patient was agitated. Discussed with the patient's daughter at length who was at bedside. The patient offers no new complaints. PHYSICAL EXAMINATION: GENERAL: Elderly male, lying in bed, in no acute distress. VITAL SIGNS: Blood pressure 184/80, pulse 60, respirations 20, temperature 97.8 degrees Fahrenheit, O2 saturations 96% on room air. HEENT: Pupils are equal, round, and reacting to light and accommodation. Extraocular muscles intact. No icterus. No pallor. No oral thrush. No pharyngeal congestion. NECK: Supple. No JVD. LUNGS: Bilateral vesicular breath sounds. Bilateral basal rhonchi heard. CARDIOVASCULAR SYSTEM: S1 and S2 present, regular. ABDOMEN: Soft, nontender. Bowel sounds present. No guarding. No rigidity. No rebound tenderness noted. CENTRAL NERVOUS SYSTEM: Alert, awake, oriented times 2 to 3. No focal deficits noted. EXTREMITIES: No edema. Palpable peripheral pulses. MEDICATIONS: His medications include DuoNeb as needed, allopurinol 100 mg daily, aspirin 325 mg daily, azithromycin 500 mg IV daily, Coreg 12.5 mg p.o. every 12 hours, Catapres 0.2 mg p.o. every 8 hours, clonidine patch every week, heparin 5000 units subcu every 8 hours, hydralazine 50 mg p.o. b.i.d., phenytoin 100 mg p.o. t.i.d., Zosyn 2.25 g IV every 6 hours, Crestor 10 mg p.o. at bedtime. LABORATORY DATA: Labs from today: WBC 14.1, hemoglobin 9.4, hematocrit 29.1, platelets 451. Sodium 142, potassium 3.8, chloride 114, bicarb 20, BUN 46, creatinine 2.9, glucose 138, calcium 8.4, AST 72, ALT 59, alkaline phosphatase 201, total protein 6.9, albumin 3. Chest x-ray from this morning showed patchy opacities seen throughout the left mid and lower lung hernandez consistent with the patient's history of pneumonia, questionable small left-sided effusion, mild right basilar atelectasis. ASSESSMENT AND PLAN: Elderly male with history of hypertension, hyperlipidemia, history of latent tuberculosis, on isoniazid prophylaxis, seizure disorder, chronic kidney disease, transient ischemic attack, admitted for pneumonia, acute kidney injury, on chronic kidney disease, on intravenous antibiotics, nebulizer treatments. The patient's blood pressure is very high despite restarting all his medications. The patient was supposed to put the clonidine patch at home which was not done at home, clonidine patch reordered, hydralazine is reordered. We will restart all his home medications. We will monitor his blood pressure closely if his blood pressure is controlled, and otherwise, stable. We will plan discharging the patient home in a.m. on p.o. antibiotics. Judie Ramirez MD
[2018-09-16] MEDS: Albuterol-Ipratrop 3 mg / 0.5 (3 ml) UD INH SCH ×4 (02:00→19:30)
--- NOTE | 2018-09-16 02:23 | PN ---
DATE: 09/15/2018 FOLLOWUP RENAL CONSULTATION LOCATION: The patient is located in room 651, bed A. REQUESTED BY: Dr. Judie Ramirez MD REASON FOR FOLLOWUP: Acute renal failure, chronic kidney disease. SUBJECTIVE: Mr. Wells is a 73-year-old elderly -[place] male with a past medical history significant for hypertension; smoker; hyperlipidemia; chronic kidney disease; history of exposure with TB in the past, on INH; who was admitted with chief complaints of shortness of breath and cough and found to have lowered breathing and also left lung pneumonia. The patient is on IV antibiotics. The patient is feeling much better, not in acute distress. The patient is eager to go home. No chest pain or palpitation. PHYSICAL EXAMINATION VITAL SIGNS: This morning, blood pressure 184/80, pulse 78, respirations about 20, temperature 97.9, saturation 98%. Height 5 feet 10 inches, weight is 180 pounds. GENERAL: Mr. Wells is a 73-year-old elderly male, moderately built, moderately nourished, not in distress, not on any oxygen. HEENT: Pupils are normal, reacting to light and accommodation. Conjunctivae pink. Sclerae anicteric. Tongue is moist. NECK: Trachea is midline. LUNGS: Symmetric on both sides. Bilateral breath sounds present. Occasional left basal crackles present. CARDIOVASCULAR SYSTEM: [place] at the fifth intercostal space, midclavicular line. S1 and S2 audible. No murmur, no gallop. ABDOMEN: Normal in appearance, soft, tympanitic. No guarding. No rigidity. No hepatosplenomegaly. CENTRAL NERVOUS SYSTEM: The patient is alert, awake, oriented x2 to x3. Sensory and motor system is within normal limits. EXTREMITIES: No cyanosis, no clubbing, no edema. MEDICATIONS: His current medications include as follows: Hydralazine 50 mg p.o. b.i.d., aspirin 325 mg daily, clonidine 0.2 mg p.o. every 8 hours, clonidine patch TTS-1 every 7 days, Coreg 12.5 mg every 12 hours, Crestor 10 mg, Dilantin 100 mg p.o. t.i.d., DuoNeb inhaler, subcu heparin, nifedipine 60 mg p.o. every 12 hours, Zosyn 2.25 g every 6 hours, allopurinol 100 mg p.o. daily, azithromycin 500 mg IV piggyback daily. LABORATORY DATA: Include as follows: As of 09/15/2018, WBC 14.1, hemoglobin 9.4, hematocrit 29.1, platelets of 451. Sodium 142, potassium 3.8, chloride 114, CO2 of 20, BUN 46, creatinine 2.9, glucose 131, calcium 8.4. Total bili 0.4, AST 72, ALT 59, alkaline phosphatase 201, total protein 6.9, albumin is 3. Blood culture and urine culture are negative as of 09/11/2018. ASSESSMENT AND PLAN: In summary, Mr. Wells is a 73-year-old elderly male with a history of hypertension, seizures, smoker, emphysema, chronic kidney disease, was admitted with shortness of breath and cough and being treated for pneumonia of left lung. 1. Acute renal failure on chronic kidney disease. Renal function is slowly improving. Continue gentle intravenous hydration. 2. Pneumonia. Continue antibiotics, Zosyn and Zithromax. 3. Uncontrolled hypertension. Continue hydralazine 50 mg p.o. b.i.d. and continue Catapres. Consider to change Catapres to TTS-3 instead of Catapres TTS-1 and Catapres 0.2 mg p.o. every 8 hours. Consider to switch it to TTS-3 weekly and Coreg 12.5 mg p.o. every 12 hours and Procardia XL 60 mg p.o. every 12 hours. We will follow with you. Thank you for allowing me to participate in your patient's care. Wai Ramirez MD
[2018-09-16] MEDS: Piperacill/Tazo 2.25gm in Dex 2.25 GM/50 ML BAG IVPB SCH ×4 (04:11→21:26)
[2018-09-16] MEDS: (Novolog) Insulin Aspart, Recombinant 100 u/ml 10 ml vial SC SCH ×4 (08:00→21:24)
[2018-09-16] MEDS: NIFEdipine 60 mg ER Tab PO SCH ×2 (10:56→21:25)
--- NOTE | 2018-09-16 11:21 | CP.PCM.PN ---
Subjective - Date & Time of Evaluation Date of Evaluation: 09/16/18 Time of Evaluation: 11:21 - Subjective Subjective: Progress note dictated #[id number] Objective - Vital Signs/Intake and Output Vital Signs (last 24 hours): Temp Pulse Resp BP Pulse Ox 98.9 F 71 18 167/79 H 100 09/16/18 07:00 09/16/18 08:33 09/16/18 07:00 09/16/18 10:57 09/16/18 07:00 Intake and Output: 09/16/18 09/16/18 06:59 18:59 Intake Total 80 Balance 80 - Medications Medications: Current Medications Albuterol/Ipratropium (Duoneb 3 Mg/0.5 Mg (3 Ml) Ud) 3 ml INH RQ6 [facility] Last Admin: 09/16/18 07:15 Dose: 3 ml Allopurinol (Zyloprim) 100 mg PO DAILY [facility] Last Admin: 09/16/18 10:56 Dose: 100 mg Aspirin (Aspirin) 325 mg PO DAILY [facility] Last Admin: 09/16/18 10:56 Dose: 325 mg Carvedilol (Coreg) 12.5 mg PO Q12 [facility] Last Admin: 09/16/18 10:57 Dose: 12.5 mg Clonidine HCl (Catapres) 0.2 mg PO Q8H [facility] Last Admin: 09/16/18 10:56 Dose: 0.2 mg Clonidine HCl (Catapres Tts1 0.1 Mg/24 Hr) 1 patch TD Q7D@1000 [facility] Last Admin: 09/15/18 15:05 Dose: 1 patch Heparin Sodium (Porcine) (Heparin) 5,000 units SC Q8 [facility] Last Admin: 09/16/18 05:10 Dose: Not Given Hydralazine HCl (Apresoline) 50 mg PO BID [facility] Last Admin: 09/16/18 10:56 Dose: 50 mg Piperacillin Sod/Tazobactam Sod (Zosyn 2.25 Gm Iv Premix) 2.25 gm in 50 mls @ 100 mls/hr IVPB Q6H [facility]; Protocol Last Admin: 09/16/18 10:55 Dose: 100 mls/hr Azithromycin (Zithromax 500mg In Ns Addvantage) 500 mg in 250 mls @ 167 mls/hr IVPB Q24H [facility]; Protocol Last Admin: 09/15/18 18:07 Dose: 167 mls/hr Insulin Aspart (Novolog) 0 unit SC ACHS [facility]; Protocol Last Admin: 09/16/18 08:00 Dose: Not Given Nifedipine (Procardia Xl) 60 mg PO Q12H [facility] Last Admin: 09/16/18 10:56 Dose: 60 mg Phenytoin Sodium (Dilantin) 100 mg PO TID [facility] Last Admin: 09/16/18 10:56 Dose: 100 mg Rosuvastatin Calcium (Crestor) 10 mg PO HS [facility] Last Admin: 09/15/18 21:45 Dose: 10 mg - Labs Labs: 09/15/18 06:23 09/15/18 06:23 PT 13.6 SECONDS (9.7-12.2) H 09/11/18 21:50 INR 1.2 09/11/18 21:50 APTT 33 SECONDS (21-34) 09/11/18 21:50
--- NOTE | 2018-09-16 12:18 | CP.PCM.PN ---
Subjective - Date & Time of Evaluation Date of Evaluation: 09/16/18 Time of Evaluation: 09:00 - Subjective Subjective: less cough breathing easy no fever Objective - Vital Signs/Intake and Output Vital Signs (last 24 hours): Temp Pulse Resp BP Pulse Ox 98.9 F 71 18 167/79 H 100 09/16/18 07:00 09/16/18 08:33 09/16/18 07:00 09/16/18 10:57 09/16/18 07:00 Intake and Output: 09/16/18 09/16/18 06:59 18:59 Intake Total 80 Balance 80 - Medications Medications: Current Medications Albuterol/Ipratropium (Duoneb 3 Mg/0.5 Mg (3 Ml) Ud) 3 ml INH RQ6 [facility] Last Admin: 09/16/18 07:15 Dose: 3 ml Allopurinol (Zyloprim) 100 mg PO DAILY [facility] Last Admin: 09/16/18 10:56 Dose: 100 mg Aspirin (Aspirin) 325 mg PO DAILY [facility] Last Admin: 09/16/18 10:56 Dose: 325 mg Carvedilol (Coreg) 12.5 mg PO Q12 [facility] Last Admin: 09/16/18 10:57 Dose: 12.5 mg Clonidine HCl (Catapres) 0.2 mg PO Q8H [facility] Last Admin: 09/16/18 10:56 Dose: 0.2 mg Clonidine HCl (Catapres Tts1 0.1 Mg/24 Hr) 1 patch TD Q7D@1000 [facility] Last Admin: 09/15/18 15:05 Dose: 1 patch Heparin Sodium (Porcine) (Heparin) 5,000 units SC Q8 [facility] Last Admin: 09/16/18 05:10 Dose: Not Given Hydralazine HCl (Apresoline) 50 mg PO BID [facility] Last Admin: 09/16/18 10:56 Dose: 50 mg Piperacillin Sod/Tazobactam Sod (Zosyn 2.25 Gm Iv Premix) 2.25 gm in 50 mls @ 100 mls/hr IVPB Q6H [facility]; Protocol Last Admin: 09/16/18 10:55 Dose: 100 mls/hr Azithromycin (Zithromax 500mg In Ns Addvantage) 500 mg in 250 mls @ 167 mls/hr IVPB Q24H [facility]; Protocol Last Admin: 09/15/18 18:07 Dose: 167 mls/hr Insulin Aspart (Novolog) 0 unit SC ACHS [facility]; Protocol Last Admin: 09/16/18 08:00 Dose: Not Given Nifedipine (Procardia Xl) 60 mg PO Q12H [facility] Last Admin: 09/16/18 10:56 Dose: 60 mg Phenytoin Sodium (Dilantin) 100 mg PO TID [facility] Last Admin: 09/16/18 10:56 Dose: 100 mg Rosuvastatin Calcium (Crestor) 10 mg PO HS [facility] Last Admin: 09/15/18 21:45 Dose: 10 mg - Labs Labs: 09/15/18 06:23 09/15/18 06:23 PT 13.6 SECONDS (9.7-12.2) H 09/11/18 21:50 INR 1.2 09/11/18 21:50 APTT 33 SECONDS (21-34) 09/11/18 21:50 - Constitutional Appears: Non-toxic, Cachectic, Chronically Ill - Head Exam Head Exam: NORMOCEPHALIC - Eye Exam Eye Exam: absent: Scleral icterus - ENT Exam ENT Exam: Mucous Membranes Dry - Neck Exam Neck Exam: absent: Lymphadenopathy - Respiratory Exam Respiratory Exam: Decreased Breath Sounds, Rhonchi - Cardiovascular Exam Cardiovascular Exam: REGULAR RHYTHM, +S1, +S2 - GI/Abdominal Exam GI & Abdominal Exam: Distended, Soft. absent: Tenderness - Rectal Exam Rectal Exam: Deferred - Exam Exam: NORMAL INSPECTION - Extremities Exam Extremities Exam: absent: Pedal Edema - Back Exam Back Exam: absent: CVA tenderness (L), CVA tenderness (R) - Neurological Exam Neurological Exam: Alert, Awake, Oriented x3 Assessment and Plan (1) Acute on chronic renal insufficiency Status: Acute (2) Pneumonia Status: Acute (3) CKD (chronic kidney disease) stage 4, GFR 15-29 ml/min Status: Chronic (4) Diabetes mellitus Status: Chronic (5) Hyperlipidemia Status: Chronic (6) Hypertension Status: Chronic - Assessment and Plan (Free Text) Assessment: cont rx pneumonia all cultures neg to complete min 7 days iv rx
--- NOTE | 2018-09-16 12:19 | CP.PCM.PN ---
Subjective - Date & Time of Evaluation Date of Evaluation: 09/16/18 Time of Evaluation: 12:18 - Subjective Subjective: pt is seen and examined, follow up consult is dictated #[id number] Objective - Vital Signs/Intake and Output Vital Signs (last 24 hours): Temp Pulse Resp BP Pulse Ox 98.9 F 71 18 167/79 H 100 09/16/18 07:00 09/16/18 08:33 09/16/18 07:00 09/16/18 10:57 09/16/18 07:00 Intake and Output: 09/16/18 09/16/18 06:59 18:59 Intake Total 80 Balance 80 - Medications Medications: Current Medications Albuterol/Ipratropium (Duoneb 3 Mg/0.5 Mg (3 Ml) Ud) 3 ml INH RQ6 [facility] Last Admin: 09/16/18 07:15 Dose: 3 ml Allopurinol (Zyloprim) 100 mg PO DAILY [facility] Last Admin: 09/16/18 10:56 Dose: 100 mg Aspirin (Aspirin) 325 mg PO DAILY [facility] Last Admin: 09/16/18 10:56 Dose: 325 mg Carvedilol (Coreg) 12.5 mg PO Q12 [facility] Last Admin: 09/16/18 10:57 Dose: 12.5 mg Clonidine HCl (Catapres) 0.2 mg PO Q8H [facility] Last Admin: 09/16/18 10:56 Dose: 0.2 mg Clonidine HCl (Catapres Tts1 0.1 Mg/24 Hr) 1 patch TD Q7D@1000 [facility] Last Admin: 09/15/18 15:05 Dose: 1 patch Heparin Sodium (Porcine) (Heparin) 5,000 units SC Q8 [facility] Last Admin: 09/16/18 05:10 Dose: Not Given Hydralazine HCl (Apresoline) 50 mg PO BID [facility] Last Admin: 09/16/18 10:56 Dose: 50 mg Piperacillin Sod/Tazobactam Sod (Zosyn 2.25 Gm Iv Premix) 2.25 gm in 50 mls @ 100 mls/hr IVPB Q6H [facility]; Protocol Last Admin: 09/16/18 10:55 Dose: 100 mls/hr Azithromycin (Zithromax 500mg In Ns Addvantage) 500 mg in 250 mls @ 167 mls/hr IVPB Q24H [facility]; Protocol Last Admin: 09/15/18 18:07 Dose: 167 mls/hr Insulin Aspart (Novolog) 0 unit SC ACHS [facility]; Protocol Last Admin: 09/16/18 08:00 Dose: Not Given Nifedipine (Procardia Xl) 60 mg PO Q12H [facility] Last Admin: 09/16/18 10:56 Dose: 60 mg Phenytoin Sodium (Dilantin) 100 mg PO TID [facility] Last Admin: 09/16/18 10:56 Dose: 100 mg Rosuvastatin Calcium (Crestor) 10 mg PO HS [facility] Last Admin: 09/15/18 21:45 Dose: 10 mg - Labs Labs: 09/15/18 06:23 09/15/18 06:23 PT 13.6 SECONDS (9.7-12.2) H 09/11/18 21:50 INR 1.2 09/11/18 21:50 APTT 33 SECONDS (21-34) 09/11/18 21:50
--- NOTE | 2018-09-16 14:20 | CP.PCM.PN ---
<Yasmin Ochoa - Last Filed: 09/16/18 17:07> Subjective - Date & Time of Evaluation Date of Evaluation: 09/16/18 Time of Evaluation: 14:13 - Subjective Subjective: PGY3 progress note for cardiology Pt seen and examined at bedside. Pt continues to be HTN overnight. Currently pt denies having any CP, sob, abd pain, N/V/D/C. Pt is resting comfortably in bed. Objective - Vital Signs/Intake and Output Vital Signs (last 24 hours): Temp Pulse Resp BP Pulse Ox 98.9 F 71 18 167/79 H 100 09/16/18 07:00 09/16/18 08:33 09/16/18 07:00 09/16/18 10:57 09/16/18 07:00 Intake and Output: 09/16/18 09/16/18 06:59 18:59 Intake Total 80 Balance 80 - Medications Medications: Current Medications Albuterol/Ipratropium (Duoneb 3 Mg/0.5 Mg (3 Ml) Ud) 3 ml INH RQ6 [facility] Last Admin: 09/16/18 07:15 Dose: 3 ml Allopurinol (Zyloprim) 100 mg PO DAILY [facility] Last Admin: 09/16/18 10:56 Dose: 100 mg Aspirin (Aspirin) 325 mg PO DAILY [facility] Last Admin: 09/16/18 10:56 Dose: 325 mg Carvedilol (Coreg) 12.5 mg PO Q12 [facility] Last Admin: 09/16/18 10:57 Dose: 12.5 mg Clonidine HCl (Catapres) 0.2 mg PO Q8H [facility] Last Admin: 09/16/18 10:56 Dose: 0.2 mg Clonidine HCl (Catapres Tts1 0.1 Mg/24 Hr) 1 patch TD Q7D@1000 [facility] Last Admin: 09/15/18 15:05 Dose: 1 patch Heparin Sodium (Porcine) (Heparin) 5,000 units SC Q8 [facility] Last Admin: 09/16/18 13:20 Dose: 5,000 units Hydralazine HCl (Apresoline) 50 mg PO BID [facility] Last Admin: 09/16/18 10:56 Dose: 50 mg Piperacillin Sod/Tazobactam Sod (Zosyn 2.25 Gm Iv Premix) 2.25 gm in 50 mls @ 100 mls/hr IVPB Q6H [facility]; Protocol Last Admin: 09/16/18 10:55 Dose: 100 mls/hr Azithromycin (Zithromax 500mg In Ns Addvantage) 500 mg in 250 mls @ 167 mls/hr IVPB Q24H [facility]; Protocol Last Admin: 09/15/18 18:07 Dose: 167 mls/hr Insulin Aspart (Novolog) 0 unit SC ACHS [facility]; Protocol Last Admin: 09/16/18 13:20 Dose: 1 unit Nifedipine (Procardia Xl) 60 mg PO Q12H [facility] Last Admin: 09/16/18 10:56 Dose: 60 mg Phenytoin Sodium (Dilantin) 100 mg PO TID [facility] Last Admin: 09/16/18 13:20 Dose: 100 mg Rosuvastatin Calcium (Crestor) 10 mg PO HS [facility] Last Admin: 09/15/18 21:45 Dose: 10 mg - Labs Labs: 09/15/18 06:23 09/15/18 06:23 PT 13.6 SECONDS (9.7-12.2) H 09/11/18 21:50 INR 1.2 09/11/18 21:50 APTT 33 SECONDS (21-34) 09/11/18 21:50 - Constitutional Appears: Non-toxic, No Acute Distress - Head Exam Head Exam: ATRAUMATIC, NORMOCEPHALIC - ENT Exam ENT Exam: Mucous Membranes Moist - Respiratory Exam Respiratory Exam: Clear to Ausculation Bilateral. absent: Rales, Rhonchi, Wheezes - Cardiovascular Exam Cardiovascular Exam: REGULAR RHYTHM, +S1, +S2 - GI/Abdominal Exam GI & Abdominal Exam: Soft, Normal Bowel Sounds. absent: Distended, Firm, Guarding, Rigid, Tenderness - Neurological Exam Neurological Exam: Alert, Awake - Psychiatric Exam Psychiatric exam: Normal Affect, Normal Mood - Skin Skin Exam: Dry, Intact, Normal Color, Warm Assessment and Plan - Assessment and Plan (Free Text) Assessment: 73 year old male with past medical history of TIA, HTN, CRI, seizure disorder, TB exposure last year being treated with isoniazide is admitted for SOB 2/2 PNA. Cardiology consulted for HTN management HTN - Currently on Coreg 12.5 mg po bid, Clonodine 0.2 mg po Q8, Hydralazine 50 mg po BID and Procardia 60 mg po q12 - Renal US was negative - Overnight BP elevated PNA - Currently on Zosyn and zithromax - management per primary care team CKD - Improving - management per primary team TIA - Continue aspirin and crestor Case will be discussed with attending, Dr. Nevarez <Jonathan Nevarez - Last Filed: 09/16/18 22:38> Objective - Vital Signs/Intake and Output Vital Signs (last 24 hours): Temp Pulse Resp BP Pulse Ox 97.4 F L 76 20 145/79 96 09/16/18 15:00 09/16/18 15:00 09/16/18 15:00 09/16/18 21:25 09/16/18 15:00 - Medications Medications: Current Medications Albuterol/Ipratropium (Duoneb 3 Mg/0.5 Mg (3 Ml) Ud) 3 ml INH RQ6 [facility] Last Admin: 09/16/18 19:30 Dose: 3 ml Allopurinol (Zyloprim) 100 mg PO DAILY [facility] Last Admin: 09/16/18 10:56 Dose: 100 mg Aspirin (Aspirin) 325 mg PO DAILY [facility] Last Admin: 09/16/18 10:56 Dose: 325 mg Carvedilol (Coreg) 25 mg PO Q12 [facility] Last Admin: 09/16/18 21:25 Dose: 25 mg Clonidine HCl (Catapres Tts1 0.1 Mg/24 Hr) 1 patch TD Q7D@1000 [facility] Last Admin: 09/15/18 15:05 Dose: 1 patch Clonidine HCl (Catapres) 0.2 mg PO Q12 [facility] Last Admin: 09/16/18 21:23 Dose: Not Given Heparin Sodium (Porcine) (Heparin) 5,000 units SC Q8 [facility] Last Admin: 09/16/18 21:24 Dose: Not Given Hydralazine HCl (Apresoline) 50 mg PO BID [facility] Last Admin: 09/16/18 17:31 Dose: 50 mg Piperacillin Sod/Tazobactam Sod (Zosyn 2.25 Gm Iv Premix) 2.25 gm in 50 mls @ 100 mls/hr IVPB Q6H [facility]; Protocol Last Admin: 09/16/18 21:26 Dose: 100 mls/hr Azithromycin (Zithromax 500mg In Ns Addvantage) 500 mg in 250 mls @ 167 mls/hr IVPB Q24H [facility]; Protocol Last Admin: 09/16/18 17:29 Dose: 167 mls/hr Insulin Aspart (Novolog) 0 unit SC ACHS [facility]; Protocol Last Admin: 09/16/18 21:24 Dose: Not Given Nifedipine (Procardia Xl) 60 mg PO Q12H [facility] Last Admin: 09/16/18 21:25 Dose: 60 mg Phenytoin Sodium (Dilantin) 200 mg PO BID [facility] Rosuvastatin Calcium (Crestor) 10 mg PO HS [facility] Last Admin: 09/16/18 21:25 Dose: 10 mg - Labs Labs: 09/15/18 06:23 09/15/18 06:23 PT 13.6 SECONDS (9.7-12.2) H 09/11/18 21:50 INR 1.2 09/11/18 21:50 APTT 33 SECONDS (21-34) 09/11/18 21:50 Assessment and Plan - Assessment and Plan (Free Text) Assessment: Patient seen and evaluated personally by me. Plan of care d/w the medical physics professor and as documented
--- NOTE | 2018-09-16 17:22 | CP.PCM.PN ---
<Brian Mendosa - Last Filed: 09/16/18 17:19> Subjective - Date & Time of Evaluation Date of Evaluation: 09/16/18 Time of Evaluation: 10:10 - Subjective Subjective: Pulmonology Progress Note for Dr. Almazan Patient seen and examined this morning at bedside. Patient is resting comfortably, afebrile, saturating at 100% on 3L NC. Patient expresses frustration that he cannot go home. He is hopeful that he will be allowed to go home today as he is feeling much better and only has a dry cough. Patient denies fevers, chills, nausea, vomiting, diarrhea, constipation, chest pain or SOB. Objective - Vital Signs/Intake and Output Vital Signs (last 24 hours): Temp Pulse Resp BP Pulse Ox 97.4 F L 76 20 164/79 H 96 09/16/18 15:00 09/16/18 15:00 09/16/18 15:00 09/16/18 15:00 09/16/18 15:00 Intake and Output: 09/16/18 09/16/18 06:59 18:59 Intake Total 80 Balance 80 - Medications Medications: Current Medications Albuterol/Ipratropium (Duoneb 3 Mg/0.5 Mg (3 Ml) Ud) 3 ml INH RQ6 [facility] Last Admin: 09/16/18 13:25 Dose: 3 ml Allopurinol (Zyloprim) 100 mg PO DAILY [facility] Last Admin: 09/16/18 10:56 Dose: 100 mg Aspirin (Aspirin) 325 mg PO DAILY [facility] Last Admin: 09/16/18 10:56 Dose: 325 mg Carvedilol (Coreg) 12.5 mg PO Q12 [facility] Last Admin: 09/16/18 10:57 Dose: 12.5 mg Clonidine HCl (Catapres) 0.2 mg PO Q8H [facility] Last Admin: 09/16/18 10:56 Dose: 0.2 mg Clonidine HCl (Catapres Tts1 0.1 Mg/24 Hr) 1 patch TD Q7D@1000 [facility] Last Admin: 09/15/18 15:05 Dose: 1 patch Heparin Sodium (Porcine) (Heparin) 5,000 units SC Q8 [facility] Last Admin: 09/16/18 13:20 Dose: 5,000 units Hydralazine HCl (Apresoline) 50 mg PO BID [facility] Last Admin: 09/16/18 10:56 Dose: 50 mg Piperacillin Sod/Tazobactam Sod (Zosyn 2.25 Gm Iv Premix) 2.25 gm in 50 mls @ 100 mls/hr IVPB Q6H [facility]; Protocol Last Admin: 09/16/18 10:55 Dose: 100 mls/hr Azithromycin (Zithromax 500mg In Ns Addvantage) 500 mg in 250 mls @ 167 mls/hr IVPB Q24H [facility]; Protocol Last Admin: 09/15/18 18:07 Dose: 167 mls/hr Insulin Aspart (Novolog) 0 unit SC ACHS [facility]; Protocol Last Admin: 09/16/18 16:54 Dose: Not Given Nifedipine (Procardia Xl) 60 mg PO Q12H [facility] Last Admin: 09/16/18 10:56 Dose: 60 mg Phenytoin Sodium (Dilantin) 100 mg PO TID [facility] Last Admin: 09/16/18 13:20 Dose: 100 mg Rosuvastatin Calcium (Crestor) 10 mg PO HS [facility] Last Admin: 09/15/18 21:45 Dose: 10 mg - Labs Labs: 09/15/18 06:23 09/15/18 06:23 PT 13.6 SECONDS (9.7-12.2) H 09/11/18 21:50 INR 1.2 09/11/18 21:50 APTT 33 SECONDS (21-34) 09/11/18 21:50 - Constitutional Appears: Non-toxic, No Acute Distress - Head Exam Head Exam: ATRAUMATIC, NORMOCEPHALIC - Eye Exam Eye Exam: Normal appearance - ENT Exam ENT Exam: Mucous Membranes Moist - Neck Exam Neck Exam: absent: Lymphadenopathy - Respiratory Exam Respiratory Exam: Decreased Breath Sounds, Rales (base b/l, L>R), NORMAL BREATHING PATTERN. absent: Accessory Muscle Use, Rhonchi, Respiratory Distress - Cardiovascular Exam Cardiovascular Exam: REGULAR RHYTHM, +S1, +S2 - GI/Abdominal Exam GI & Abdominal Exam: Soft. absent: Distended, Firm, Guarding, Rigid, Tenderness - Extremities Exam Extremities Exam: absent: Calf Tenderness, Pedal Edema - Neurological Exam Neurological Exam: Alert, Awake - Psychiatric Exam Psychiatric exam: Normal Affect, Normal Mood - Skin Skin Exam: Dry, Warm Assessment and Plan (1) Pneumonia Assessment & Plan: 09/11/18 CXR: Multifocal pneumonia in left lung, worse in lower lobes, small left pleural effusion. 09/11/[address]: L upper and L lower lobe infiltrates, trace left pleural effusion, centrilolobular pulmonary emphysema. 09/15/18 CXR: Patchy opacities seen throughout left mid to lower lung field consistent with history of pneumonia. - mild improvement over initial imaging clinically much better afebrile, WBC 14.1 yesterday procalcitonin improved to 2.99 from 25.55 on 09/12/18 continue Duoneb supportive care antibiotics: currently on azithromycin and Zosyn, can switch to PO Augmentin on discharge Patient is stable from pulmonology standpoint for discharge Status: Acute (2) Acute on chronic renal insufficiency Status: Acute <John Almazan - Last Filed: 09/16/18 18:06> Objective - Vital Signs/Intake and Output Vital Signs (last 24 hours): Temp Pulse Resp BP Pulse Ox 97.4 F L 76 20 164/79 H 96 09/16/18 15:00 09/16/18 15:00 09/16/18 15:00 09/16/18 15:00 09/16/18 15:00 Intake and Output: 09/16/18 09/16/18 06:59 18:59 Intake Total 80 Balance 80 - Medications Medications: Current Medications Albuterol/Ipratropium (Duoneb 3 Mg/0.5 Mg (3 Ml) Ud) 3 ml INH RQ6 [facility] Last Admin: 09/16/18 13:25 Dose: 3 ml Allopurinol (Zyloprim) 100 mg PO DAILY [facility] Last Admin: 09/16/18 10:56 Dose: 100 mg Aspirin (Aspirin) 325 mg PO DAILY [facility] Last Admin: 09/16/18 10:56 Dose: 325 mg Carvedilol (Coreg) 12.5 mg PO Q12 [facility] Last Admin: 09/16/18 10:57 Dose: 12.5 mg Clonidine HCl (Catapres) 0.2 mg PO Q8H [facility] Last Admin: 09/16/18 17:30 Dose: 0.2 mg Clonidine HCl (Catapres Tts1 0.1 Mg/24 Hr) 1 patch TD Q7D@1000 [facility] Last Admin: 09/15/18 15:05 Dose: 1 patch Heparin Sodium (Porcine) (Heparin) 5,000 units SC Q8 [facility] Last Admin: 09/16/18 13:20 Dose: 5,000 units Hydralazine HCl (Apresoline) 50 mg PO BID [facility] Last Admin: 09/16/18 17:31 Dose: 50 mg Piperacillin Sod/Tazobactam Sod (Zosyn 2.25 Gm Iv Premix) 2.25 gm in 50 mls @ 100 mls/hr IVPB Q6H [facility]; Protocol Last Admin: 09/16/18 17:00 Dose: 100 mls/hr Azithromycin (Zithromax 500mg In Ns Addvantage) 500 mg in 250 mls @ 167 mls/hr IVPB Q24H [facility]; Protocol Last Admin: 09/16/18 17:29 Dose: 167 mls/hr Insulin Aspart (Novolog) 0 unit SC ACHS [facility]; Protocol Last Admin: 09/16/18 16:54 Dose: Not Given Nifedipine (Procardia Xl) 60 mg PO Q12H [facility] Last Admin: 09/16/18 10:56 Dose: 60 mg Phenytoin Sodium (Dilantin) 100 mg PO TID [facility] Last Admin: 09/16/18 17:31 Dose: 100 mg Rosuvastatin Calcium (Crestor) 10 mg PO HS [facility] Last Admin: 09/15/18 21:45 Dose: 10 mg - Labs Labs: 09/15/18 06:23 09/15/18 06:23 PT 13.6 SECONDS (9.7-12.2) H 09/11/18 21:50 INR 1.2 09/11/18 21:50 APTT 33 SECONDS (21-34) 09/11/18 21:50 Assessment and Plan (1) Pneumonia Status: Acute (2) Acute on chronic renal insufficiency Status: Acute Attending/Attestation - Attestation I have personally seen and examined this patient.: Yes I have fully participated in the care of the patient.: Yes I have reviewed all pertinent clinical information, including history, physical exam and plan: Yes
[2018-09-16] MEDS: Azithromycin 500mg/250ML NS 500 MG/250 ML BAG IVPB SCH (17:29)
--- NOTE | 2018-09-17 00:05 | PN ---
DATE: 09/16/2018 SUBJECTIVE: The patient was seen and examined at bedside. The patient denies any new complaints. Anxious to be discharged. PHYSICAL EXAMINATION: GENERAL: Elderly male, lying in bed, in no acute distress. VITAL SIGNS: Blood pressure 164/69, pulse 76, respirations 20, temperature 97.4 degrees Fahrenheit, O2 sat is 96% on room air. HEENT: Pupils are equal, round, and reacting to light and accommodation. Extraocular muscles intact. No icterus. No pallor. No oral thrush. No pharyngeal congestion. NECK: Supple. No JVD. LUNGS: Bilateral vesicular breath sounds. No wheezing. No rhonchi. CARDIOVASCULAR SYSTEM: S1 and S2 present, regular. ABDOMEN: Soft, nontender. Bowel sounds present. No guarding. No rigidity. No rebound tenderness noted. CENTRAL NERVOUS SYSTEM: Alert, awake, oriented x3. No focal deficits noted. EXTREMITIES: No edema. Palpable peripheral pulses. MEDICATIONS: Include DuoNeb 3 mL every 6 hours, allopurinol 100 mg daily, aspirin 325 mg daily, azithromycin 500 mg IV daily, Coreg 12.5 mg p.o. every 12 hours, Catapres 0.2 mg p.o. every 8 hours, clonidine patch 0.1 mg once a week, hydralazine 50 mg p.o. b.i.d, Procardia-XL 60 mg p.o. every 12 hours, Dilantin 100 mg p.o. t.i.d., Zosyn 2.25 g IV every 6 hours, Crestor 10 mg p.o. at bedtime. LABORATORY DATA: Accu-Cheks 135, 176, 116,189, 131. Procalcitonin 2.99. Blood cultures negative so far. Urine culture negative. ASSESSMENT AND PLAN: Elderly male with history of hypertension, hyperlipidemia, seizure disorder, transient ischemic attack, chronic kidney disease, history of latent tuberculosis, on isoniazid prophylaxis, seizure disorder. Admitted for pneumonia, possible sepsis, acute kidney injury and chronic kidney disease. His renal function is slightly better. His pneumonia is improving. His procalcitonin improved from 25 to 2.2. Pulmonary, Renal and Infectious Disease inputs appreciated. Dr. Ritter recommending intravenous antibiotics for total seven days intravenous. Called [facility]. Discussed with nurse. As per the [facility], the patient's baseline creatinine is 2.3 and 2.4 done in 06/2018. The patient was not getting clonidine by mouth. Medication as per the clinic: The patient is on allopurinol 100 mg daily, phenytoin 100 mg two capsules twice a day, pyridoxine 25 mg by mouth daily, isoniazid 300 mg by mouth daily, Coreg 25 mg every 12 hours, clonidine 0.1 mg patch every week, nifedipine 60 mg twice a day, Exelon patch, aspirin 325 mg daily, atorvastatin 40 mg daily, chlorthalidone 25 mg daily, cyanocobalamin 500 mcg daily, hydralazine 50 mg by mouth daily, vitamin D 3000 units daily. We will repeat his labs in the morning. We will continue with current intravenous antibiotics as per Infectious Disease. Judie Ramirez MD
--- NOTE | 2018-09-17 01:04 | PN ---
DATE: 09/16/2018 FOLLOWUP RENAL CONSULTATION LOCATION: The patient is located in room 651, bed A. REQUESTED BY: Judie Ramirez MD REASON FOR FOLLOWUP: Acute renal failure, chronic kidney disease, and pneumonia. HISTORY OF PRESENT ILLNESS: The patient is a 73-year-old elderly male with a past medical history significant for hypertension, chronic kidney disease, smoker, emphysema, seizure disorder, questionable dementia, CVA who was admitted with weakness, cough, and shortness of breath; and the patient was found to have a left lung pneumonia, on IV antibiotics. The patient is feeling much better. Out of bed to chair. No chest pain. No palpitation. No fever. No cough. No abdominal pain. No nausea, vomiting, or diarrhea. PHYSICAL EXAMINATION: VITAL SIGNS: As follows: Blood pressure 167/79, pulse 76, respirations 20, temperature 97.4, saturation 96%. Height 5 feet 10 inches, weight is 177 pounds. GENERAL: Mr. Wells is a 73-year-old elderly male, moderately built, moderately nourished, not in acute distress. HEENT: Pupils normal and reactive to light and accommodation. Conjunctivae pink. Sclerae anicteric. Tongue is moist. Trachea is midline. LUNGS: Symmetric on both sides. Decreased breath sounds on the left base, right side normal breath sounds. CARDIOVASCULAR SYSTEM: [place] at the fifth intercostal space midclavicular line. S1, S2 audible. No murmur or gallop. ABDOMEN: Normal in appearance. Soft, tympanitic. No guarding. No rigidity. No hepatosplenomegaly. CENTRAL NERVOUS SYSTEM: The patient is alert, awake, oriented times 2 to 3. Nonfocal neuro examination. Cranial nerves II through XII grossly intact. Sensory and motor system is within normal limits. EXTREMITIES: No cyanosis, no clubbing, no edema. MEDICATIONS: His current medications include as follows: Hydralazine 50 mg p.o. b.i.d., aspirin 325 mg p.o. daily, clonidine 0.2 mg p.o. every 12 hours, Catapres TTS one patch daily, Coreg 25 mg p.o. every 12 hours, Crestor 10 mg at bedtime, Dilantin 200 mg p.o. b.i.d., subcu heparin 5000 units every 12 hours, Procardia XL 60 mg p.o. every 12 hours, azithromycin 500 mg every 12 hours, Zosyn 2.25 g IV every 6 hours, allopurinol 100 mg p.o. daily. LABORATORY DATA: No new labs are available. As of 09/15/2018: WBC 14.1, hemoglobin 9.4, hematocrit is 29.1, platelets 451. Sodium 142, potassium 3.8, chloride 114, CO2 of 20, BUN 46, creatinine 2.9, glucose 131, calcium 8.4. Total bili 0.4, AST 72, ALT 79, alkaline phosphatase 201, total protein 6.9, albumin is 3. Blood culture and urine culture are negative as of 09/11/2018. IMPRESSION AND PLAN: In summary, Mr. Wells is a 73-year-old elderly male with a history of hypertension, cerebrovascular accident, questionable dementia, chronic kidney disease, seizure disorder who was admitted with cough, shortness of breath, and found to have a left lung pneumonia and also increased blood urea nitrogen and creatinine. 1. Acute renal failure, on chronic kidney disease secondary to most likely dehydration, secondary to decreased p.o. intake prior to the admission and also cannot rule out acute tubular necrosis. 2. Left lung pneumonia. 3. Uncontrolled hypertension. 4. Seizure disorder. 5. Dementia. PLAN: Continue IV antibiotics, Zithromax and Zosyn. Repeat BMP and CBC in a.m. Consider to discontinue Catapres tablets, and continue Catapres TTS patch weekly. Discussed with the PMD. Thank you for allowing me to participate in your patient's care. Wai Ramirez MD
[2018-09-17] MEDS: Albuterol-Ipratrop 3 mg / 0.5 (3 ml) UD INH SCH (02:00)
[2018-09-17] MEDS: Piperacill/Tazo 2.25gm in Dex 2.25 GM/50 ML BAG IVPB SCH ×4 (03:21→21:13)
[2018-09-17 07:27] LABS: ALB/GLOB RATIO 0.7 (1.0-2.1); ALBUMIN 3.2 g/dL (3.5-5.0); CALCIUM 8.8 mg/dl (8.6-10.4)
[2018-09-17 07:45] LABS: BASO % 0.4 % (0.0-2.0); EOS # 0.2 K/uL (0.0-0.7); EOS % 1.6 % (0.0-4.0); HEMOGLOBIN 9.6 g/dL (12.0-18.0); LYMPH # 1.9 K/uL (1.0-4.3); LYMPH % 16.8 % (20.0-40.0); MEAN CELL VOLUME 84.7 fL (80.0-94.0); MEAN CORPUSCULAR HEMOGLOBIN 28.3 pg (27.0-31.0); MEAN CORPUSCULAR HGB CONC 33.4 g/dL (33.0-37.0); MEAN PLATELET VOLUME 7.6 fL (7.2-11.7); MONO # 0.8 K/uL (0.0-0.8); MONO % 6.7 % (0.0-10.0); NEUT # 8.6 K/uL (1.8-7.0); NEUT % 74.5 % (50.0-75.0); RBC 3.41 Mil/uL (4.40-5.90); RED CELL DISTRIBUTION WIDTH 14.6 % (11.5-14.5); WHITE BLOOD COUNT 11.5 K/uL (4.8-10.8)
[2018-09-17] MEDS: (Novolog) Insulin Aspart, Recombinant 100 u/ml 10 ml vial SC SCH ×4 (08:16→22:00)
[2018-09-17] MEDS ORDERED: Potassium Chloride 20 mEq ER Tab PO ONE (08:45)
[2018-09-17] MEDS: NIFEdipine 60 mg ER Tab PO SCH ×2 (09:35→21:13)
--- NOTE | 2018-09-17 11:45 | CP.PCM.PN ---
Subjective - Date & Time of Evaluation Date of Evaluation: 09/17/18 Time of Evaluation: 11:45 - Subjective Subjective: Progress note dictated #[id number] Objective - Vital Signs/Intake and Output Vital Signs (last 24 hours): Temp Pulse Resp BP Pulse Ox 98.8 F 90 18 184/81 H 96 09/17/18 07:00 09/17/18 07:00 09/17/18 07:00 09/17/18 09:44 09/17/18 07:00 Intake and Output: 09/17/18 09/17/18 06:59 18:59 Intake Total 210 Output Total 200 Balance 10 - Medications Medications: Current Medications Allopurinol (Zyloprim) 100 mg PO DAILY [facility] Last Admin: 09/17/18 09:36 Dose: 100 mg Aspirin (Aspirin) 325 mg PO DAILY [facility] Last Admin: 09/17/18 09:35 Dose: 325 mg Carvedilol (Coreg) 25 mg PO Q12 [facility] Last Admin: 09/17/18 09:44 Dose: 25 mg Clonidine HCl (Catapres Tts1 0.1 Mg/24 Hr) 1 patch TD Q7D@1000 [facility] Last Admin: 09/15/18 15:05 Dose: 1 patch Clonidine HCl (Catapres) 0.2 mg PO Q12 [facility] Last Admin: 09/17/18 09:35 Dose: 0.2 mg Heparin Sodium (Porcine) (Heparin) 5,000 units SC Q8 [facility] Last Admin: 09/17/18 05:45 Dose: 5,000 units Hydralazine HCl (Apresoline) 50 mg PO BID [facility] Last Admin: 09/17/18 09:35 Dose: 50 mg Piperacillin Sod/Tazobactam Sod (Zosyn 2.25 Gm Iv Premix) 2.25 gm in 50 mls @ 100 mls/hr IVPB Q6H [facility]; Protocol Last Admin: 09/17/18 09:53 Dose: 100 mls/hr Azithromycin (Zithromax 500mg In Ns Addvantage) 500 mg in 250 mls @ 167 mls/hr IVPB Q24H [facility]; Protocol Last Admin: 09/16/18 17:29 Dose: 167 mls/hr Insulin Aspart (Novolog) 0 unit SC ACHS [facility]; Protocol Last Admin: 09/17/18 08:16 Dose: Not Given Nifedipine (Procardia Xl) 60 mg PO Q12H [facility] Last Admin: 09/17/18 09:35 Dose: 60 mg Phenytoin Sodium (Dilantin) 200 mg PO BID [facility] Last Admin: 09/17/18 09:35 Dose: 200 mg Rosuvastatin Calcium (Crestor) 10 mg PO HS [facility] Last Admin: 09/16/18 21:25 Dose: 10 mg - Labs Labs: 09/17/18 06:32 09/17/18 06:32 PT 13.6 SECONDS (9.7-12.2) H 09/11/18 21:50 INR 1.2 09/11/18 21:50 APTT 33 SECONDS (21-34) 09/11/18 21:50
--- NOTE | 2018-09-17 11:52 | CP.PCM.PN ---
Subjective - Date & Time of Evaluation Date of Evaluation: 09/17/18 Time of Evaluation: 11:52 - Subjective Subjective: pt is seen and examined, follow up consult is dictated #[id number] renal function is back to his base line 2.3 Objective - Vital Signs/Intake and Output Vital Signs (last 24 hours): Temp Pulse Resp BP Pulse Ox 98.8 F 90 18 184/81 H 96 09/17/18 07:00 09/17/18 07:00 09/17/18 07:00 09/17/18 09:44 09/17/18 07:00 Intake and Output: 09/17/18 09/17/18 06:59 18:59 Intake Total 210 Output Total 200 Balance 10 - Medications Medications: Current Medications Allopurinol (Zyloprim) 100 mg PO DAILY [facility] Last Admin: 09/17/18 09:36 Dose: 100 mg Aspirin (Aspirin) 325 mg PO DAILY [facility] Last Admin: 09/17/18 09:35 Dose: 325 mg Carvedilol (Coreg) 25 mg PO Q12 [facility] Last Admin: 09/17/18 09:44 Dose: 25 mg Clonidine HCl (Catapres Tts1 0.1 Mg/24 Hr) 1 patch TD Q7D@1000 [facility] Last Admin: 09/15/18 15:05 Dose: 1 patch Clonidine HCl (Catapres) 0.2 mg PO DAILY [facility] Heparin Sodium (Porcine) (Heparin) 5,000 units SC Q8 [facility] Last Admin: 09/17/18 05:45 Dose: 5,000 units Hydralazine HCl (Apresoline) 50 mg PO BID [facility] Last Admin: 09/17/18 09:35 Dose: 50 mg Piperacillin Sod/Tazobactam Sod (Zosyn 2.25 Gm Iv Premix) 2.25 gm in 50 mls @ 100 mls/hr IVPB Q6H [facility]; Protocol Last Admin: 09/17/18 09:53 Dose: 100 mls/hr Azithromycin (Zithromax 500mg In Ns Addvantage) 500 mg in 250 mls @ 167 mls/hr IVPB Q24H [facility]; Protocol Last Admin: 09/16/18 17:29 Dose: 167 mls/hr Insulin Aspart (Novolog) 0 unit SC ACHS [facility]; Protocol Last Admin: 09/17/18 08:16 Dose: Not Given Nifedipine (Procardia Xl) 60 mg PO Q12H [facility] Last Admin: 09/17/18 09:35 Dose: 60 mg Phenytoin (Dilantin) 200 mg PO ONCE ONE Stop: 09/17/18 14:01 Phenytoin Sodium (Dilantin) 200 mg PO BID [facility] Last Admin: 09/17/18 09:35 Dose: 200 mg Rosuvastatin Calcium (Crestor) 10 mg PO HS [facility] Last Admin: 09/16/18 21:25 Dose: 10 mg - Labs Labs: 09/17/18 06:32 09/17/18 06:32 PT 13.6 SECONDS (9.7-12.2) H 09/11/18 21:50 INR 1.2 09/11/18 21:50 APTT 33 SECONDS (21-34) 09/11/18 21:50
[2018-09-17] MEDS ORDERED: Phenytoin 100 mg/4 ml Oral Susp UD PO ONE (14:00)
--- NOTE | 2018-09-17 15:08 | CP.PCM.PN ---
<Yasmin Ochoa - Last Filed: 09/17/18 15:04> Subjective - Date & Time of Evaluation Date of Evaluation: 09/17/18 Time of Evaluation: 15:04 - Subjective Subjective: Progress note for cardiology Pt seen and examined this am. No events overnight. Pt is sitting comfortably. Denies having any CP, SOB, abd pain, N/V/D/C, f/c. Pt later seen walking around with PT without difficulty. Objective - Vital Signs/Intake and Output Vital Signs (last 24 hours): Temp Pulse Resp BP Pulse Ox 98.8 F 94 H 18 184/81 H 96 09/17/18 07:00 09/17/18 07:14 09/17/18 07:00 09/17/18 09:44 09/17/18 07:00 Intake and Output: 09/17/18 09/17/18 06:59 18:59 Intake Total 210 Output Total 200 Balance 10 - Medications Medications: Current Medications Allopurinol (Zyloprim) 100 mg PO DAILY [facility] Last Admin: 09/17/18 09:36 Dose: 100 mg Aspirin (Aspirin) 325 mg PO DAILY [facility] Last Admin: 09/17/18 09:35 Dose: 325 mg Carvedilol (Coreg) 25 mg PO Q12 [facility] Last Admin: 09/17/18 09:44 Dose: 25 mg Clonidine HCl (Catapres Tts1 0.1 Mg/24 Hr) 1 patch TD Q7D@1000 [facility] Last Admin: 09/15/18 15:05 Dose: 1 patch Clonidine HCl (Catapres) 0.2 mg PO DAILY [facility] Heparin Sodium (Porcine) (Heparin) 5,000 units SC Q8 [facility] Last Admin: 09/17/18 13:20 Dose: 5,000 units Hydralazine HCl (Apresoline) 50 mg PO BID [facility] Last Admin: 09/17/18 09:35 Dose: 50 mg Piperacillin Sod/Tazobactam Sod (Zosyn 2.25 Gm Iv Premix) 2.25 gm in 50 mls @ 100 mls/hr IVPB Q6H [facility]; Protocol Last Admin: 09/17/18 09:53 Dose: 100 mls/hr Azithromycin (Zithromax 500mg In Ns Addvantage) 500 mg in 250 mls @ 167 mls/hr IVPB Q24H [facility]; Protocol Last Admin: 09/16/18 17:29 Dose: 167 mls/hr Insulin Aspart (Novolog) 0 unit SC ACHS [facility]; Protocol Last Admin: 09/17/18 12:46 Dose: 1 unit Nifedipine (Procardia Xl) 60 mg PO Q12H [facility] Last Admin: 09/17/18 09:35 Dose: 60 mg Phenytoin Sodium (Dilantin) 200 mg PO BID [facility] Last Admin: 09/17/18 09:35 Dose: 200 mg Rosuvastatin Calcium (Crestor) 10 mg PO HS [facility] Last Admin: 09/16/18 21:25 Dose: 10 mg - Labs Labs: 09/17/18 06:32 09/17/18 06:32 PT 13.6 SECONDS (9.7-12.2) H 09/11/18 21:50 INR 1.2 09/11/18 21:50 APTT 33 SECONDS (21-34) 09/11/18 21:50 - Constitutional Appears: Non-toxic, No Acute Distress - Head Exam Head Exam: ATRAUMATIC, NORMOCEPHALIC - ENT Exam ENT Exam: Mucous Membranes Moist - Respiratory Exam Respiratory Exam: Clear to Ausculation Bilateral. absent: Rales, Rhonchi, Wheezes - Cardiovascular Exam Cardiovascular Exam: REGULAR RHYTHM, +S1, +S2. absent: Gallop, Rubs, Murmur - GI/Abdominal Exam GI & Abdominal Exam: Soft, Normal Bowel Sounds. absent: Distended, Firm, Guarding, Rigid, Tenderness - Extremities Exam Extremities Exam: absent: Pedal Edema, Tenderness - Neurological Exam Neurological Exam: Alert, Awake - Psychiatric Exam Psychiatric exam: Normal Affect, Normal Mood - Skin Skin Exam: Dry, Intact, Normal Color, Warm Assessment and Plan - Assessment and Plan (Free Text) Assessment: 73 year old male with past medical history of TIA, HTN, CRI, seizure disorder, TB exposure last year being treated with isoniazide is admitted for SOB 2/2 PNA. Cardiology consulted for HTN management HTN - Currently on Coreg 12.5 mg po bid, Clonodine 0.2 mg po Q8, Clonidine patch .1 mg q24hr, Hydralazine 50 mg po BID and Procardia 60 mg po q12 - Renal US was negative PNA - Currently on Zosyn and zithromax - management per primary care team CKD - Improving - management per primary team TIA - Continue aspirin and crestor Case will be discussed with attending, Dr. Nevarez <Jonathan Nevarez - Last Filed: 09/17/18 22:19> Objective - Vital Signs/Intake and Output Vital Signs (last 24 hours): Temp Pulse Resp BP Pulse Ox 97.4 F L 79 20 176/81 H 96 09/17/18 15:00 09/17/18 15:00 09/17/18 15:00 09/17/18 21:12 09/17/18 15:00 - Medications Medications: Current Medications Allopurinol (Zyloprim) 100 mg PO DAILY [facility] Last Admin: 09/17/18 09:36 Dose: 100 mg Aspirin (Aspirin) 325 mg PO DAILY [facility] Last Admin: 09/17/18 09:35 Dose: 325 mg Carvedilol (Coreg) 25 mg PO Q12 [facility] Last Admin: 09/17/18 21:12 Dose: 25 mg Clonidine HCl (Catapres Tts1 0.1 Mg/24 Hr) 1 patch TD Q7D@1000 [facility] Last Admin: 09/15/18 15:05 Dose: 1 patch Clonidine HCl (Catapres) 0.2 mg PO DAILY [facility] Heparin Sodium (Porcine) (Heparin) 5,000 units SC Q8 [facility] Last Admin: 09/17/18 21:13 Dose: Not Given Hydralazine HCl (Apresoline) 50 mg PO BID [facility] Last Admin: 09/17/18 18:31 Dose: 50 mg Piperacillin Sod/Tazobactam Sod (Zosyn 2.25 Gm Iv Premix) 2.25 gm in 50 mls @ 100 mls/hr IVPB Q6H [facility]; Protocol Last Admin: 09/17/18 21:13 Dose: 100 mls/hr Azithromycin (Zithromax 500mg In Ns Addvantage) 500 mg in 250 mls @ 167 mls/hr IVPB Q24H [facility]; Protocol Last Admin: 09/17/18 18:31 Dose: 167 mls/hr Insulin Aspart (Novolog) 0 unit SC ACHS [facility]; Protocol Last Admin: 09/17/18 18:37 Dose: Not Given Nifedipine (Procardia Xl) 60 mg PO Q12H [facility] Last Admin: 09/17/18 21:13 Dose: 60 mg Phenytoin Sodium (Dilantin) 200 mg PO BID [facility] Last Admin: 09/17/18 18:33 Dose: 200 mg Rosuvastatin Calcium (Crestor) 10 mg PO HS [facility] Last Admin: 09/17/18 21:13 Dose: 10 mg - Labs Labs: 09/17/18 06:32 09/17/18 06:32 PT 13.6 SECONDS (9.7-12.2) H 09/11/18 21:50 INR 1.2 09/11/18 21:50 APTT 33 SECONDS (21-34) 09/11/18 21:50 Assessment and Plan - Assessment and Plan (Free Text) Assessment: Patient seen and evaluated personally by me. Plan of care d/w the medical pathologist and as documented
[2018-09-17 16:03] VITALS: RESP 20
[2018-09-17] MEDS: Azithromycin 500mg/250ML NS 500 MG/250 ML BAG IVPB SCH (18:31)
--- NOTE | 2018-09-17 21:40 | PN ---
DATE: 09/17/2018 SUBJECTIVE: The patient was seen and examined at bedside. The patient offers no new complaints. PHYSICAL EXAMINATION: GENERAL: Elderly male, lying in bed in no acute distress. VITAL SIGNS: Blood pressure 165/75, pulse 79, respirations 20, temperature 97.4 degrees Fahrenheit, O2 sat is 96% on room air. HEENT: Pupils equal, round, reacting to light and accommodation. Extraocular muscles intact. No icterus. No pallor. No oral thrush. No pharyngeal congestion. NECK: Supple. No JVD. LUNGS: Bilateral vesicular breath sounds. No wheezing. No rhonchi. CARDIOVASCULAR SYSTEM: S1 and S2 present, regular. ABDOMEN: Soft, nontender. Bowel sounds present. No guarding. No rigidity. No rebound tenderness noted. CENTRAL NERVOUS SYSTEM: Alert, awake, oriented x3. No focal deficits noted. EXTREMITIES: No edema. Palpable peripheral pulses. MEDICATIONS: Include allopurinol 100 mg daily, aspirin 325 mg daily, azithromycin 500 mg IV daily, Coreg 25 mg p.o. every 12 hours, clonidine patch 0.1 mg every 7 days, Catapres 0.2 mg daily, hydralazine 50 mg p.o. b.i.d., nifedipine XL 60 mg p.o. every 12 hours, phenytoin 200 mg p.o. b.i.d., Zosyn 2.25 g IV every 6 hours, Crestor 10 mg p.o. at bedtime. LABORATORY DATA: Labs done from this morning, WBC 11.5, hemoglobin 9.6, hematocrit 28.9, platelets 597. Sodium 138, potassium 3.4, chloride 105, bicarbonate 23, BUN 33, creatinine 2.4, glucose 135, calcium 8.8, phosphorus 3, magnesium 1.8, alkaline phosphatase 186, total protein 7.7, albumin 3.2. Phenytoin less than 3. Urine culture negative. Blood cultures negative. ASSESSMENT AND PLAN: Elderly male with history of hypertension, hyperlipidemia, seizure disorder, transient ischemic attack, chronic kidney disease, history of latent tuberculosis recently diagnosed in 03/2018. Recommended isonicotinylhydrazide prophylaxis for six months at [facility], seizure disorder, admitted for pneumonia, possible sepsis, acute kidney injury on chronic kidney disease. His renal function is improving, at his baseline of 2.3 to 2.4. Patient's blood pressure is still high, his medications are being adjusted. Continue with intravenous antibiotics as per Dr. Ritter for a total of seven days, that will be completed tomorrow. If the patient is otherwise hemodynamically stable and blood pressures are stable, we will plan discharging the patient home after completion of the intravenous antibiotics. We will continue with other current medications. Extra dose of Dilantin was given as his Dilantin level was below therapeutic range. Judie Ramirez MD
--- NOTE | 2018-09-18 01:09 | CON ---
DATE: 09/17/2018 FOLLOWUP RENAL CONSULTATION LOCATION: The patient is located in room 651, bed A. REQUESTED BY: Judie Ramirez MD REASON FOR FOLLOWUP: Acute renal failure, chronic kidney disease. HISTORY OF PRESENT ILLNESS: Mr. Wells is a 73-year-old elderly male with a past medical history significant for hypertension, TIA, seizure disorder, chronic kidney disease, emphysema, who a smoker was admitted with cough, shortness of breath and weakness, and found to have left lung pneumonia, on IV antibiotics. The patient is feeling better. Not in distress. No chest pain. No palpitation. No fever. No cough. The patient is slightly drowsy today, but arousable. PHYSICAL EXAMINATION: VITAL SIGNS: As follows: Blood pressure 184/81, pulse 94, respirations 20, temperature 97.4, saturation 96% on 3 liters nasal cannula. Height 5 feet 10 inches, weight is 177 pounds. GENERAL: Mr. Wells is a 73-year-old elderly male, moderately build, moderately nourished, not in distress. HEENT: Pupils normal, reactive to light and accommodation. Conjunctivae pink. Sclerae anicteric. Tongue is moist. Trachea is midline. LUNGS: Symmetric on both sides. Occasional basal crackles in the left lung and right side normal. CARDIOVASCULAR SYSTEM: [place] at the fifth intercostal space, midclavicular line. S1, S2 audible. No murmur or gallop. ABDOMEN: Normal in appearance. Soft, tympanitic. No guarding. No rigidity. No hepatosplenomegaly. CENTRAL NERVOUS SYSTEM: The patient is alert, awake, oriented x2. Sensory and motor system grossly within normal limits. EXTREMITIES: No cyanosis, no clubbing, no edema. CURRENT MEDICATIONS: As follows: Hydralazine 50 mg p.o. b.i.d., aspirin 325 mg p.o. daily, and clonidine mg p.o. times daily and clonidine patch TTS one every weekly, Coreg 25 mg p.o. every 12 hours, Crestor 10 mg at bedtime, Dilantin 200 mg p.o. b.i.d., subcu heparin 5000 every 12 hours, NovoLog sliding scale, Procardia XL 60 mg every 12 hours, erythromycin 500 mg every 24 hours, Zosyn 2.25 g every 6 hours, allopurinol 100 mg p.o. daily. Blood culture x2 negative, day 5 x2. Urine culture is negative 09/11/2018. LABORATORY DATA: Include as follows: As of 09/17/2018, WBC 11.5, hemoglobin 9.6, hematocrit is 28.9, platelets are 597. Sodium 138, potassium 3.4, chloride 105, and CO2 23. BUN 33, creatinine 2.4, glucose 118, calcium 8.8, phosphorus 3, magnesium 1.8, total bili 0.4. AST 60, ALT 47, alkaline phosphatase 186, total protein 7.7, albumin 3.2 . Dilantin level less than 3. ASSESSMENT AND PLAN: In summary, Mr. Wells is a 73-year-old elderly male with hypertension, with transient ischemic attack, seizures, and chronic kidney disease, was admitted with weakness and shortness of breath and found to have left lung pneumonia, on intravenous antibiotics. 1. Acute renal failure, on chronic kidney disease. Renal function is improving nicely with hydration. 2. Left lung pneumonia. Continue antibiotics, Zosyn and Zithromax as per Infectious Disease recommendation for seven days, on intravenous antibiotics. 3. Uncontrolled hypertension. Continue his current medications, hydralazine, clonidine, and Procardia XL. Discontinue p.o. clonidine and to adjust Catapres TTS-2 if needed and increase hydralazine to 50 mg every 8 hours if blood pressure remains uncontrolled and also add hydrochlorothiazide, chlorthalidone 25 mg p.o. daily. We will follow with you. Thank you for allowing me to participate in your patient's care. Wai Ramirez MD
[2018-09-18] MEDS: Piperacill/Tazo 2.25gm in Dex 2.25 GM/50 ML BAG IVPB SCH ×3 (03:58→18:05)
[2018-09-18] MEDS: (Novolog) Insulin Aspart, Recombinant 100 u/ml 10 ml vial SC SCH ×3 (07:58→18:04)
[2018-09-18] MEDS: NIFEdipine 60 mg ER Tab PO SCH (09:33)
--- NOTE | 2018-09-18 10:56 | CP.PCM.PN ---
Subjective - Date & Time of Evaluation Date of Evaluation: 09/18/18 Time of Evaluation: 10:56 - Subjective Subjective: Discharge summary dictated #[id number] Objective - Vital Signs/Intake and Output Vital Signs (last 24 hours): Temp Pulse Resp BP Pulse Ox 98.0 F 90 20 179/80 H 96 09/18/18 07:00 09/18/18 07:00 09/18/18 07:00 09/18/18 09:33 09/18/18 07:00 Intake and Output: 09/18/18 09/18/18 06:59 18:59 Intake Total 60 Output Total 800 Balance -740 - Medications Medications: Current Medications Allopurinol (Zyloprim) 100 mg PO DAILY [facility] Last Admin: 09/18/18 09:33 Dose: 100 mg Aspirin (Aspirin) 325 mg PO DAILY [facility] Last Admin: 09/18/18 09:33 Dose: 325 mg Carvedilol (Coreg) 25 mg PO Q12 [facility] Last Admin: 09/18/18 09:33 Dose: 25 mg Clonidine HCl (Catapres Tts1 0.1 Mg/24 Hr) 1 patch TD Q7D@1000 [facility] Last Admin: 09/15/18 15:05 Dose: 1 patch Clonidine HCl (Catapres) 0.2 mg PO DAILY [facility] Last Admin: 09/18/18 09:33 Dose: 0.2 mg Hydralazine HCl (Apresoline) 50 mg PO BID [facility] Last Admin: 09/18/18 09:33 Dose: 50 mg Piperacillin Sod/Tazobactam Sod (Zosyn 2.25 Gm Iv Premix) 2.25 gm in 50 mls @ 100 mls/hr IVPB Q6H [facility]; Protocol Last Admin: 09/18/18 09:32 Dose: 100 mls/hr Azithromycin (Zithromax 500mg In Ns Addvantage) 500 mg in 250 mls @ 167 mls/hr IVPB Q24H [facility]; Protocol Last Admin: 09/17/18 18:31 Dose: 167 mls/hr Insulin Aspart (Novolog) 0 unit SC ACHS [facility]; Protocol Last Admin: 09/18/18 07:58 Dose: Not Given Nifedipine (Procardia Xl) 60 mg PO Q12H [facility] Last Admin: 09/18/18 09:33 Dose: 60 mg Phenytoin Sodium (Dilantin) 200 mg PO BID [facility] Last Admin: 09/17/18 18:33 Dose: 200 mg Rosuvastatin Calcium (Crestor) 10 mg PO HS [facility] Last Admin: 09/17/18 21:13 Dose: 10 mg - Labs Labs: 09/17/18 06:32 09/17/18 06:32 PT 13.6 SECONDS (9.7-12.2) H 09/11/18 21:50 INR 1.2 09/11/18 21:50 APTT 33 SECONDS (21-34) 09/11/18 21:50
--- NOTE | 2018-09-18 11:46 | CP.PCM.PN ---
Subjective - Date & Time of Evaluation Date of Evaluation: 09/18/18 Time of Evaluation: 11:45 - Subjective Subjective: pt is seen and examined,follow up consult is dictated #[id number] increase hydralazine , d/c clonidine po Objective - Vital Signs/Intake and Output Vital Signs (last 24 hours): Temp Pulse Resp BP Pulse Ox 98.0 F 90 20 179/80 H 96 09/18/18 07:00 09/18/18 07:00 09/18/18 07:00 09/18/18 09:33 09/18/18 07:00 Intake and Output: 09/18/18 09/18/18 06:59 18:59 Intake Total 60 Output Total 800 Balance -740 - Medications Medications: Current Medications Allopurinol (Zyloprim) 100 mg PO DAILY [facility] Last Admin: 09/18/18 09:33 Dose: 100 mg Aspirin (Aspirin) 325 mg PO DAILY [facility] Last Admin: 09/18/18 09:33 Dose: 325 mg Carvedilol (Coreg) 25 mg PO Q12 [facility] Last Admin: 09/18/18 09:33 Dose: 25 mg Clonidine HCl (Catapres) 0.2 mg PO DAILY [facility] Last Admin: 09/18/18 09:33 Dose: 0.2 mg Clonidine HCl (Catapres-Tts2 0.2 Mg/24 Hr) 1 patch TD Q7D@1000 [facility] Hydralazine HCl (Apresoline) 50 mg PO BID [facility] Last Admin: 09/18/18 09:33 Dose: 50 mg Piperacillin Sod/Tazobactam Sod (Zosyn 2.25 Gm Iv Premix) 2.25 gm in 50 mls @ 100 mls/hr IVPB Q6H [facility]; Protocol Last Admin: 09/18/18 09:32 Dose: 100 mls/hr Azithromycin (Zithromax 500mg In Ns Addvantage) 500 mg in 250 mls @ 167 mls/hr IVPB Q24H [facility]; Protocol Last Admin: 09/17/18 18:31 Dose: 167 mls/hr Insulin Aspart (Novolog) 0 unit SC ACHS [facility]; Protocol Last Admin: 09/18/18 07:58 Dose: Not Given Nifedipine (Procardia Xl) 60 mg PO Q12H [facility] Last Admin: 09/18/18 09:33 Dose: 60 mg Phenytoin Sodium (Dilantin) 200 mg PO BID [facility] Last Admin: 09/18/18 11:18 Dose: 200 mg Rosuvastatin Calcium (Crestor) 10 mg PO [facility] Last Admin: 09/17/18 21:13 Dose: 10 mg - Labs Labs: 09/17/18 06:32 09/17/18 06:32 PT 13.6 SECONDS (9.7-12.2) H 09/11/18 21:50 INR 1.2 09/11/18 21:50 APTT 33 SECONDS (21-34) 09/11/18 21:50
[2018-09-18] MEDS: Azithromycin 500mg/250ML NS 500 MG/250 ML BAG IVPB SCH ×2 (13:41→18:05)
[2018-09-18 18:58] VITALS: BP 160/76; PULSE 83; TEMP 97.5; O2SAT 97
--- NOTE | 2018-09-19 01:24 | PN ---
DATE: 09/18/2018 FOLLOWUP RENAL CONSULTATION LOCATION: The patient is located in room 651, bed A. SUBJECTIVE: Mr. Wells is a 73-year-old elderly -[place] male with a past medical history significant for hypertension, seizure disorder, dementia, smoker, emphysema, TIA, hyperlipidemia and chronic kidney disease, was admitted with chief complaints of shortness of breath and cough and found to have left lung pneumonia, on IV antibiotics, with worsening renal function. The patient is feeling much better, not in distress. Denies any chest pain or palpitation. Denies any fever or cough. PHYSICAL EXAMINATION GENERAL: Mr. Wells is a 73-year-old elderly male, moderately built, moderately nourished, not in acute distress. VITAL SIGNS: This morning, blood pressure 179/80, pulse 91, respirations 20, temperature 97.5, saturation 97%. Height 5 feet 10 inches and weight is 177 pounds. HEENT: Pupils are normal and reactive to light and accommodation. Conjunctivae pink. Sclerae anicteric. Tongue is moist. NECK: Trachea is midline. LUNGS: Symmetric on both sides. Left lung breath sounds normal and clear. The patient has left basal crackles present. Right lung is not clear. CARDIOVASCULAR SYSTEM: Pound at the fifth intercostal space, midclavicular line. S1 and S2 audible. No murmur or gallop. ABDOMEN: Normal in appearance, soft, tympanitic. No guarding. No rigidity. No hepatosplenomegaly. CENTRAL NERVOUS SYSTEM: The patient is alert, awake and oriented x2. Sensory and motor system is within normal limits. EXTREMITIES: No cyanosis, no clubbing, no edema. LABORATORY DATA: No new labs available. Accu-Cheks 98 today and as of yesterday 149, 143 and 119. As of this morning, his Accu-Cheks are 190, 165 and 198. MEDICATIONS: His current medications include as follows: Hydralazine 50 mg p.o. b.i.d., aspirin 325 mg daily, clonidine 0.2 mg p.o. daily, Catapres TTS patch every week, Coreg 25 mg p.o. every 12 hours, Crestor 10 mg p.o. at bedtime, Dilantin 200 mg p.o. b.i.d., NovoLog for sliding scale, nifedipine 60 mg p.o. every 12 hours, azithromycin 500 mg daily, Zosyn 2.25 g IV every 6 hours and allopurinol 100 mg p.o. daily. ASSESSMENT AND PLAN: In summary, Mr. Wells is a 73-year-old elderly male with a history of hypertension, transient ischemic attack, dementia, emphysema and seizure disorder, was admitted with cough, shortness of breath and being treated for left lung pneumonia. 1. Acute renal failure on chronic kidney disease secondary to dehydration and decreased p.o. intake on admission. Renal function is improving, almost back to his baseline 2.3. 2. Uncontrolled hypertension. Continue his current medications; hydralazine 50 mg p.o. b.i.d., clonidine 0.2 mg p.o. daily. Consider to discontinue clonidine. Continue Catapres TTS every week, Coreg 25 mg every 12 hours, nifedipine 60 mg p.o. every 12 hours. Consider to increase hydralazine to 50 mg p.o. every 8 hours. Repeat BMP in a.m. We will follow with you. Thank you for allowing me to participate in your patient's care. Wai Ramirez MD
--- NOTE | 2018-09-19 10:06 | DS ---
DISCHARGE DIAGNOSES: Pneumonia, acute kidney injury on chronic kidney disease, sepsis, history of latent tuberculosis, on isonicotinylhydrazine prophylaxis, hypertension, hyperlipidemia, seizure disorder, transient ischemic attack, chronic kidney disease, uncontrolled blood pressure. HISTORY OF PRESENT ILLNESS: Mr. Wells is a 73-year-old male with a past medical history of hypertension, hyperlipidemia, CAD, status post right leg bypass surgery, hyperlipidemia, diabetes mellitus, gout, seizure disorder, chronic kidney disease, who has been following up at a [facility] [place], came into the emergency room brought in by the patient's family for progressive worsening shortness of breath and cough. In the ED, the patient was found to be having elevated WBC count and chest x-ray that was done with pneumonia and the patient is being admitted for further management. Today, the patient is feeling better. Denies any headache or dizziness. Denies any chest pain, shortness of breath or wheezing. Denies any nausea, vomiting, abdominal pain, diarrhea, or constipation. Denies any urinary complaints. Denies any leg pain or leg cramps. Denies any other neurologic symptoms. All other systems reviewed and were found to be negative. PHYSICAL EXAMINATION: GENERAL: An elderly male, lying in bed, in no acute distress. VITAL SIGNS: Blood pressure 160/76, pulse 83, respirations 20, temperature 97.5 degrees Fahrenheit, O2 sats 97% on room air. HEENT: Pupils are equal, round, and reacting to light and accommodation. Extraocular muscles are intact. No icterus. No pallor. No oral thrush. No pharyngeal congestion. NECK: Supple. No JVD. LUNGS: Bilateral vesicular breath sounds. No wheezing. No rhonchi. CARDIOVASCULAR SYSTEM: S1 and S2 present, regular. ABDOMEN: Soft and nontender. Bowel sounds present. No guarding. No rigidity. No rebound tenderness noted. CENTRAL NERVOUS SYSTEM: Alert, awake, oriented x3. No focal deficits noted. EXTREMITIES: No edema. Palpable peripheral pulses. LABORATORY DATA: Accu-Check 149, 143, 119, 165, 98. On one night, sodium 138, potassium 3.4, chloride 105, bicarb 23, BUN 33, creatinine 2.4, glucose 118, AST 60, ALT 186, calcium 8.8, phosphorus 3, magnesium 1.8, total protein 7.7, albumin 3.2, TSH 1.9, procalcitonin 25.55, on 09/16/2018 was 2.99. Cardiac enzymes x1 negative. Hepatitis negative. HIV negative. Influenza negative. Mycoplasma and legionella negative. EDEN negative. T3, T4 within normal limits. HOSPITAL COURSE: The patient was admitted to the hospital for pneumonia, possible sepsis. The patient was started on IV antibiotics. The patient was evaluated by Pulmonary, started on nebulizer treatments. The patient was also evaluated by ID. They recommended 7 days of IV therapy with Zosyn and Zithromax. The patient had a kidney injury. The patient was evaluated by Renal. The patient was started on genital hydration. His blood pressure have been running high. His medications were adjusted. The patient was evaluated by Cardiology. As the patient completed 7 days of IV antibiotics and cleared by all the consultants, the family want the patient to be going to subacute rehab. [employer] made all arrangements for the patient to be discharged to subacute rehab to [facility]. The patient is being transferred after getting clearance from all the consultants. His renal function improved at his baseline creatinine of 2.3 to 2.4. CONDITION UPON DISCHARGE: The patient is alert, awake, and oriented x3 and hemodynamically stable at the time of discharge. DISCHARGE INSTRUCTIONS: Followup with PMD. Followup with Pulmonary. Followup with Renal. Followup with Cardiology. DISCHARGE MEDICATIONS: Aspirin 325 mg daily, Coreg 25 mg p.o. every 12 hours, clonidine 0.2 mg for 24-hour patch every 7 days, hydralazine 50 mg daily, Crestor 25 mg p.o. at bedtime, Dilantin 200 mg p.o. b.i.d., Procardia 60 mg p.o. every 12 hours, Augmentin 1 tab p.o. every 12 hours for 5 days, allopurinol 100 mg p.o. daily, DuoNeb as needed, vitamin B12 daily, vitamin D3 at 2000 units daily, INH 300 mg p.o. daily along with pyridoxine 25 mg p.o. daily. DISCHARGE DIET: Heart healthy, low-sodium diet. ACTIVITY: As tolerated. Judie Ramirez MD
== END 2018-09-18 21:01 | DRG 871 ==
LOC: C.ER 20:13 → C.9E 22:11 → C.6T 09-12 13:10
PROVIDERS: ADMIT Internal Medicine; ATTEND Internal Medicine
DX: A41.9 Sepsis, unspecified organism (principal); J18.9 Pneumonia, unspecified organism; N17.0 Acute kidney failure with tubular necrosis; I12.9 Hypertensive chronic kidney disease with stage 1 through stage 4 chronic kidney disease, or unspecified chronic kidney disease; R65.20 Severe sepsis without septic shock; N18.9 Chronic kidney disease, unspecified; E86.0 Dehydration; E11.22 Type 2 diabetes mellitus with diabetic chronic kidney disease; G40.909 Epilepsy, unspecified, not intractable, without status epilepticus; E78.00 Pure hypercholesterolemia, unspecified; M10.9 Gout, unspecified; I25.10 Atherosclerotic heart disease of native coronary artery without angina pectoris; Z86.73 Personal history of transient ischemic attack (TIA), and cerebral infarction without residual deficits; Z87.891 Personal history of nicotine dependence; Z86.11 Personal history of tuberculosis